=== PATIENT | male | born 1965 | race Caucasian/White ===

== ENCOUNTER 2021-06-20 11:27 | Inpatient (IN) ==
--- NOTE | 2021-06-20 12:43 | XRay Report ---
XR chest 2V PA/lateral HISTORY: Shortness of breath. Cough. COMPARISON: None. FINDINGS: The lungs are clear. Cardiac silhouette is normal in size. No pleural effusions. No pneumot horax. IMPRESSION: No acute process. ACT 112: Negative or not required by law. Electronically signed by: Lalit Orlando M.D. 06/20/2021 12:42 PM
[2021-06-20 12:45] LABS: Basophils # (auto) 0.02 K/uL (0-0.2); Basophils % (auto) 0.5 %; Eosinophils # (auto) 0.15 K/uL (0-0.5); Eosinophils % (auto) 3.4 %; Hematocrit (blood only) 46.5 % (42-52); Immature Granulocytes # (auto) 0.04 K/uL (0.00-0.02); Immature Granulocytes % (auto) 0.9 %; Lymphocytes # (auto) 1.52 K/uL (1.2-3.4); Lymphocytes % (auto) 34.6 %; Mean Corpuscular Hemoglobin 29.4 pg (25-34); Mean Corpuscular Hgb Conc 34.4 g/dL (32-36); Mean Corpuscular Volume 85.3 fL (80-100); Mean Platelet Volume 10.5 fL (7.4-10.4); Monocytes # (auto) 0.55 K/uL (0.11-0.59); Monocytes % (auto) 12.5 %; Neutrophils # (auto) 2.11 K/uL (1.4-6.5); Neutrophils % (auto) 48.1 %; Platelet Count 230 K/uL (130-400); RDW Coefficient of Variation 13.3 % (11.5-14.5); RDW Standard Deviation 41.6 fL (36.4-46.3); Red Blood Count 5.45 M/uL (4.7-6.1); White Blood Count 4.39 K/uL (4.8-10.8)
[2021-06-20 13:04] LABS: Albumin Globulin Ratio 1.4 (0.9-2); Albumin Level 4.4 gm/dl (3.4-5.0); BUN Creatinine Ratio 14.3 (10-20); Bilirubin,Total 0.7 mg/dl (0.2-1.0); Calcium 9.1 mg/dl (8.5-10.1); Est GFR (African American) 28.4 ml/min; Est GFR (Non-African American) 24.5 ml/min; Globulin 3.2 gm/dl (2.5-4.0); Potassium 5.7 mmol/L (3.5-5.1); Total Protein 7.6 gm/dl (6.0-8.3)
[2021-06-20 13:22] LABS: Influenza A virus by PCR Negative (Neg); Influenza B virus by PCR Negative (Neg); RSV by PCR Negative (Neg)
[2021-06-20 13:27] LABS: SARS CoV2 RNA(COVID-19) InHosp POSITIVE (Negative)
[2021-06-20] MEDS ORDERED: ONDANSETRON INJ 2 MG/ML 2 ML VIAL IV STA (14:19)
[2021-06-20] MEDS ORDERED: SODIUM CHLORIDE 0.9% 1000ML 1,000 ML IV ONE (14:19)
--- NOTE | 2021-06-20 14:27 | Emergency Department Note ---
Impression & Plan Weakness, CHRISTINA (acute kidney injury), Vomiting and diarrhea, COVID-19, Acute hyponatremia ED Provider Note NAME: GRICEL MALDONADO AGE: 56 SEX: M : 1965 ARRIVES VIA: Walk-In INFORMANT: [Patient] ED PROVIDER(S): [Jerman Carrillo MD] CHIEF COMPLAINT: Referred by HISTORY OF PRESENT ILLNESS: The patient is a 56-year-old male who presents to the ER with 8 days of sympt oms. For the last 5 or 6 days, he has felt quite a bit worse. He has had vomiting and diarrhea. Some occasional fever. The patient has noticed some chills and a mild cough. He has a slight stuffy nose. No sore throat, no shortness of breath. He does not have his COVID or influenza vaccinations. No k nown exposures to either. The patient states that in the last couple of days, he has been feeling quite weak. He is worried about dehydration. Of note, on Thursday, 2 days ago, the patient had a telehealth visit and was prescribed doxycycline for potential sinusitis. He has been using Pepto-Bismol for his diarrhea, Sudafed for his nasal congestion. REVIEW OF SYSTEMS: See HPI for pertinent positives and negatives. A total of ten systems were reviewed and were otherwise negative. PMHx/PSHx: See Below SOCIAL HISTORY: See Below. PHYSICAL EXAM: GENERAL: Patient is in no acute distress. Wearing a mask. HEENT: No acute trauma, normocephalic atraumatic, mucous membranes moist, no nasal congestion, no scleral icterus. NECK: No stridor, no adenopathy, no meningismus, trachea is midline. LUNGS: Clear to auscultation bilaterally, no wheeze, no rhonchi, breath sounds equal. HEART: Without murmurs gallops or rubs, regular rate and rhythm. ABDOMEN: Soft, nontender, bowel sounds positive, no hernias, no peritonitis. EXTREMITIES: No cyanosis or edema, full range of motion of all the joints without pain or difficulty, no signs for acute trauma. NEUROLOGIC: Oriented x 3, no acute motor or sensory deficits, no focal weakness. SKIN: No rash, no jaundice, no diaphoresis. DIFFERENTIAL DIAGNOSIS: Infection, COVID-19, influenza, dehydration, metabolic abnormality, hypo/hyperglycemia, electrolyte disturbance, anemia, hypoxia, cardiac sources, as well as other pathologies. EMERGENCY DEPARTMENT COURSE/PROCEDURES: ECG: Indication was weakness. The ECG shows a normal sinus rhythm with a rate of 68. There is no ST elevation, no PVCs. There is potential lateral infarct seen thought to be old. QTC is 435. Continuous Cardiac Monitoring: An order was placed for continuous cardiac monitoring. The monitor shows a rate of 71 with normal sinus rhythm. MEDICAL DECISION MAKING: There is a lower white count, more consistent with a viral illness. There is a normal hemoglobin and platelet count. Sodium was low at 129, potassium was a little bit high at 5.7. There was evidence for acute kidney injury with a creatinine of 2.73. Lactic acid level was not elevated making sepsis less likely. Alk phos was a bit high, the remaining liver enzymes were unremarkable. The patient appeared to be in a euthyroid state. COVID testing returned positive. Influenza and RSV testing returned negative. Chest x-ray does not show pneumonia. The patient presents with over a week of symptoms. He is positive for COVID-19. He has acute kidney injury from his vomiting and diarrhea. His sodium is low. He requires a hospital stay. I spoke with the patient, I spoke with case management, the on-call hospitalist was consulted. Patient was given IV saline, 1 L. He received IV Zofran for nausea. He is currently resting comfortably. Past Med/Surg History Medical History Recurrent sinus infections Family History (Updated 12/20/20 @ 07:55 by Sierra Neal) Father Myocardial infarction Denies family history of Ovarian cancer Prostate cancer Breast cancer Colorectal cancer Social History Smoking Status: Never smoker Age Started Using Tobacco: 19; Age Quit Using Tobacco: 28; packs per day: 0.5; Years Smoked: 9; Cigarettes Per Day: 10; Number of Years Since Quit: 27; Second Hand Exposure: No; Hx Alcohol Use: No Hx Substance Use: No Visual Impairment: No Limitations Hearing Ability: Normal marital status: Current Living Situation: Spouse current occupational status: employed Feels Safe at Home: Yes Childhood Exposure to Second-Hand Smoke: Yes Dental Care, Regularly: Yes Physical Activity Frequency: 3-4 Times per Week Allergies Allergies Allergy/AdvReac Type Severity Reaction Status Date / Time Penicillins Allergy Mild Unverified 06/11/21 14:01 Home Meds Home Medications Medication Instructions Recorded Confirmed plohpjk-ufpsoobqahbjg-kkruqwkj 250 1 tab PO Q6H PRN 06/11/21 06/20/21 mg-250 mg-65 mg tablet (Excedrin Extra Strength) loratadine 10 mg tablet 10 mg PO DAILY PRN 06/11/21 06/20/21 pseudoephedrine HCl 120 mg 60 mg PO BID PRN tab 06/11/21 06/20/21 tablet,extended release (Sudafed 12 Hour) amlodipine 5 mg tablet 5 mg PO HS 06/20/21 06/20/21 lisinopril 40 mg tablet 40 mg PO QPM 06/20/21 06/20/21 metoprolol succinate 50 mg 50 mg PO QPM 06/20/21 06/20/21 tablet,extended release 24 hr potassium chloride 20 mEq 40 meq PO QPM 06/20/21 06/20/21 tablet,extended release(part/cryst) spironolactone 50 mg tablet 100 mg PO QPM 06/20/21 06/20/21 Previous Rx's Medication Instructions Recorded atorvastatin 40 mg tablet 40 mg PO QPM #90 tab 12/20/20 ibuprofen 800 mg tablet 800 mg PO TID PRN #270 tab 12/20/20 levothyroxine 50 mcg tablet 50 mcg PO DAILY #90 tab 12/20/20 doxycycline hyclate 100 mg capsule 100 mg PO BID #14 cap 06/18/21 ondansetron HCl 8 mg tablet 8 mg PO Q8H PRN #30 tab 06/20/21 Results & Data (ED) Vital Signs Vital Signs - 24 hr 06/20/21 11:53 06/20/21 14:42 Temperature 37.1 C Temperature Source Temporal Artery Scan Pulse Rate 71 Pulse Rate [Apical] 64 Respiratory Rate 18 15 Respiratory Effort / Characteristics Non-Labored Spontaneous Respiratory Depth Normal Respiratory Pattern Regular Blood Pressure 108/75 Blood Pressure [Right Arm] 138/85 Blood Pressure Mean 86 Blood Pressure Mean [Right Arm] 102 Blood Pressure Position Sitting Pulse Oximetry 95 95 Oxygen Delivery Method Room Air Room Air Sepsis Recent Fever Within 48 Hours Yes Sepsis New/Unexplained Change in Mental Status No Sepsis Action Taken by Nursing No Action Required Home Medications Current Medication List: was personally reviewed by me Laboratory Data Attestation: I reviewed the patient's lab results. Result diagrams: 06/20/21 12:24 06/20/21 12:24 Lab Results 06/20/21 06/20/21 06/20/21 Range/Units 12:24 12:24 12:24 WBC 4.39 L (4.8-10.8) K/uL RBC 5.45 (4.7-6.1) M/uL Hgb 16.0 (14.0-18.0) g/dL Hct 46.5 (42-52) % MCV 85.3 (80-100) fL MCH 29.4 (25-34) pg MCHC 34.4 (32-36) g/dL RDW Std Deviation 41.6 (36.4-46.3) fL RDW Coeff of Cathie 13.3 (11.5-14.5) % Plt Count 230 (130-400) K/uL MPV 10.5 H (7.4-10.4) fL Immature Gran % (Auto) 0.9 % Neut % (Auto) 48.1 % Lymph % (Auto) 34.6 % Runnels % (Auto) 12.5 % Eos % (Auto) 3.4 % Baso % (Auto) 0.5 % Neut # (Auto) 2.11 (1.4-6.5) K/uL Lymph # (Auto) 1.52 (1.2-3.4) K/uL Runnels # (Auto) 0.55 (0.11-0.59) K/uL Eos # (Auto) 0.15 (0-0.5) K/uL Baso # (Auto) 0.02 (0-0.2) K/uL Immature Gran # (Auto) 0.04 H (0.00-0.02) K/uL Sodium 129 L (136-145) mmol/L Potassium 5.7 H (3.5-5.1) mmol/L Chloride 100 (98-107) mmol/L Carbon Dioxide 21 (21-32) mmol/L Anion Gap 8 (3-11) BUN 39 H (6-23) mg/dl Creatinine 2.73 H (0.6-1.4) mg/dl Est Cr Clr Drug Dosing 28.0 ml/min Est GFR ( Amer) 28.4 ml/min Est GFR (Non-Af Amer) 24.5 ml/min BUN/Creatinine Ratio 14.3 (10-20) Glucose 114 H (70-99(Fasting)) mg/dl Calcium 9.1 (8.5-10.1) mg/dl Magnesium (1.7-2.4) mg/dl Total Bilirubin 0.7 (0.2-1.0) mg/dl AST 30 (13-39) U/L ALT 39 (7-52) U/L Alkaline Phosphatase 131 H (34-104) U/L Total Protein 7.6 (6.0-8.3) gm/dl Albumin 4.4 (3.4-5.0) gm/dl Globulin 3.2 (2.5-4.0) gm/dl Albumin/Globulin Ratio 1.4 (0.9-2) Procalcitonin (0-0.5) ng/ml TSH (0.300-4.500) uIu/ml SARS-CoV-2 (PCR) POSITIVE A* (Negative) Influenza Type A (PCR) Negative (Neg) Influenza Type B (PCR) Negative (Neg) RSV (RT-PCR) Negative (Neg) 06/20/21 06/20/21 06/20/21 Range/Units 12:24 12:24 14:19 WBC (4.8-10.8) K/uL RBC (4.7-6.1) M/uL Hgb (14.0-18.0) g/dL Hct (42-52) % MCV (80-100) fL MCH (25-34) pg MCHC (32-36) g/dL RDW Std Deviation (36.4-46.3) fL RDW Coeff of Cathie (11.5-14.5) % Plt Count (130-400) K/uL MPV (7.4-10.4) fL Immature Gran % (Auto) % Neut % (Auto) % Lymph % (Auto) % Runnels % (Auto) % Eos % (Auto) % Baso % (Auto) % Neut # (Auto) (1.4-6.5) K/uL Lymph # (Auto) (1.2-3.4) K/uL Runnels # (Auto) (0.11-0.59) K/uL Eos # (Auto) (0-0.5) K/uL Baso # (Auto) (0-0.2) K/uL Immature Gran # (Auto) (0.00-0.02) K/uL Sodium (136-145) mmol/L Potassium (3.5-5.1) mmol/L Chloride (98-107) mmol/L Carbon Dioxide (21-32) mmol/L Anion Gap (3-11) BUN (6-23) mg/dl Creatinine (0.6-1.4) mg/dl Est Cr Clr Drug Dosing ml/min Est GFR ( Amer) ml/min Est GFR (Non-Af Amer) ml/min BUN/Creatinine Ratio (10-20) Glucose (70-99(Fasting)) mg/dl Calcium (8.5-10.1) mg/dl Magnesium 1.8 (1.7-2.4) mg/dl Total Bilirubin (0.2-1.0) mg/dl AST (13-39) U/L ALT (7-52) U/L Alkaline Phosphatase (34-104) U/L Total Protein (6.0-8.3) gm/dl Albumin (3.4-5.0) gm/dl Globulin (2.5-4.0) gm/dl Albumin/Globulin Ratio (0.9-2) Procalcitonin 0.07 (0-0.5) ng/ml TSH 2.023 (0.300-4.500) uIu/ml SARS-CoV-2 (PCR) (Negative) Influenza Type A (PCR) (Neg) Influenza Type B (PCR) (Neg) RSV (RT-PCR) (Neg) Administered Medications Sodium Chloride (Nss 1000ml) 1,000 mls @ 175 mls/hr IV .[id number] MALAIKA Stop: 06/21/21 08:23 Last Admin: 06/20/21 16:57 Dose: 175 mls/hr Documented by: [id number] Discontinued Medications Sodium Chloride (Nss 1000ml) 1,000 mls @ 999 mls/hr IV .Q1H1M ONE Stop: 06/20/21 15:19 Last Infusion: 06/20/21 16:58 Dose: 0 mls/hr Documented by: [id number] Admin: 06/20/21 14:46 Dose: 999 mls/hr Documented by: [id number] Ondansetron HCl (Ondansetron Inj 2 Mg/Ml 2 Ml Vial) 4 mg IV NOW STA Stop: 06/20/21 14:20 Last Admin: 06/20/21 14:46 Dose: 4 mg Documented by: [id number] Imaging Data Radiologist's Impression: Chest X-Ray 06/20/21 11:57 XR chest 2V PA/lateral HISTORY: Shortness of breath. Cough. COMPARISON: None. FINDINGS: The lungs are clear. Cardiac silhouette is normal in size. No pleural effusions. No pneumothorax. IMPRESSION: No acute process. ACT 112: Negative or not required by law. Electronically signed by: Lalit Orlando M.D. 06/20/2021 12:42 PM Discharge Plan Visit Data Chief Complaint: Referred by Doctor Stated Complaint: FEVER CHILLS DIARRHEA WEAK COUGH ED Provider: Jerman Carrillo Discharge Problem: Weakness, CHRISTINA (acute kidney injury), Vomiting and diarrhea, COVID-19, Acute hyponatremia Patient Disposition: Admitted As Inpatient Condition: Fair Discharge Instructions Interventions: ED Discharge Assessment Last Done: 06/20/21 17:22
--- NOTE | 2021-06-20 15:01 | History & Physical Report ---
Date of Service June 20, 2021 Assessment & Plan (1) Diarrhea: Plan: Pending c. diff and PCR stool testing; if negative will start on Imodium Suspect secondary to SARS-COV-2 (2) Mesenteric panniculitis: Plan: Seen on prior outpatient CT as workup for hyperaldosteronism on May 24. ?secondary to COVID. If diarrhea not improving consider mesenteric panniculitis causing diarrhea ?Rx prednisone. No abdominal pain or severe obstructive symptoms to suggest need to rescan at this time. Lactate WNL (3) SARS-CoV-2 positive: Plan: No pneumonia caused by this. No need for specific COVID-19 treatment at this time. Unvaccinated First day of illness: June 12 First COVID test positive: June 20 (4) CHRISTINA (acute kidney injury): Plan: Suspect pre-renal in setting of diarrhea as above. UA unremarkable. NSS 1L bolus given in ER Start 1.5x maintenance @ 175ml/hr for 3L Monitor BMP in AM (5) Hyperkalemia: Plan: Suspect secondary to CHRISTINA with spironolactone and potassium supplementation Repeat with next set of labs. Anticipate no specific treatment required for this other than hydration. Monitor closely for rebound hypokalemia due to hyperaldosteronism. (6) Hyperaldosteronism: Plan: Hold potassium supplementation and spironolactone as above (7) Hypothyroidism: Plan: TSH WNL Continue levothyroxine 50 mcg PO daily (8) Primary hypopituitarism: Plan: Noted on no specific medications for this (9) Hypertension: Plan: Holding spironolactone and lisinopril in setting of CHRISTINA as above Continue metoprolol succinate 50mg PO daily (10) Hyperlipidemia: Plan: Continue atorvastatin 40mg PO daily Plan: VTE Prophylaxis - in setting of SARS-COV-2 will start heparin 5000 units SQ TID Diet - low potassium Disposition - admit to med/tele Admission and Anticipated Discharge Date Admission Date: June 20, 2021 History of Present Illness Chief Complaint: Diarrhea Primary Care Provider: NAYELY Klein Ever Woodall is a 56 year old male who presents to the ER with diarrhea for the past 8 days. Associated fever, chills, nausea, vomiting, loss of appetite, generalized weakness, nasal congestion and sinus pain. Nausea and vomiting especially bad in the last 2-3 days. No significant abdominal pain. Initially he was treated outpatient with doxycycline for sinusitis as he commonly gets this, this time of year. This is on a background of being treated for hyperaldosteronism by Dr Kim and was recently started on spironolactone 2-3 weeks ago, doubled at his appointment with Dr Kim 9 days ago. He is also taking potassium supplementation for hypokalemia. He recently had a CT abdominal scan for workup for hyperaldosteronism which showed mesenteric panniculitis. He reports not having diarrhea at that time. In the ER he tested positive for SARS-COV-2. He is unvaccinated. He is not short of breath or requiring oxygen at this time. He was started rehydrated with NSS 1L bolus and ondansetron for nausea. Allergies Allergy/AdvReac Type Severity Reaction Status Date / Time Penicillins Allergy Mild Unverified 06/11/21 14:01 Home Medications Medication Instructions Recorded Confirmed Type atorvastatin 40 mg tablet 40 mg PO QPM #90 tab 12/20/20 06/20/21 Rx ibuprofen 800 mg tablet 800 mg PO TID PRN #270 tab 12/20/20 06/20/21 Rx levothyroxine 50 mcg tablet 50 mcg PO DAILY #90 tab 12/20/20 06/20/21 Rx nloypwi-xozlwpxwawkrs-hmefvdje 250 1 tab PO Q6H PRN 06/11/21 06/20/21 History mg-250 mg-65 mg tablet (Excedrin Extra Strength) loratadine 10 mg tablet 10 mg PO DAILY PRN 06/11/21 06/20/21 History pseudoephedrine HCl 120 mg 60 mg PO BID PRN tab 06/11/21 06/20/21 History tablet,extended release (Sudafed 12 Hour) doxycycline hyclate 100 mg capsule 100 mg PO BID #14 cap 06/18/21 06/20/21 Rx amlodipine 5 mg tablet 5 mg PO HS 06/20/21 06/20/21 History lisinopril 40 mg tablet 40 mg PO QPM 06/20/21 06/20/21 History metoprolol succinate 50 mg 50 mg PO QPM 06/20/21 06/20/21 History tablet,extended release 24 hr ondansetron HCl 8 mg tablet 8 mg PO Q8H PRN #30 tab 06/20/21 06/20/21 Rx potassium chloride 20 mEq 40 meq PO QPM 06/20/21 06/20/21 History tablet,extended release(part/cryst) spironolactone 50 mg tablet 100 mg PO QPM 06/20/21 06/20/21 History Past Med/Surg History Medical History (Updated 06/21/21 @ 01:51 by Orion Hahn MD) Arthritis Hyperaldosteronism Hypothyroidism Primary hypopituitarism Recurrent sinus infections Family History (Updated 12/20/20 @ 07:55 by Sierra Neal) Father Myocardial infarction Denies family history of Ovarian cancer Prostate cancer Breast cancer Colorectal cancer Social History Smoking Status: Former smoker Age Started Using Tobacco: 19; Age Quit Using Tobacco: 28; packs per day: 0.5; Years Smoked: 9; Cigarettes Per Day: 10; Number of Years Since Quit: 27; Second Hand Exposure: No; Do You Dip or Chew Tobacco: Yes; Tobacco Cessation Education Requested by Patient: No Hx Alcohol Use: No Hx Substance Use: No Preferred Language: French Communication Ability: Effective Visual Impairment: No Limitations Hearing Ability: Normal Saloonkeeper Required: No Beliefs That Will Affect Care: None marital status: Current Living Situation: Spouse current occupational status: employed Other Information That Helps Us Care for You: No Feels Safe at Home: Yes Childhood Exposure to Second-Hand Smoke: Yes Dental Care, Regularly: Yes Physical Activity Frequency: 3-4 Times per Week Assistive Devices: Glasses Review of Systems Review of Systems: All systems reviewed & are unremarkable except as noted in HPI & below Physical Exam Constitutional: WD/WN, vitals as above Eyes: + anicteric sclerae; normal pupil size ENMT: external ear and nose normal, oropharynx normal Respiratory: normal respiratory effort; no respiratory distress Auscultation: + crackles (fine bibasal); no wheezes Cardiovascular: RRR, no murmur, no edema Gastrointestinal (Abdomen): normal bowel sounds, soft, nontender, no hepatosplenomegaly Musculoskeletal: no cyanosis or clubbing, extremities motor strength 5/5 Skin: no rashes, warm and dry Neurologic: moves all extremities and awake; no focal motor deficits and not confused Speech / Cognition: normal speech Motor/Sensory: no tremor Psychiatric: A+Ox3, euthymic affect Results & Data Results & Data ([facility]) Vital Signs (Past 12 Hours) Vital Signs Temp Pulse Pulse Resp BP BP Pulse Ox 06/20/21 14:42 64 15 138/85 95 06/20/21 11:53 37.1 C 71 18 108/75 95 Laboratory Results Abnormal lab results 06/20/21 06/20/21 06/20/21 Range/Units 12:24 12:24 12:24 WBC 4.39 L (4.8-10.8) K/uL MPV 10.5 H (7.4-10.4) fL Immature Gran # (Auto) 0.04 H (0.00-0.02) K/uL Sodium 129 L (136-145) mmol/L Potassium 5.7 H (3.5-5.1) mmol/L BUN 39 H (6-23) mg/dl Creatinine 2.73 H (0.6-1.4) mg/dl Glucose 114 H (70-99(Fasting)) mg/dl Alkaline Phosphatase 131 H (34-104) U/L SARS-CoV-2 (PCR) POSITIVE A* (Negative) Diagnostic Findings XR chest 2V PA/lateral HISTORY: Shortness of breath. Cough. COMPARISON: None. FINDINGS: The lungs are clear. Cardiac silhouette is normal in size. No pleural effusions. No pneumothorax. IMPRESSION: No acute process. Medications Administered ER Medications Given: NSS 1L bolus Ondansetron 4mg IV ECG Indication: toxicologic (electrolyte abnormality) Rate (beats per minute): 68 Rhythm: normal sinus Findings: + other (poor R wave progression) and + left axis deviation Comparison ECG Date: from (2008) Change: the following changes noted (poor R wave progression ?lead placement is new) Code Status & VTE Plan Code Status Full VTE Prophylaxis Plan VTE Prophylaxis will be ordered: Yes PG Care Time/CCT Total # of Minutes Spent Total Time Spent with Patient: Total time spent is greater than 50% in coordination of care (as documented) at patient's floor/unit and/or counseling patient: Coding Level of Care Code 86399 Initial Inpt Care Lvl 3 Diagnoses SARS-CoV-2 positive U07.1 Diarrhea R19.7 CHRISTINA (acute kidney injury) N17.9 Hyperkalemia E87.5 Hyperaldosteronism E26.9 Hypothyroidism E03.9 Primary hypopituitarism E23.0 Mesenteric panniculitis K65.4 Hypertension I10 Hyperlipidemia E78.5
[2021-06-20] MEDS: SODIUM CHLORIDE 0.9% 1000ML 1,000 ML IV SCH (16:57)
[2021-06-20] MEDS ORDERED: LORATADINE 10 MG TAB PO PRN (17:22)
[2021-06-20] MEDS ORDERED: ONDANSETRON INJ 2 MG/ML 2 ML VIAL IV PRN (17:22)
[2021-06-20] MEDS ORDERED: LOPERAMIDE HCL 2 MG CAP PO PRN (17:22)
[2021-06-20] MEDS ORDERED: ACETAMINOPHEN 325 MG TAB PO PRN (17:22)
[2021-06-20] MEDS: ATORVASTATIN 40 MG TAB PO SCH (21:14)
[2021-06-20] MEDS: METOPROLOL SUCC 50MG EXT REL TAB PO SCH (21:14)
[2021-06-20] MEDS ORDERED: ENOXAPARIN INJ 30 MG/0.3 ML SYR SQ SCH (22:00)
[2021-06-20 22:16] LABS: BUN Creatinine Ratio 15.1 (10-20); Calcium 7.9 mg/dl (8.5-10.1); Est GFR (African American) 33.4 ml/min; Est GFR (Non-African American) 28.8 ml/min; Potassium 4.7 mmol/L (3.5-5.1)
[2021-06-20 22:55] LABS: Appearance Urine Clear (Clear); Bilirubin Urine Negative (Negative); Blood Urine Negative (Negative); Color Urine Yellow; Glucose Urine UA Negative (Negative); Ketones Urine Negative (Negative); Leukocyte Esterase Urine Negative (Negative); Nitrite Urine Negative (Negative); Protein Urine Negative (Negative); Specific Gravity Urine 1.012 (1.000-1.030); Urobilinogen Urine Negative (Negative)
[2021-06-20] MEDS: HEPARIN SOD 5,000 UNIT/0.5 ML VIAL SQ SCH (23:01)
[2021-06-21] MEDS: SODIUM CHLORIDE 0.9% 1000ML 1,000 ML IV SCH ×3 (00:05→18:21)
[2021-06-21] MEDS: LEVOTHYROXINE SODIUM 50 MCG TABLET PO SCH (05:39)
[2021-06-21] MEDS: HEPARIN SOD 5,000 UNIT/0.5 ML VIAL SQ SCH ×3 (05:39→21:54)
[2021-06-21 05:42] LABS: Hematocrit (blood only) 40.3 % (42-52); Hemoglobin 13.8 g/dL (14.0-18.0); Mean Corpuscular Hemoglobin 29.5 pg (25-34); Mean Corpuscular Hgb Conc 34.2 g/dL (32-36); Mean Corpuscular Volume 86.1 fL (80-100); Mean Platelet Volume 10.1 fL (7.4-10.4); Platelet Count 166 K/uL (130-400); RDW Coefficient of Variation 13.4 % (11.5-14.5); Red Blood Count 4.68 M/uL (4.7-6.1); White Blood Count 4.34 K/uL (4.8-10.8)
[2021-06-21 06:10] LABS: Basophils # (auto) 0.02 K/uL (0-0.2); Basophils % (auto) 0.5 %; Eosinophils # (auto) 0.18 K/uL (0-0.5); Eosinophils % (auto) 4.1 %; Immature Granulocytes # (auto) 0.03 K/uL (0.00-0.02); Immature Granulocytes % (auto) 0.7 %; Lymphocytes # (auto) 2.17 K/uL (1.2-3.4); Monocytes # (auto) 0.55 K/uL (0.11-0.59); Monocytes % (auto) 12.7 %; Neutrophils # (auto) 1.39 K/uL (1.4-6.5)
[2021-06-21 06:32] LABS: BUN Creatinine Ratio 16.3 (10-20); Calcium 7.6 mg/dl (8.5-10.1); Creatinine Clr Calc Pharmacy 36.8 ml/min; Est GFR (African American) 39.5 ml/min; Est GFR (Non-African American) 34.1 ml/min
[2021-06-21 11:02] LABS: Adenovirus F 40/41 PCR Not Detected (NotDetected); Astrovirus PCR Not Detected (NotDetected); Campylobacter PCR Not Detected (NotDetected); Clostridium diff Toxin A/B PCR Not Detected (NotDetected); Cryptosporidium PCR Not Detected (NotDetected); Cyclospora cayetanensis PCR Not Detected (NotDetected); Entamoeba histolytica PCR Not Detected (NotDetected); Enteroaggregative E.coli(EAEC) Not Detected (NotDetected); Enteropathogenic E.coli (EPEC) Not Detected (NotDetected); Enterotoxigenic E.coli (ETEC) Not Detected (NotDetected); Giardia lamblia PCR Not Detected (NotDetected); Norovirus GI/GII PCR Not Detected (NotDetected); Plesiomonas shigelloides PCR Not Detected (NotDetected); Rotavirus A PCR Not Detected (NotDetected); Salmonella PCR Not Detected (NotDetected); Sapovirus PCR Not Detected (NotDetected); Shiga-like Toxin E.coli (STEC) Not Detected (NotDetected); Shigella/Enteroinvasive E.coli Not Detected (NotDetected); Vibrio cholerae PCR Not Detected (NotDetected); Vibrio species PCR Not Detected (NotDetected); Yersinia enterocolitica PCR Not Detected (NotDetected)
--- NOTE | 2021-06-21 16:43 | Hospitalist Progress Note ---
Date of Service June 21, 2021 Assessment & Plan (1) Diarrhea: Plan: - IMPROVING - suspect secondary to COVID - C. diff and PCR stool studies are negative; Imodium PRN (so far hasn't needed any) (2) Mesenteric panniculitis: Plan: - Seen on prior outpatient CT as workup for hyperaldosteronism on May 23. - If diarrhea not improving consider mesenteric panniculitis causing diarrhea ?Rx prednisone. -- however seems to be improving - No abdominal pain or severe obstructive symptoms to suggest need to rescan at this time. - Lactate WNL (3) SARS-CoV-2 positive: Plan: - No pneumonia caused by this. No need for specific COVID-19 treatment at this time; remains on RA - Unvaccinated - First day of illness: June 12; First COVID test positive: June 20 (4) CHRISTINA (acute kidney injury): Plan: - Suspect pre-renal in setting of diarrhea as above. UA unremarkable. - NSS 1L bolus given in ER - then given 1.5x maintenance @ 175ml/hr for 3L - Continue NSS at 80 mL/hr for now with labs in AM - Hold Lisinopril (5) Hyperkalemia: Plan: - Suspect secondary to CHRISTINA with spironolactone and potassium supplementation - improving at 5.2 and will monitor - Anticipate no specific treatment required for this other than hydration. - Monitor closely for rebound hypokalemia due to hyperaldosteronism. (6) Hyperaldosteronism: Plan: - Hold potassium supplementation and spironolactone as above (7) Hypothyroidism: Plan: - TSH WNL - Continue levothyroxine 50 mcg PO daily (8) Primary hypopituitarism: Plan: - Noted on no specific medications for this (9) Hypertension: Plan: - Holding spironolactone and lisinopril in setting of CHRISTINA as above; hold amlodipine - Continue metoprolol succinate 50mg PO daily (10) Hyperlipidemia: Plan: - Continue atorvastatin 40mg PO daily (11) Hyponatremia: Plan: - Likely multifactorial - holding around 128-129; await AM labs Plan: VTE Prophylaxis - in setting of SARS-COV-2 will start heparin 5000 units SQ TID Diet - low potassium Disposition - AM labs; anticipate likely can return home tomorrow pending labs and diarrhea/symptoms Admission and Anticipated Discharge Date Admission Date: June 20, 2021 Subjective No acute events overnight. Reports feeling better and only had one bowel movement this AM. PCR testing and C. diff is negative. Creatinine is improving. Has a cough but no shortness of breath in regards to COVID. Has been able to eat better today. Verbalizes no new complaints Review of Systems Review of Systems: All systems reviewed & are unremarkable except as noted in Subjective Physical Exam Physical Exam: PHYSICAL EXAM General Appearance: WDWN in NAD who is A&O x 3 HEENT: Head is normocephalic/atraumatic; Hearing grossly intact Neck: Supple; Trachea midline; Neg JVD Heart: RRR with no M/G/R Lungs: CTA in all lung river bilaterally; Respirations unlabored; Neg accessory muscle use Abdomen: Soft, non-tender, non-distended; Positive BS x 4 quadrants Extremities: Neg cyanosis or edema Neurological: Speech clear; Gross motor/sensory function intact; Neg focal n eurologic deficits Psychiatric: Appropriate mood/affect Skin: Normal Color; Warm/Dry Results & Data Results & Data ([facility]) Vital Signs (Past 12 Hours) Vital Signs Temp Pulse Resp BP Pulse Ox 06/21/21 14:32 37.6 C H 71 20 127/79 95 06/21/21 09:45 67 18 113/86 95 06/21/21 05:43 37.0 C 60 20 129/81 94 PG Care Time/CCT Total # of Minutes Spent Total Time Spent with Patient: Total time spent is greater than 50% in coordination of care (as documented) at patient's floor/unit and/or counseling patient: Coding Level of Care Code 22834 Subseq Hosp Care Lvl 3 Diagnoses Diarrhea R19.7 Mesenteric panniculitis K65.4 SARS-CoV-2 positive U07.1 CHRISTINA (acute kidney injury) N17.9 Hyperkalemia E87.5 Hyperaldosteronism E26.9 Hypothyroidism E03.9 Primary hypopituitarism E23.0 Hypertension I10 Hyperlipidemia E78.5 Hyponatremia E87.1
--- NOTE | 2021-06-21 19:09 | Electrocardiogram Report ---
Test Reason : Blood Pressure : / mmHG Vent. Rate : 068 BPM Atrial Rate : 068 BPM P-R Int : 158 ms QRS Dur : 084 ms QT Int : 410 ms P-R-T Axes : 017 -63 042 degrees QTc Int : 435 ms Normal sinus rhythm Left axis deviation Possible Anterior infarct , age undetermined Abnormal ECG When compared with ECG of 31-MAY-2009 10:40, Borderline criteria for Anterior infarct are now Present Confirmed by Bryan Mayes ([id number]) on 06/21/2021 7:09:11 PM Referred By: Confirmed By:Bryan Mayes
[2021-06-21] MEDS: METOPROLOL SUCC 50MG EXT REL TAB PO SCH (21:54)
[2021-06-21] MEDS: ATORVASTATIN 40 MG TAB PO SCH (21:54)
[2021-06-22] MEDS: HEPARIN SOD 5,000 UNIT/0.5 ML VIAL SQ SCH (06:16)
[2021-06-22] MEDS: LEVOTHYROXINE SODIUM 50 MCG TABLET PO SCH (06:17)
[2021-06-22 06:56] LABS: BUN Creatinine Ratio 16.6 (10-20); Calcium 7.8 mg/dl (8.5-10.1); Creatinine Clr Calc Pharmacy 49.2 ml/min; Est GFR (African American) 55.5 ml/min; Est GFR (Non-African American) 47.9 ml/min; Potassium 4.5 mmol/L (3.5-5.1)
[2021-06-22] MEDS: SODIUM CHLORIDE 0.9% 1000ML 1,000 ML IV SCH (07:08)
--- NOTE | 2021-06-22 18:55 | Discharge Summary ---
Date of Service June 22, 2021 Admission HPI Per Admitting Provider Ever Woodall is a 56 year old male who presents to the ER with diarrhea for the past 8 days. Associated fever, chills, nausea, vomiting, loss of appetite, generalized weakness, nasal congestion and sinus pain. Nausea and vomiting especially bad in the last 2-3 days. No significant abdominal pain. Initially he was treated outpatient with doxycycline for sinusitis as he commonly gets this, this time of year. This is on a background of being treated for hyperaldosteronism by Dr Kim and was recently started on spironolactone 2-3 weeks ago, doubled at his appointment with Dr Kim 9 days ago. He is also taking potassium supplementation for hypokalemia. He recently had a CT abdominal scan for workup for hyperaldosteronism which showed mesenteric panniculitis. He reports not having diarrhea at that time. In the ER he tested positive for SARS-COV-2. He is unvaccinated. He is not short of breath or requiring oxygen at this time. He was started rehydrated with NSS 1L bolus and ondansetron for nausea. Principal Diagnosis covid colitis, resolving metabolic encephalopathy secondary to covid resolving sinusitis Discharge Exam The patient appeared well Vital signs as documented. Lungs are clear to auscultation and appear unlabored Cardiac exam, Rhythm is regular.. No murmurs, rubs or gallops. Abdominal exam reveals normal bowel sounds, soft non tender, no masses Extremities are nonedematous and both pedal pulses are normal. Neurologic exam is alert and oriented, no focal loss of strength or sensation Skin is without bruises or rashes Psychologically is without concerns for anxiety or depression. Discharge Data Allergies Allergy/AdvReac Type Severity Reaction Status Date / Time Penicillins Allergy Mild Unverified 06/11/21 14:01 Consultations 06/20/21 14:27 ED Decision to Admit Stat Hospital Course (1) Diarrhea: - Resolving- suspect secondary to COVID - C. diff and PCR stool studies are negative; (2) Mesenteric panniculitis: - Seen on prior outpatient CT as workup for hyperaldosteronism on May 23. This can be a chronic condition will need outpatient follow-up with gastroenterology - No abdominal pain or severe obstructive symptoms to suggest need to rescan at this time. - Lactate WNL (3) SARS-CoV-2 positive: - No pneumonia caused by this. No need for specific COVID-19 treatment at this time; remains on RA - Unvaccinated - First day of illness: June 12; First COVID test positive: June 20 (4) CHRISTINA (acute kidney injury): Resolved we will hold his diuretics and lisinopril for an additional day resuming his spironolactone on the and lisinopril to with outpatient labs in 1 week. Encourage close outpatient follow-up (5) Hyperkalemia: - Suspect secondary to CHRISTINA with spironolactone and potassium supplementation -improving (6) Hyperaldosteronism: Resume as an outpatient (7) Hypothyroidism: - TSH WNL - Continue levothyroxine 50 mcg PO daily (8) Primary hypopituitarism: - Noted on no specific medications for this (9) Hypertension: - Stepwise resumption of spironolactone and lisinopril as outlined in discharge paperwork - Continue metoprolol succinate 50mg PO daily (10) Hyperlipidemia: - Continue atorvastatin 40mg PO daily (11) Hyponatremia: - Likely multifactorial - holding around 128-130; Total Time Total Time Spent Total Time Spent (In Minutes): It required greater than 30 minutes to prepare this patient for discharge Discharge Plan Discharge Items Patient Disposition: Home - Self-Care Reason For Visit: CHRISTINA Discharge Diagnosis: covid colitis with dehydration and weakness Condition on Discharge: Fair Activity: Per Instructions section Non-emergency contact: Primary Care Provider Call non-emergency contact if: your symptoms worsen and you have a fever Follow-up/Referrals: Rosalina Salas CRNP [Primary Care Provider] - Diet: Regular Ambulatory Orders: Basic Metabolic Panel (Routine) Timeframe: 1 Week Location: Determined by Patient Ordered By: Ran Arango Attending Provider Instructions: You have been diagnosed with covid infection, it would be recommended that you quarantine yourself for 10 days from your first test or first symptoms, and if at the 10th day you have no symptoms the you can come off quarantine but use common sense precautions. Quarantine means attempting to stay away from people who have not had an active covid infection in the past, and if you have to be around others to wear a mask even if you are indoors, do not share a room to sleep in with others until you are out of quarantine. If you still have symptoms at the 10th day, continue to quarantine until you are symptom free for 48 hours With regard to the fogginess that you are feeling, this has been described associated with Covid and should also reduce as you recover For your diarrhea, please keep yourself hydrated and eat healthy frequent small meals Do not restart your spironolactone until thursday06/24/21 and your lisinipril until 06/25/21 please have some blood work on thursday07/01/21 you are given a different antibiotic for your sinus infection as Doxycycline can be associated with GI upset Contact your employer for instructions on return to work covid policy follow up with your primary care by phone this week Pending Studies at Discharge: No Stand-Alone Forms: My [employer], Smoking Cessation Medications and DC Order Prescriptions: New cefdinir 300 mg capsule 300 mg PO BID 10 Days Qty: 20 RF: 0 Continued loratadine 10 mg tablet 10 mg PO DAILY PRN (Reason: allergies) RF: 0 pseudoephedrine HCl [Sudafed 12 Hour] 120 mg tablet extended release 60 mg PO BID PRN (Reason: nasal congestion) RF: 0 Excedrin Extra Strength 250-250-65 mg tablet 1 tab PO Q6H PRN (Reason: Migraine Headache) RF: 0 ondansetron HCl 8 mg tablet 8 mg PO Q8H PRN (Reason: nausea and vomiting) Qty: 30 RF: 0 atorvastatin 40 mg tablet 40 mg PO QPM Qty: 90 RF: 3 levothyroxine 50 mcg tablet 50 mcg PO DAILY Qty: 90 RF: 3 metoprolol succinate 50 mg tablet extended release 24 hr 50 mg PO QPM RF: 0 amlodipine 5 mg tablet 5 mg PO HS RF: 0 potassium chloride 20 mEq tablet,ER particles/crystals 40 meq PO QPM RF: 0 lisinopril 40 mg tablet 40 mg PO QPM RF: 0 spironolactone 50 mg tablet 100 mg PO QPM RF: 0 Discontinued doxycycline hyclate 100 mg capsule 100 mg PO BID Qty: 14 RF: 0 ibuprofen 800 mg tablet 800 mg PO TID PRN (Reason: fever or pain) Qty: 270 RF: 3 Discharge Orders: Discharge Order (Routine); Ordered 06/22/21 Ordered By: Ran Quinonez Admission Data Admit Date/Time: 06/20/21 15:10 Attending Provider: Ran Quinonez Admit Provider: Orion Hahn Primary Care Provider: Rosalina Salas Other Providers: Orion Hahn Coding Level of Care Code D/C DAY MANAGEMENT >30 MINS Diagnoses Diarrhea R19.7 Mesenteric panniculitis K65.4 SARS-CoV-2 positive U07.1 CHRISTINA (acute kidney injury) N17.9 Hyperkalemia E87.5 Hyperaldosteronism E26.9 Hypothyroidism E03.9 Primary hypopituitarism E23.0 Hypertension I10 Hyperlipidemia E78.5 Hyponatremia E87.1
== END 2021-06-22 14:51 | disposition home or self-care (01) | DRG 177 ==
LOC: ED 11:27 → SUATTDRO 15:10 → EDINP 15:10 → 2W 17:22
DX: Z88.0 Allergy status to penicillin; E87.5 Hyperkalemia; E03.9 Hypothyroidism, unspecified; K65.4 Sclerosing mesenteritis; E87.1 Hypo-osmolality and hyponatremia; N17.9 Acute kidney failure, unspecified; E26.9 Hyperaldosteronism, unspecified; T50.0X5A Adverse effect of mineralocorticoids and their antagonists, initial encounter; J32.9 Chronic sinusitis, unspecified; A08.39 Other viral enteritis; T50.3X5A Adverse effect of electrolytic, caloric and water-balance agents, initial encounter; Z79.82 Long term (current) use of aspirin; U07.1 COVID-19; Y92.009 Unspecified place in unspecified non-institutional (private) residence as the place of occurrence of the external cause; E78.5 Hyperlipidemia, unspecified; E23.0 Hypopituitarism; I10 Essential (primary) hypertension; G93.41 Metabolic encephalopathy

== ENCOUNTER 2021-08-11 12:13 | Inpatient (IN) ==
--- NOTE | 2021-08-11 13:03 | Emergency Department Note ---
Impression & Plan Hypomagnesemia, Weakness, Hyponatremia ED Provider Note Name: GRICEL MALDONADO Age: 56 Sex: M Arrives Via: Walk-In Informant: Patient ED Provider: Cornelio Warren MD Chief Complaint: Generalized weakness Impression: As per impressions above Medical Decision Making: Pleasant 56-year-old male with a history of hypertension, hypothyroidism, dyslipidemia arrives for evaluation of generalized weakness 2 months following significant Covid infection. He previously was in acute renal failure and has been follow-up following closely with PCP and for allergy for his renal issues with gradually improving kidney function. He has had some issues with his hypertension has been on several meds including spironolactone. Patient arrives given worsening weakness especially the last few days associated with nausea and vomiting. Patient appears mildly dehydrated though overall feeling unwell. Examination without neurologic findings and lung sounds are clear with patient not appearing to be septic. Work-up reveals significant hyponatremia which would explain his significant symptoms as well as some hypomagnesemia. Suspect this is combination not eating as well as the medications. Rather than give significant fluid bolus at this time given his severe hyponatremia medicine was consulted for further management. Patient is comfortable plan for hospitalizat ion and understands findings. Prior Medical Record and Triage/Nursing Notes reviewed by Me Additional history obtained from chart and significant other Differentials:Infection, dehydration, metabolic abnormality, hypo/hyperglycemia, electrolyte disturbance, anemia, hypoxia, cardiac sources, intracerebral event, toxicologic, neurologic, as well as other pathologies. Vital Signs: reviewed and remarkable for no significant abnormalities Interventions: Normal saline infusion, magnesium 1 g IV Labs:Reviewed and remarkable for hyponatremia, hypomagnesemia amongst others Imagin view chest x-ray unremarkable EKG:Per My Interpretation: Indication weakness: NSR 86 bpm, qtc 459. No Ectopy. No Ischemia. Compared to EKG 06/20/21, no significant changes. Cardiac/Tele Monitoring: Cardiac Monitoring: An Order was placed for continuous cardiac monitoring. The monitor shows a rate of 80 with a normal sinus rhythm. Consults:[facility] hospitalist Dr. Cueto Plan: Disposition:Hospitalization. Condition: Good History of Present Illness:56-year-old gentleman arrives for evaluation of weakness. Patient notes that he had COVID at the end of June followed by a sinus infection and renal failure for which he is following with nephrology. Patient notes that his kidney function he thought was improving. He states over the last few weeks he just been feeling very tired and generalized weakness. Over the last 48 hours no rapid worsening of generalized aches, pains, weakness, nausea, vomiting, fatigue, increasing sinus congestion. He did take some doxycycline starting on Thursday for worsening sinus congestion that his PCP had prescribed. Patient denies any overt chest pain or shortness of breath but states that he has periodic cough due to posterior nasal drainage. Patient says any exertion makes worse rest makes better. He has no appetite and has been eating well. He did apparently vomit prior to arrival but states his abdomen is not hurting him very much right now. ROS: See above HPI for pertinent positives & negatives. A total of 10 systems reviewed and were otherwise negative. Past Medical History:Hypertension, hypothyroidism, dyslipidemia Past Surgical History:See Below Family History:See Below Social History:See Below Home Medications:See Below Allergies:[facility] Vitals:Blood Pressure: 124/87, Pulse 76, RR 18, T 36.9C, O2 96% on RA Physical Exam: GENERAL: Patient is tired/dehydrated appearing and in mild distress. EYES: No scleral icterus, unremarkable pupils. ENT: Mucous membranes dry, no nasal congestion. NECK: No masses appreciated, nomeningismus, trachea is midline. RESPIRATORY: No dyspnea. Clear to auscultation and equal bilaterally. No wheeze, no rhonchi. CARDIOVASCULAR: Regular rate and rhythm.No murmurs, rubs, gallops appreciated. GASTROINTESTINAL: Abdomen soft, non-tender, no peritonitis.Bowel sounds positive.No masses appreciated. BACK: No midline tenderness, no CVA tenderness EXTREMITIES: Normal motion all extremities, no cyanosis, no edema. NEUROLOGIC: Alert and oriented, no acute motor or sensory deficits, no focal weakness, cranial nerves grossly intact. SKIN: No rash, no jaundice, no diaphoresis. PSYCH: Appropriate GCS: 15 ED Course: Times/Reassessments: Patient stable and comfortable with plan for hospitalization. Cornelio Warren MD Past Med/Surg History Medical History Arthritis Hyperaldosteronism Hypothyroidism Mesenteric panniculitis Primary hypopituitarism Recurrent sinus infections Family History Father Myocardial infarction Denies family history of Ovarian cancer Prostate cancer Breast cancer Colorectal cancer Social History (Updated 08/11/21 @ 15:54 by NAYELY Briceno) Smoking Status: Former smoker Tobacco Type: Smokeless Tobacco (Dip or Chew) Age Started Using Tobacco: 19; Age Quit Using Tobacco: 28; packs per day: 0.5; Years Smoked: 9; Cigarettes Per Day: 10; Number of Years Since Quit: 27; Second Hand Exposure: No; Do You Dip or Chew Tobacco: No (quit 06/22); Hx Alcohol Use: No Hx Substance Use: No Preferred Language: Hungarian Communication Ability: Effective Visual Impairment: No Limitations Hearing Ability: Normal Critical Power Technician Required: No Beliefs That Will Affect Care: None marital status: Current Living Situation: Spouse Current Living Situation Comment: Lives with [facility] current occupational status: employed Other Information That Helps Us Care for You: No Feels Safe at Home: Yes Safety Concerns: Feels Safe At This Time Childhood Exposure to Second-Hand Smoke: Yes Dental Care, Regularly: Yes Physical Activity Frequency: 3-4 Times per Week Assistive Devices: None Allergies Allergies Allergy/AdvReac Type Severity Reaction Status Date / Time Penicillins Allergy Mild Unknown Unverified 08/11/21 15:28 Home Meds Home Medications Medication Instructions Recorded Confirmed amlodipine 5 mg tablet 5 mg PO HS 06/20/21 08/11/21 lisinopril 40 mg tablet 40 mg PO HS 06/20/21 08/11/21 metoprolol succinate 50 mg 50 mg PO HS 06/20/21 08/11/21 tablet,extended release 24 hr atorvastatin 40 mg tablet 40 mg PO HS 08/11/21 08/11/21 levothyroxine 50 mcg tablet 50 mcg PO DAILYBB 08/11/21 08/11/21 potassium chloride 20 mEq 40 meq PO HS 08/11/21 08/11/21 tablet,extended release(part/cryst) (Klor-Con M) spironolactone 100 mg tablet 100 mg PO HS 08/11/21 08/11/21 Previous Rx's Medication Instructions Recorded doxycycline hyclate 100 mg tablet 100 mg PO BID #20 tab 08/09/21 Results & Data (ED) Vital Signs Vital Signs - 24 hr 08/11/21 12:13 08/11/21 12:20 Temperature 36.9 C Temperature Source Temporal Artery Scan Pulse Rate 76 Pulse Rate [Finger] 76 Respiratory Rate 20 18 Respiratory Effort / Characteristics Non-Labored Spontaneous Respiratory Depth Normal Respiratory Pattern Regular Blood Pressure 124/87 Blood Pressure [Left Arm] 160/100 H Blood Pressure Mean 99 Blood Pressure Mean [Left Arm] 120 Blood Pressure Position Sitting Pulse Oximetry 97 96 Oxygen Delivery Method Room Air Sepsis Recent Fever Within 48 Hours No Sepsis New/Unexplained Change in Mental Status No Sepsis Action Taken by Nursing No Action Required Laboratory Data Result diagrams: 08/13/21 03:52 08/13/21 15:54 Lab Results 08/11/21 08/11/21 08/11/21 Range/Units 12:49 12:49 12:49 WBC 5.93 (4.8-10.8) K/uL RBC 4.62 L (4.7-6.1) M/uL Hgb 13.4 L (14.0-18.0) g/dL Hct 36.6 L (42-52) % MCV 79.2 L (80-100) fL MCH 29.0 (25-34) pg MCHC 36.6 H (32-36) g/dL RDW Std Deviation 36.6 (36.4-46.3) fL RDW Coeff of Cathie 12.8 (11.5-14.5) % Plt Count 325 (130-400) K/uL MPV 8.9 (7.4-10.4) fL Immature Gran % (Auto) 1.2 % Neut % (Auto) 60.0 % Lymph % (Auto) 18.7 % [place] % (Auto) 14.7 % Eos % (Auto) 4.9 % Baso % (Auto) 0.5 % Neut # (Auto) 3.56 (1.4-6.5) K/uL Lymph # (Auto) 1.11 L (1.2-3.4) K/uL [place] # (Auto) 0.87 H (0.11-0.59) K/uL Eos # (Auto) 0.29 (0-0.5) K/uL Baso # (Auto) 0.03 (0-0.2) K/uL Immature Gran # (Auto) 0.07 H (0.00-0.02) K/uL Sodium 113 L* (136-145) mmol/L Potassium 4.6 (3.5-5.1) mmol/L Chloride 80 L (98-107) mmol/L Carbon Dioxide 25 (21-32) mmol/L Anion Gap 8 (3-11) BUN 12 (6-23) mg/dl Creatinine 1.45 H (0.6-1.4) mg/dl Est Cr Clr Drug Dosing 53.8 ml/min Est GFR ( Amer) 61.1 ml/min Est GFR (Non-Af Amer) 52.7 ml/min BUN/Creatinine Ratio 8.3 L (10-20) Glucose 115 H (70-99(Fasting)) mg/dl Osmolality 245 L (280-300) mOsm/kg Calcium 10.0 (8.5-10.1) mg/dl Phosphorus 2.8 (2.5-4.9) mg/dl Magnesium 1.1 L (1.7-2.4) mg/dl Total Bilirubin 1.1 H (0.2-1.0) mg/dl Direct Bilirubin 0.2 (0-0.2) mg/dl AST 49 H (13-39) U/L ALT 50 (7-52) U/L Alkaline Phosphatase 115 H (34-104) U/L Total Creatine Kinase 710 H (30-223) U/L Troponin I < 0.03 (0-0.04) ng/ml Total Protein 7.2 (6.0-8.3) gm/dl Albumin 4.3 (3.4-5.0) gm/dl Lipase 23 (11-82) U/L TSH (0.300-4.500) uIu/ml Urine Color Urine Appearance (Clear) Urine pH (4.5-7.5) Ur Specific [place] (1.000-1.030) Urine Protein (Negative) Urine Glucose (UA) (Negative) Urine Ketones (Negative) Urine Blood (Negative) Urine Nitrite (Negative) Urine Bilirubin (Negative) Urine Urobilinogen (Negative) Ur Leukocyte Esterase (Negative) Urine Osmolality (500-800) mOsm/kg Ur Random Sodium mmol/L 08/11/21 08/11/21 08/11/21 Range/Units 12:49 14:40 14:40 WBC (4.8-10.8) K/uL RBC (4.7-6.1) M/uL Hgb (14.0-18.0) g/dL Hct (42-52) % MCV (80-100) fL MCH (25-34) pg MCHC (32-36) g/dL RDW Std Deviation (36.4-46.3) fL RDW Coeff of Cathie (11.5-14.5) % Plt Count (130-400) K/uL MPV (7.4-10.4) fL Immature Gran % (Auto) % Neut % (Auto) % Lymph % (Auto) % [place] % (Auto) % Eos % (Auto) % Baso % (Auto) % Neut # (Auto) (1.4-6.5) K/uL Lymph # (Auto) (1.2-3.4) K/uL [place] # (Auto) (0.11-0.59) K/uL Eos # (Auto) (0-0.5) K/uL Baso # (Auto) (0-0.2) K/uL Immature Gran # (Auto) (0.00-0.02) K/uL Sodium (136-145) mmol/L Potassium (3.5-5.1) mmol/L Chloride (98-107) mmol/L Carbon Dioxide (21-32) mmol/L Anion Gap (3-11) BUN (6-23) mg/dl Creatinine (0.6-1.4) mg/dl Est Cr Clr Drug Dosing ml/min Est GFR ( Amer) ml/min Est GFR (Non-Af Amer) ml/min BUN/Creatinine Ratio (10-20) Glucose (70-99(Fasting)) mg/dl Osmolality (280-300) mOsm/kg Calcium (8.5-10.1) mg/dl Phosphorus (2.5-4.9) mg/dl Magnesium (1.7-2.4) mg/dl Total Bilirubin (0.2-1.0) mg/dl Direct Bilirubin (0-0.2) mg/dl AST (13-39) U/L ALT (7-52) U/L Alkaline Phosphatase (34-104) U/L Total Creatine Kinase (30-223) U/L Troponin I (0-0.04) ng/ml Total Protein (6.0-8.3) gm/dl Albumin (3.4-5.0) gm/dl Lipase (11-82) U/L TSH 1.513 (0.300-4.500) uIu/ml Urine Color Yellow Urine Appearance Clear (Clear) Urine pH 6.5 (4.5-7.5) Ur Specific [place] 1.011 (1.000-1.030) Urine Protein Negative (Negative) Urine Glucose (UA) Negative (Negative) Urine Ketones Negative (Negative) Urine Blood Negative (Negative) Urine Nitrite Negative (Negative) Urine Bilirubin Negative (Negative) Urine Urobilinogen Negative (Negative) Ur Leukocyte Esterase Negative (Negative) Urine Osmolality (500-800) mOsm/kg Ur Random Sodium 72 mmol/L 08/11/21 Range/Units 14:40 WBC (4.8-10.8) K/uL RBC (4.7-6.1) M/uL Hgb (14.0-18.0) g/dL Hct (42-52) % MCV (80-100) fL MCH (25-34) pg MCHC (32-36) g/dL RDW Std Deviation (36.4-46.3) fL RDW Coeff of Cathie (11.5-14.5) % Plt Count (130-400) K/uL MPV (7.4-10.4) fL Immature Gran % (Auto) % Neut % (Auto) % Lymph % (Auto) % [place] % (Auto) % Eos % (Auto) % Baso % (Auto) % Neut # (Auto) (1.4-6.5) K/uL Lymph # (Auto) (1.2-3.4) K/uL [place] # (Auto) (0.11-0.59) K/uL Eos # (Auto) (0-0.5) K/uL Baso # (Auto) (0-0.2) K/uL Immature Gran # (Auto) (0.00-0.02) K/uL Sodium (136-145) mmol/L Potassium (3.5-5.1) mmol/L Chloride (98-107) mmol/L Carbon Dioxide (21-32) mmol/L Anion Gap (3-11) BUN (6-23) mg/dl Creatinine (0.6-1.4) mg/dl Est Cr Clr Drug Dosing ml/min Est GFR ( Amer) ml/min Est GFR (Non-Af Amer) ml/min BUN/Creatinine Ratio (10-20) Glucose (70-99(Fasting)) mg/dl Osmolality (280-300) mOsm/kg Calcium (8.5-10.1) mg/dl Phosphorus (2.5-4.9) mg/dl Magnesium (1.7-2.4) mg/dl Total Bilirubin (0.2-1.0) mg/dl Direct Bilirubin (0-0.2) mg/dl AST (13-39) U/L ALT (7-52) U/L Alkaline Phosphatase (34-104) U/L Total Creatine Kinase (30-223) U/L Troponin I (0-0.04) ng/ml Total Protein (6.0-8.3) gm/dl Albumin (3.4-5.0) gm/dl Lipase (11-82) U/L TSH (0.300-4.500) uIu/ml Urine Color Urine Appearance (Clear) Urine pH (4.5-7.5) Ur Specific [place] (1.000-1.030) Urine Protein (Negative) Urine Glucose (UA) (Negative) Urine Ketones (Negative) Urine Blood (Negative) Urine Nitrite (Negative) Urine Bilirubin (Negative) Urine Urobilinogen (Negative) Ur Leukocyte Esterase (Negative) Urine Osmolality 347 L (500-800) mOsm/kg Ur Random Sodium mmol/L Administered Medications Benzonatate (Benzonatate 100 Mg Capsule) 100 mg PO TID PRN PRN Reason: cough Stop: 09/11/21 20:59 Last Admin: 08/12/21 18:39 Dose: 100 mg Documented by: [id number] Cetirizine HCl (Cetirizine Hcl 10 Mg Tablet) [facility] [place]: 09/11/21 08:59 Last Admin: 08/13/21 08:19 Dose: 10 mg Documented by: [id number] Admin: 08/12/21 07:52 Dose: 10 mg Documented by: [id number] Enoxaparin Sodium (Enoxaparin Inj 40 Mg/0.4 Ml Syr) 40 mg SQ [facility] [place]: 09/11/21 08:59 Last Admin: 08/13/21 08:19 Dose: 40 mg Documented by: [id number] Admin: 08/12/21 07:52 Dose: 40 mg Documented by: [id number] Famotidine (Famotidine 20 Mg Tab) 20 mg PO BID MALAIKA Stop: 09/10/21 20:59 Last Admin: 08/13/21 20:12 Dose: 20 mg Documented by: [id number] Admin: 08/13/21 08:19 Dose: 20 mg Documented by: [id number] Admin: 08/12/21 20:42 Dose: 20 mg Documented by: [id number] Admin: 08/12/21 07:52 Dose: 20 mg Documented by: [id number] Admin: 08/11/21 20:55 Dose: 20 mg Documented by: [id number] Levothyroxine Sodium (Levothyroxine Sodium 50 Mcg Tablet) 50 mcg PO DAILYBB MALAIKA Stop: 09/11/21 06:29 Last Admin: 08/14/21 05:51 Dose: 50 mcg Documented by: [id number] Admin: 08/13/21 05:47 Dose: 50 mcg Documented by: [id number] Admin: 08/12/21 05:36 Dose: 50 mcg Documented by: [id number] Metoprolol Succinate (Metoprolol Succ 50mg Ext Rel Tab) 50 mg PO QPM MALAIKA Stop: 09/10/21 20:59 Last Admin: 08/13/21 20:12 Dose: 50 mg Documented by: [id number] Admin: 08/12/21 21:17 Dose: 50 mg Documented by: [id number] Admin: 08/11/21 20:56 Dose: 50 mg Documented by: [id number] Sodium Chloride (Sodium Chloride 0.65% Na Soln 45 Ml ([place])) 2 sprays NA TID MALAIKA Stop: 09/10/21 18:14 Last Admin: 08/13/21 20:13 Dose: 2 sprays Documented by: [id number] Admin: 08/13/21 15:57 Dose: Not Given Documented by: [id number] Admin: 08/13/21 08:19 Dose: Not Given Documented by: [id number] Admin: 08/12/21 20:43 Dose: 2 sprays Documented by: [id number] Admin: 08/12/21 12:47 Dose: 2 sprays Documented by: [id number] Admin: 08/12/21 07:55 Dose: 2 sprays Documented by: [id number] Admin: 08/11/21 20:57 Dose: 2 sprays Documented by: [id number] Admin: 08/11/21 18:33 Dose: 2 sprays Documented by: [id number] Discontinued Medications Cetirizine HCl (Cetirizine Hcl 10 Mg Tablet) 10 mg PO ONE ONE Stop: 08/11/21 18:01 Last Admin: 08/11/21 18:31 Dose: 10 mg Documented by: [id number] Guaifenesin/Dextromethorphan (Guaifenesin/Dextrom Syrup 100mg/10mg 5ml Udc) 5 ml PO NOW ONE Stop: 08/12/21 21:38 Last Admin: 08/12/21 22:07 Dose: 5 ml Documented by: [id number] Sodium Chloride (Nss 1000ml) 1,000 mls @ 100 mls/hr IV .Q10H MALAIKA Stop: 09/10/21 14:14 Last Infusion: 08/11/21 20:53 Dose: 0 mls/hr Documented by: [id number] Infusion: 08/11/21 17:22 Dose: 75 mls/hr Documented by: [id number] Admin: 08/11/21 14:32 Dose: 125 mls/hr Documented by: [id number] Magnesium Sulfate/Dextrose (Magnesium Sulfate / D5w) 1 gm in 100 mls @ 100 mls/hr IV NOW STA Stop: 08/11/21 15:10 Last Infusion: 08/11/21 15:32 Dose: 0 mls/hr Documented by: [id number] Admin: 08/11/21 14:31 Dose: 100 mls/hr Documented by: [id number] Magnesium Sulfate 6 gm/ Sodium (Chloride) 600 mls @ 100 mls/hr IV 1600 MALAIKA Stop: 08/11/21 22:00 Last Infusion: 08/11/21 23:34 Dose: 0 mls/hr Documented by: [id number] Admin: 08/11/21 16:27 Dose: 100 mls/hr Documented by: [id number] Pantoprazole Sodium 40 mg/ (Syringe) 10 mls @ 5 mls/min IV NOW ONE Stop: 08/11/21 18:31 Last Admin: 08/11/21 20:54 Dose: 5 mls/min Documented by: [id number] Sodium Chloride (Hypertonic Saline 3%) 50 mls @ 300 mls/hr IV .Q10M ONE Stop: 08/11/21 22:09 Last Infusion: 08/11/21 22:14 Dose: 0 mls/hr Documented by: [id number] Cosigned by: [id number] Admin: 08/11/21 22:00 Dose: 300 mls/hr Documented by: [id number] Cosigned by: [id number] Sodium Chloride (Hypertonic Saline 3%) 100 mls @ 600 mls/hr IV .Q10M ONE Stop: 08/12/21 02:57 Last Infusion: 08/12/21 03:39 Dose: 0 mls/hr Documented by: [id number] Cosigned by: [id number] Admin: 08/12/21 03:20 Dose: 600 mls/hr Documented by: [id number] Cosigned by: [id number] Sodium Chloride (Hypertonic Saline 3%) 100 mls @ 30 mls/hr IV .Q3H20M ONE; Protocol Stop: 08/12/21 10:34 Last Infusion: 08/12/21 10:35 Dose: 0 mls/hr Documented by: [id number] Cosigned by: [id number] Admin: 08/12/21 07:15 Dose: 30 mls/hr Documented by: [id number] Cosigned by: [id number] Sodium Chloride (Hypertonic Saline 3%) 500 mls @ 15 mls/hr IV .Q24H MALAIKA; Protocol Stop: 08/12/21 22:29 Last Infusion: 08/12/21 15:30 Dose: 0 mls/hr Documented by: [id number] Admin: 08/12/21 12:47 Dose: 15 mls/hr Documented by: [id number] Cosigned by: [id number] Sodium Chloride (Nss) 250 mls @ 999 mls/hr IV .Q16M ONE Stop: 08/12/21 16:45 Last Infusion: 08/12/21 17:03 Dose: 0 mls/hr Documented by: [id number] Admin: 08/12/21 16:47 Dose: 999 mls/hr Documented by: [id number] Sodium Chloride (Nss) 500 mls @ 125 mls/hr IV .Q4H MALAIKA Stop: 08/12/21 20:29 Last Infusion: 08/12/21 21:36 Dose: 0 mls/hr Documented by: [id number] Infusion: 08/12/21 18:44 Dose: 125 mls/hr Documented by: [id number] Infusion: 08/12/21 18:30 Dose: 0 mls/hr Documented by: [id number] Admin: 08/12/21 17:04 Dose: 125 mls/hr Documented by: [id number] Sodium Chloride (Nss 1000ml) 250 mls @ 999 mls/hr IV .Q16M ONE Stop: 08/12/21 18:38 Last Infusion: 08/12/21 18:45 Dose: 0 mls/hr Documented by: [id number] Admin: 08/12/21 18:30 Dose: 999 mls/hr Documented by: [id number] Sodium Chloride (Nss 1000ml) 250 mls @ 999 mls/hr IV .Q16M ONE Stop: 08/12/21 18:42 Last Admin: 08/12/21 18:29 Dose: Not Given Documented by: [id number] Sodium Chloride (Hypertonic Saline 3%) 500 mls @ 20 mls/hr IV .Q24H MALAIKA; Protocol Stop: 08/13/21 01:29 Last Infusion: 08/13/21 03:16 Dose: 0 mls/hr Documented by: [id number] Cosigned by: [id number] Infusion: 08/13/21 02:16 Dose: 0 mls/hr Documented by: [id number] Cosigned by: [id number] Admin: 08/12/21 21:41 Dose: 20 mls/hr Documented by: [id number] Cosigned by: [id number] Sodium Chloride (Hypertonic Saline 3%) 500 mls @ 15 mls/hr IV .Q24H MALAIKA; Protocol Stop: 08/13/21 06:49 Last Infusion: 08/13/21 05:43 Dose: 0 mls/hr Documented by: [id number] Cosigned by: [id number] Admin: 08/13/21 03:35 Dose: 15 mls/hr Documented by: [id number] Cosigned by: [id number] Sodium Chloride (Hypertonic Saline 3%) 150 mls @ 450 mls/hr IV .Q20M ONE Stop: 08/13/21 09:10 Last Infusion: 08/13/21 11:46 Dose: 0 mls/hr Documented by: [id number] Cosigned by: [id number] Admin: 08/13/21 10:22 Dose: 450 mls/hr Documented by: [id number] Cosigned by: [id number] Lisinopril (Lisinopril 40 Mg Tab) 40 mg PO QPM MALAIKA Stop: 09/10/21 20:59 Last Admin: 08/11/21 20:56 Dose: 40 mg Documented by: [id number] Menthol (Cough Drop (Sugar Free) Raquel 24 Raquel/1 Box) Confirm Administered Dose 24 raquel BUCCAL .STK-MED ONE Stop: 08/12/21 12:37 Last Admin: 08/12/21 12:47 Dose: 24 raquel Documented by: [id number] Miscellaneous (Sodium Chloride 3%--Stop Order) 1 ea N/A ONE ONE Stop: 08/12/21 21:00 Last Admin: 08/12/21 16:48 Dose: Not Given Documented by: [id number] Miscellaneous (Stop Order) 1 ea N/A TODAY@0650 ONE Stop: 08/13/21 06:51 Last Admin: 08/13/21 05:48 Dose: 1 ea Documented by: [id number] Ondansetron HCl (Ondansetron Inj 2 Mg/Ml 2 Ml Vial) 4 mg IV NOW STA Stop: 08/11/21 14:24 Last Admin: 08/11/21 14:31 Dose: 4 mg Documented by: [id number] Discharge Plan Visit Data Chief Complaint: Flank Pain Stated Complaint: KIDNEY PAIN ED Provider: Cornelio Warren Discharge Problem: Hypomagnesemia, Weakness, Hyponatremia Patient Disposition: Admitted As Inpatient Discharge Instructions Interventions: ED Discharge Assessment Last Done: 08/11/21 16:56
[2021-08-11 13:10] LABS: Basophils # (auto) 0.03 K/uL (0-0.2); Basophils % (auto) 0.5 %; Eosinophils # (auto) 0.29 K/uL (0-0.5); Eosinophils % (auto) 4.9 %; Hematocrit (blood only) 36.6 % (42-52); Hemoglobin 13.4 g/dL (14.0-18.0); Immature Granulocytes # (auto) 0.07 K/uL (0.00-0.02); Immature Granulocytes % (auto) 1.2 %; Lymphocytes # (auto) 1.11 K/uL (1.2-3.4); Lymphocytes % (auto) 18.7 %; Mean Corpuscular Hgb Conc 36.6 g/dL (32-36); Mean Corpuscular Volume 79.2 fL (80-100); Mean Platelet Volume 8.9 fL (7.4-10.4); Monocytes # (auto) 0.87 K/uL (0.11-0.59); Monocytes % (auto) 14.7 %; Neutrophils # (auto) 3.56 K/uL (1.4-6.5); Platelet Count 325 K/uL (130-400); RDW Coefficient of Variation 12.8 % (11.5-14.5); RDW Standard Deviation 36.6 fL (36.4-46.3); Red Blood Count 4.62 M/uL (4.7-6.1); White Blood Count 5.93 K/uL (4.8-10.8)
--- NOTE | 2021-08-11 13:40 | XRay Report ---
XR chest 1V portable HISTORY: 56 years-old Male cough generalized weakness acute cough with weakness COMPARISON: Chest radiographs 06/20/2021 TECHNIQUE: Portable AP view of the chest FINDINGS: Cardiomediastinal and hilar silhouettes are within normal limits. No pneumothorax, pleural effusion, airspace consolidation or overt pulmonary edema. Bones of the chest appear grossly intact. IMPRESSION: No acute process. ACT 112: Negative or not required by law. The above report was generated using voice recognition software. It may contain grammatical, syntax o r spelling errors. Electronically signed by: Kristian Alvarenga M.D. 08/11/2021 1:39 PM
[2021-08-11 13:52] LABS: Alanine Aminotransferase 50 U/L (7-52); Albumin Level 4.3 gm/dl (3.4-5.0); Alkaline Phosphatase 115 U/L (34-104); Anion Gap 8 (3-11); Aspartate Aminotransferase 49 U/L (13-39); BUN Creatinine Ratio 8.3 (10-20); Bilirubin Direct 0.2 mg/dl (0-0.2); Bilirubin,Total 1.1 mg/dl (0.2-1.0); Blood Urea Nitrogen 12 mg/dl (6-23); Carbon Dioxide 25 mmol/L (21-32); Chloride 80 mmol/L (98-107); Creatine Kinase 710 U/L (30-223); Creatinine Clr Calc Pharmacy 53.8 ml/min; Est GFR (African American) 61.1 ml/min; Est GFR (Non-African American) 52.7 ml/min; Glucose 115 mg/dl (70-99(Fasting)); Lipase 23 U/L (11-82); Magnesium 1.1 mg/dl (1.7-2.4); Phosphorus 2.8 mg/dl (2.5-4.9); Potassium 4.6 mmol/L (3.5-5.1); Sodium 113 mmol/L (136-145); Total Protein 7.2 gm/dl (6.0-8.3)
[2021-08-11] MEDS ORDERED: MAGNESIUM SULFATE / D5W 1 GM/100 ML BAG IV STA (14:11)
[2021-08-11] MEDS ORDERED: SODIUM CHLORIDE 0.9% 1000ML 1,000 ML IV SCH (14:15)
[2021-08-11 14:22] LABS: Troponin I < 0.03 ng/ml (0-0.04)
[2021-08-11] MEDS ORDERED: ONDANSETRON INJ 2 MG/ML 2 ML VIAL IV STA (14:23)
[2021-08-11 14:48] LABS: Appearance Urine Clear (Clear); Bilirubin Urine Negative (Negative); Blood Urine Negative (Negative); Color Urine Yellow; Glucose Urine UA Negative (Negative); Ketones Urine Negative (Negative); Leukocyte Esterase Urine Negative (Negative); Nitrite Urine Negative (Negative); Protein Urine Negative (Negative); Specific Gravity Urine 1.011 (1.000-1.030); Urobilinogen Urine Negative (Negative); pH Urine 6.5 (4.5-7.5)
--- NOTE | 2021-08-11 15:58 | History & Physical Report ---
Date of Service August 11, 2021 Assessment & Plan (1) Hyponatremia: Plan: On sure of acuteness- however symptoms started on - symptomatic with muscle weakness, fatigue - Currently most consistent with low solute intake, intravascular hypovolemia, with continued spironolactone - Hold Spironolactone - Replace intravascular volume follow NA levels q4- If he remains low following intravascular repletion - 3% saline 100ml and stop other IV fluids- follow q4 - Rate of correction 8meq/24 hours- if he rises quickly DDAVP with hypotonic fluid - FREE WATER RESTRICT 1L- can have other drinks - ACTH and Cortisol in the AM (2) Hypomagnesemia: Plan: Severely low with MG 1.1 likely related to poor PO intake and stool loses - 6 GM Mag in 600ml saline infuse over 6 hours - Once this infused- and NA level as above eval fluid volume status - adjust therapy if needed (3) Elevated CK: Plan: CK 700- no muscle pain - Again likely related to decrease movement, ambulation, or intake - will follow int he morning 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 - Prolactin, ACTH, TSH with T3 in AM - Consider MRI if prolactin abnormal- he has not had recent imaging (5) CHRISTINA (acute kidney injury): Plan: REMEDIOS II likely pre-renal as above - Follow with BMP - replete intravascular volume as above (6) Hypothyroidism: Plan: As above - Continue Synthroid (7) Hyperaldosteronism: Plan: By history reported labs per HPI- with labs decreasing levels- counfounding picture - Labs as above - Appreciate Nephrology consultation - Endocrine outpatient consult pending- consider in patient consultation when all labs are available (8) Weakness: Plan: Likely secondary to Hyponatremia and Hypomag - Replete - Mag in AM - NA q4 (9) Vomiting and diarrhea: Plan: Acute on chronic- has not improved since having COVID - Mesenteric Panniculitis noted on CT scan when admitted for COVID - no confirmatory biopsy- could consider anti-inflammatories if persists or confirmatory biopsy - Re-image if appropriate - Stool samples at time during COVID admission was negative (10) COVID-19: Plan: HX of recent in Jun 22- remains with PND, Fatigue, diarrhea as per HPI - Repeat COVID test: NEGATIVE (11) Sinusitis: Plan: Chronic sinusitis- patient states that this is somewhat seasonal - clear- without sinus pressure, fevers, or lymphadenopathy - Zyrtec - Saline nasal spray - following AM labs would transition to Flonase if appropriate History of Present Illness Primary Care Provider: NAYELY Klein 56 YOM with past medical history of: Primary Hypopituitary as child requiring, GH up until age 10, HTN with workup for hyperaldosteronism (on spironolactone of 100mg), Hypokalemia, COVID in Jun, previous tobacco user, diarrhea. Patient comes to the hospital today for 4 day history of increase in fatigue, muscle cramps, vomiting, and occasional diarrhea associated with decrease in food and water intake. He has just felt like laying on the couch since that time and has not been up and ambulating much. The patient continues to have persistent nasal drainage that has been ongoing since June- which remains clear but is draining down the back of his throat, making him have coughing fits at times severe enough to where he has emesis. He was placed on Doxycycline by his PCP through virtual visit. This has occurred 2-3 times over the past 24 hours. He sips on water to assist him in getting the drainage down to back of throat. He tried to have some tea and water this morning as well as applesauce, and he did have emesis. He has continued with his spironolactone as well and reports that his urine is clear. His nausea and vomiting are not associated with any abdominal pain and is mostly yellow in nature. His diarrhea is periodic with normal BM in between, but when they do occur they are usually large and soft. No blood or mucous in the stools and again no abdominal pain. In the EMD the patient had routine labs performed to include BMP, CBC, MG, and PO4. Notably his NA level returned at 113 and Magnesium of 1.1- serum osmo and urine osmo were sent at request. These have returned with Serum osmo at 245 and Urine Osmo of 347- which would be consistent with decrease solute intake and likely aggravated by his diuretic use and his COOK MORNING is increased to 1.45 (1.15). His mucous membranes are dry on exam as well. He has received 1Liter of saline in the ED and is currently with 0.9% saline infusing at 125ml/hour. Patient will be admitted, Free water restrict, replace magnesium with 6GM in 600ml bag of 0.9% saline and run that over 6-8 hours as well. Follow his BMP with goal of NA correction 8ml/24 hour period. For his primary aldosteronism, and his hypopit history- he is being followed by nephrology and is pending a Endocrinology consultation. He had his Spironolactone increased in July which has helped his BP control. He has not had Cortiosol testing that I am able to find. TSH is pending as well as free T 3. Through review nephrology note notes a previous evaluation of aldosterone level of 23 with renin level of 0.09---and repeat done in 07/02/21 with aldosterone level of 6 and Plasma Renin Activity of 0.23 (Lab results- scanned lab reports), which is a little confounding. Will consult Nephrology to follow along, will add on other endocrine labs for morning to assist with following. COVID TEST: Allergies Allergy/AdvReac Type Severity Reaction Status Date / Time Penicillins Allergy Mild Unknown Unverified 08/11/21 15:28 Home Medications Medication Instructions Recorded Confirmed Type amlodipine 5 mg tablet 5 mg PO HS 06/20/21 08/11/21 History lisinopril 40 mg tablet 40 mg PO HS 06/20/21 08/11/21 History metoprolol succinate 50 mg 50 mg PO HS 06/20/21 08/11/21 History tablet,extended release 24 hr doxycycline hyclate 100 mg tablet 100 mg PO BID #20 tab 08/09/21 08/11/21 Rx atorvastatin 40 mg tablet 40 mg PO HS 08/11/21 08/11/21 History levothyroxine 50 mcg tablet 50 mcg PO DAILYBB 08/11/21 08/11/21 History potassium chloride 20 mEq 40 meq PO HS 08/11/21 08/11/21 History tablet,extended release(part/cryst) (Faustino Richard) spironolactone 100 mg tablet 100 mg PO HS 08/11/21 08/11/21 History Past Med/Surg History Medical History Arthritis Hyperaldosteronism Hypothyroidism Mesenteric panniculitis Primary hypopituitarism Recurrent sinus infections Family History Father Myocardial infarction Denies family history of Ovarian cancer Prostate cancer Breast cancer Colorectal cancer Social History (Updated 08/11/21 @ 15:54 by NAYELY Briceno) Smoking Status: Former smoker Tobacco Type: Smokeless Tobacco (Dip or Chew) Age Started Using Tobacco: 19; Age Quit Using Tobacco: 28; packs per day: 0.5; Years Smoked: 9; Cigarettes Per Day: 10; Number of Years Since Quit: 27; Second Hand Exposure: No; Do You Dip or Chew Tobacco: No (quit 06/22); Hx Alcohol Use: No Hx Substance Use: No Preferred Language: Tamazight Communication Ability: Effective Visual Impairment: No Limitations Hearing Ability: Normal Staff Physical Therapy Assistant Required: No Beliefs That Will Affect Care: None marital status: Current Living Situation: Spouse Current Living Situation Comment: Lives with [facility] current occupational status: employed Other Information That Helps Us Care for You: No Feels Safe at Home: Yes Safety Concerns: Feels Safe At This Time Childhood Exposure to Second-Hand Smoke: Yes Dental Care, Regularly: Yes Physical Activity Frequency: 3-4 Times per Week Assistive Devices: Cane Review of Systems Review of Systems: REVIEW OF SYSTEMS: Constitutional: No fever, sweats or chills Eyes: No diplopia, no worsening or blurred vision ENT: (+) sinus congestion with constant PND, normal hearing, no trouble swallowing Respiratory: (+) cough, sputum, No dyspnea at rest or on exertion Cardiovascular: No chest pain, tightness or palpitations Abdomen: (+) diarrhea, No pain, nausea, vomiting, Musculoskeletal: (+) weakness with muscle cramps, No joint pain, calf pain Neurologic: No weakness, numbness/tingling, or balance problems Psychiatric: No anxiety or depression Skin: No rash or itch Physical Exam Physical Exam: PHYSICAL EXAM: General: awake, alert, no apparent distress Head: Normocephalic, atraumatic ENT: PERRL, EOMI, no pharyngeal exudate, mucous membranes dry, clear drainage expectorated, no cobblestoning of soft palat, without sinus pressure with palpation, and no lymphadenopathy Neuro: AAO x 3, speech clear and appropriate, strength intact bilaterally 5/5, sensation intact and equal all extremities and dermatomes, no pronator drift Chest: equal rise and fall of the chest, no accessory muscle use, no heaves or thrills, Clear to auscultation, on room air, Cardiac: Regular rate and rhythm, telemetry reviewed- NSR, skin warm dry, cap refill <3 seconds, peripheral pulses +2 no JVD, no murmur, no edema GI: NABS x 4 quadrants, soft, nontender to palpation, no rebound, guarding or tenderness : Spontaneously voiding, no pain, no CVA tenderness, Extremities: Normal inspection, no peripheral edema or erythema, calfs nontender to palpation Psych: Normal mood and affect Skin: no rash or erythema Results & Data Results & Data ([facility]) Vital Signs (Past 12 Hours) Vital Signs Temp Pulse Pulse Resp BP BP Pulse Ox 08/11/21 14:13 98 H 16 133/95 95 08/11/21 12:20 36.9 C 76 18 124/87 96 08/11/21 12:13 76 20 160/100 H 97 Laboratory Results Abnormal lab results 08/11/21 08/11/21 08/11/21 Range/Units 12:49 12:49 12:49 RBC 4.62 L (4.7-6.1) M/uL Hgb 13.4 L (14.0-18.0) g/dL Hct 36.6 L (42-52) % MCV 79.2 L (80-100) fL MCHC 36.6 H (32-36) g/dL Lymph # (Auto) 1.11 L (1.2-3.4) K/uL [place] # (Auto) 0.87 H (0.11-0.59) K/uL Immature Gran # (Auto) 0.07 H (0.00-0.02) K/uL Sodium 113 L* (136-145) mmol/L Chloride 80 L (98-107) mmol/L Creatinine 1.45 H (0.6-1.4) mg/dl BUN/Creatinine Ratio 8.3 L (10-20) Glucose 115 H (70-99(Fasting)) mg/dl Osmolality 245 L (280-300) mOsm/kg Magnesium 1.1 L (1.7-2.4) mg/dl Total Bilirubin 1.1 H (0.2-1.0) mg/dl AST 49 H (13-39) U/L Alkaline Phosphatase 115 H (34-104) U/L Total Creatine Kinase 710 H (30-223) U/L Urine Osmolality (500-800) mOsm/kg 08/11/21 Range/Units 14:40 RBC (4.7-6.1) M/uL Hgb (14.0-18.0) g/dL Hct (42-52) % MCV (80-100) fL MCHC (32-36) g/dL Lymph # (Auto) (1.2-3.4) K/uL [place] # (Auto) (0.11-0.59) K/uL Immature Gran # (Auto) (0.00-0.02) K/uL Sodium (136-145) mmol/L Chloride (98-107) mmol/L Creatinine (0.6-1.4) mg/dl BUN/Creatinine Ratio (10-20) Glucose (70-99(Fasting)) mg/dl Osmolality (280-300) mOsm/kg Magnesium (1.7-2.4) mg/dl Total Bilirubin (0.2-1.0) mg/dl AST (13-39) U/L Alkaline Phosphatase (34-104) U/L Total Creatine Kinase (30-223) U/L Urine Osmolality 347 L (500-800) mOsm/kg Diagnostic Findings Chest X-Ray 08/11/21 13:00 XR chest 1V portable HISTORY: 56 years-old Male cough generalized weakness acute cough with weakness COMPARISON: Chest radiographs 06/20/2021 TECHNIQUE: Portable AP view of the chest FINDINGS: Cardiomediastinal and hilar silhouettes are within normal limits. No pneumothorax, pleural effusion, airspace consolidation or overt pulmonary edema. Bones of the chest appear grossly intact. IMPRESSION: No acute process. ACT 112: Negative or not required by law. The above report was generated using voice recognition software. It may contain grammatical, syntax or spelling errors. Electronically signed by: Kristian Alvarenga M.D. 08/11/2021 1:39 PM Medications Administered Sodium Chloride (Nss 1000ml) 1,000 mls @ 125 mls/hr IV .Q8H MALAIKA Stop: 09/10/21 14:14 Last Admin: 08/11/21 14:32 Dose: 125 mls/hr Documented by: [id number] Discontinued Medications Magnesium Sulfate/Dextrose (Magnesium Sulfate / D5w) 1 gm in 100 mls @ 100 mls/hr IV NOW STA Stop: 08/11/21 15:10 Last Infusion: 08/11/21 15:32 Dose: 0 mls/hr Documented by: [id number] Admin: 08/11/21 14:31 Dose: 100 mls/hr Documented by: [id number] Ondansetron HCl (Ondansetron Inj 2 Mg/Ml 2 Ml Vial) 4 mg IV NOW STA Stop: 08/11/21 14:24 Last Admin: 08/11/21 14:31 Dose: 4 mg Documented by: [id number] ECG Additional Comments: Normal sinus rhythm Left axis deviation Incomplete right bundle branch block Nonspecific T wave abnormality Abnormal ECG When compared with ECG of 20-JUN-2021 12:22, No significant change was found Code Status & VTE Plan Code Status CODE: FULL VTE: SCDS, Lovenox 40mg sq daily, ambulation when able VTE Prophylaxis Plan VTE Prophylaxis will be ordered: Yes Supervising Physician Co-Signing Physician Notes Patient seen and examined, chart reviewed, case discussed with Gaudencio Foreman and I agree with the assessment and plan as above except as otherwise noted General: A&Ox3. NAD. Cooperative. HEENT: Atraumatic, normocephalic. Pulm: CTAB A&P. -wheezes, -rales, -rhonchi. Symmetrical chest rise. No increase work of breathing. No respiratory distress. Cardiac: RRR, -mrg. Radial pulses intact and symmetrical. Abdominal: Nontender, nondistended, soft. BS present. Ext: Warm, dry, intact, atraumatic. 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 All labs and images reviewed Subacute/chronic hyponatremia. Pt with hx of primary hyperaldosteronism on spironolactone, although recent jorge luis level not consistent with this, by hx with elevated level in the past but not available in labs. Pt fatigued, with BS intact and mentating normally. Vision intact, no focal neuro deficits. BMP Q2- Q4H. Pt is hypovolemic currently with volume rescusicitation. Serum osm/Urine osm low. Will continue to rescuscitate, once near euvolemic if sodium remains low/unchanged +3% saline ~100cc goal sodium tomorrow ~120 (no more than 8meQ/24hr). If brisk diuresis with rapid upshift --> sodium desmopressin clamp + D5. PG Care Time/CCT Total # of Minutes Spent Total Time Spent with Patient: Total time spent is greater than 50% in coordination of care (as documented) at patient's floor/unit and/or counseling patient: Coding Level of Care Code 06273 Initial Inpt Care Lvl 3 Diagnoses Hyponatremia E87.1 Primary hypopituitarism E23.0 Hypothyroidism E03.9 Hyperaldosteronism E26.9 Weakness R53.1 Vomiting and diarrhea R11.10; R19.7 COVID-19 U07.1 Sinusitis J32.9 Hypomagnesemia E83.42 Elevated CK R74.8 CHRISTINA (acute kidney injury) N17.9
[2021-08-11] MEDS ORDERED: SODIUM CHLORIDE 0.9% IV SCH (16:00)
[2021-08-11] MEDS ORDERED: MAGNESIUM SULFATE IV SCH (16:00)
[2021-08-11] MEDS ORDERED: CETIRIZINE HCL 10 MG TABLET PO ONE (18:00)
[2021-08-11] MEDS ORDERED: PANTOprazole 40 MG in SYRINGE 0 ML IV ONE (18:30)
[2021-08-11] MEDS: SODIUM CHLORIDE 0.65% NA SOLN 45 ML (OCEAN) SCH ×2 (18:33→20:57)
[2021-08-11 18:57] LABS: Calcium 9.4 mg/dl (8.5-10.1); Creatinine Clr Calc Pharmacy 53.7 ml/min; Est GFR (African American) 61.1 ml/min; Est GFR (Non-African American) 52.7 ml/min; Potassium 4.3 mmol/L (3.5-5.1)
[2021-08-11] MEDS ORDERED: SODIUM CHLORIDE 3 % 50 ML IV ONE ×2 (20:45→22:00)
[2021-08-11] MEDS: FAMOTIDINE 20 MG TAB PO SCH (20:55)
[2021-08-11] MEDS: METOPROLOL SUCC 50MG EXT REL TAB PO SCH (20:56)
[2021-08-11] MEDS ORDERED: lisinopril 40 MG TAB PO SCH (21:00)
[2021-08-11 23:06] LABS: BUN Creatinine Ratio 8.5 (10-20); Calcium 8.8 mg/dl (8.5-10.1); Creatinine Clr Calc Pharmacy 55.2 ml/min; Est GFR (African American) 63.2 ml/min; Est GFR (Non-African American) 54.5 ml/min; Potassium 4.2 mmol/L (3.5-5.1)
[2021-08-12 02:45] LABS: BUN Creatinine Ratio 8.5 (10-20); Calcium 8.9 mg/dl (8.5-10.1); Creatinine Clr Calc Pharmacy 54.9 ml/min; Est GFR (African American) 62.7 ml/min; Est GFR (Non-African American) 54.1 ml/min; Potassium 4.6 mmol/L (3.5-5.1)
[2021-08-12] MEDS ORDERED: SODIUM CHLORIDE 3 % 100 ML IV ONE (02:48)
--- NOTE | 2021-08-12 02:58 | Communication Note ---
Date of Service: August 12, 2021 Patient admitted for hyponatremia. Initially believed to be caused by hypovolemia/low solute intake/spironolactone use. As such patient received IV fluids for about 5-6 hours with NSS, at which point BMP was rechecked. His sodium level had only increased from 113-114. At this point, patient was considered to be euvolemic and decision was made to give 50 mL bolus of 3% saline. Recheck of BMP 4 hours later continued to show sodium of 114, so decision was made to give additional 100 cc bolus of 3% saline at around 3 AM. Will recheck sodium with a.m. labs. Of note, patient continued to be neurologically intact with appropriate mentation. Only symptom being fatigue/generalized weakness. Resident Activity Tracking Resident Involvement: Resident Care Provided Care Provided: [facility]
[2021-08-12] MEDS: LEVOTHYROXINE SODIUM 50 MCG TABLET PO SCH (05:36)
--- NOTE | 2021-08-12 05:36 | Electrocardiogram Report ---
Test Reason : Blood Pressure : / mmHG Vent. Rate : 086 BPM Atrial Rate : 086 BPM P-R Int : 160 ms QRS Dur : 098 ms QT Int : 384 ms P-R-T Axes : 039 -59 068 degrees QTc Int : 459 ms Poor data quality, interpretation may be adversely affected Normal sinus rhythm Left axis deviation Incomplete right bundle branch block Poor R wave progression, consider anterior OK vs. lead placement vs. LVH Nonspecific T wave abnormality Abnormal ECG When compared with ECG of 20-JUN-2021 12:22, No significant change was found Confirmed by Bryan Mayes ([id number]) on 08/12/2021 5:36:32 AM Referred By: Sammy Roberts Confirmed By:Bryan Mayes
[2021-08-12 05:55] LABS: Basophils # (auto) 0.02 K/uL (0-0.2); Basophils % (auto) 0.3 %; Eosinophils # (auto) 0.27 K/uL (0-0.5); Eosinophils % (auto) 4.1 %; Hematocrit (blood only) 32.3 % (42-52); Hemoglobin 11.8 g/dL (14.0-18.0); Immature Granulocytes # (auto) 0.05 K/uL (0.00-0.02); Immature Granulocytes % (auto) 0.8 %; Lymphocytes # (auto) 1.44 K/uL (1.2-3.4); Lymphocytes % (auto) 22.1 %; Mean Corpuscular Hemoglobin 29.3 pg (25-34); Mean Corpuscular Hgb Conc 36.5 g/dL (32-36); Mean Corpuscular Volume 80.1 fL (80-100); Mean Platelet Volume 8.9 fL (7.4-10.4); Monocytes # (auto) 0.79 K/uL (0.11-0.59); Monocytes % (auto) 12.1 %; Neutrophils # (auto) 3.95 K/uL (1.4-6.5); Neutrophils % (auto) 60.6 %; Platelet Count 253 K/uL (130-400); RDW Coefficient of Variation 13.1 % (11.5-14.5); RDW Standard Deviation 38.1 fL (36.4-46.3); Red Blood Count 4.03 M/uL (4.7-6.1); White Blood Count 6.52 K/uL (4.8-10.8)
[2021-08-12 06:34] LABS: BUN Creatinine Ratio 8.8 (10-20); Calcium 8.7 mg/dl (8.5-10.1); Creatinine Clr Calc Pharmacy 56.9 ml/min; Est GFR (African American) 65.4 ml/min; Est GFR (Non-African American) 56.5 ml/min; Magnesium 2.8 mg/dl (1.7-2.4); Potassium 4.2 mmol/L (3.5-5.1)
[2021-08-12] MEDS ORDERED: Nursing to Pharmacy Communication STA ×2 (07:04→16:13)
[2021-08-12] MEDS ORDERED: SODIUM CHLORIDE 3 % 100mL BOLUS (from 3% 500mL bag) IV ONE (07:15)
--- NOTE | 2021-08-12 07:31 | Hospitalist Progress Note ---
Date of Service August 12, 2021 Assessment & Plan (1) Hyponatremia: Plan: Subacute/chronic, last sodium CHIEF OF ANESTHESIOLOGY 06/22/2021 was 130, admit @ 113 Weakness, fatigue for 3-4 days prior to admission - On admission volume and solute depleted, worsened with spironolactone Serum osmoles and urine osmoles low @ admit Initially volume resuscitated, with return of diuresis morning of 08/12 Total body sodium deficit approximately 685mEQ 50 cc followed by 100 cc of 3% saline given overnight following fluid resuscitation Sodium 115 this morning. Goal slow rise to approximately 122 tomorrow morning - 3% NaCL @ 30cc/hr 100cc infused, slow rise in Na to 117. additional 15cc/hr now discontinued. Nephrology consulted. 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 - Prolactin, ACTH pending - TSH 1.002 - Consider MRI if prolactin abnormal- he has not had recent imaging - No bitemporal hemianopsia on exam (5) CHRISTINA (acute kidney injury): Plan: CHRISTINA likely pre-renal as above - Cr normalized 08/12 morning, uptrending to 1.91 in afternoon BMP daily Continue fluids and electrolyte management as above Lisinopril temporarily held, blood pressure 108/65 (6) Hypothyroidism: Plan: As above - Continue Synthroid (7) Hyperaldosteronism: Plan: By history reported labs per HPI- with labs decreasing levels- counfounding picture - Labs as above - Appreciate Nephrology consultation - Endocrine outpatient consult pending as above Hold spironolactone for now (8) Weakness: Plan: - Suspect 2/2 hyponatremia, correct as above then PT/OT (9) Vomiting and diarrhea: Plan: Acute on chronic- has not improved since having COVID - Mesenteric Panniculitis noted on CT scan when admitted for COVID - no confirmatory biopsy- could consider anti-inflammatories if persists or confirmatory biopsy - Re-image if appropriate - Stool samples at time during COVID admission was negative (10) COVID-19: Plan: HX of recent in Jun 22- remains with PND, Fatigue, diarrhea as per HPI - Repeat COVID test: NEGATIVE (11) Sinusitis: Plan: Chronic sinusitis- patient states that this is somewhat seasonal - clear- without sinus pressure, fevers, or lymphadenopathy - Zyrtec - Saline nasal spray - following AM labs would transition to Flonase if appropriate Admission and Anticipated Discharge Date Admission Date: August 11, 2021 Subjective Seen at the bedside this morning. He feels improved from yesterday, not yet normal but feels his energy is better. No BM this morning, has been starting to urinate a little bit, 1 unmeasured and 1 100 cc void. All voids not being measured. Denies nausea/vomiting/diarrhea/constipation, appetite okay today Metallic taste in mouth has improved. Continues to have some sinus congestion/postnasal drip similar to prior. Denies cramps. No headache. No vision change. Review of Systems Review of Systems: All systems reviewed & are unremarkable except as noted in Subjective Physical Exam Physical Exam: General: A&Ox3. NAD. Cooperative. HEENT: Atraumatic, normocephalic. Visual acuity grossly intact, hearing grossly intact, pupils equal and reactive to light Pulm: CTAB A&P. -wheezes, -rales, -rhonchi. Symmetrical chest rise. No increase in work of breathing. No respiratory distress. Cardiac: RRR, -mrg. Radial pulses intact and symmetrical. Abdominal: Nontender, nondistended, soft. BS present. Extremities: Moves all extremities equally, sensation grossly intact to soft touch in hands and feet Results & Data Results & Data ([facility]) Vital Signs (Past 12 Hours) Vital Signs Temp Pulse Pulse Resp BP Pulse Ox 08/12/21 03:45 36.9 C 69 18 121/75 93 08/11/21 22:18 71 08/11/21 20:20 97 H PG Care Time/CCT Total # of Minutes Spent Total Time Spent with Patient: Total time spent is greater than 50% in coordination of care (as documented) at patient's floor/unit and/or counseling patient: Coding Level of Care Code 16937 Subseq Hosp Care Lvl 3 Diagnoses Hyponatremia E87.1 Hypomagnesemia E83.42 Elevated CK R74.8 Primary hypopituitarism E23.0 CHRISTINA (acute kidney injury) N17.9 Hypothyroidism E03.9 Hyperaldosteronism E26.9 Weakness R53.1 Vomiting and diarrhea R11.10; R19.7 COVID-19 U07.1 Sinusitis J32.9
[2021-08-12] MEDS: ENOXAPARIN INJ 40 MG/0.4 ML SYR SQ SCH (07:52)
[2021-08-12] MEDS: FAMOTIDINE 20 MG TAB PO SCH ×2 (07:52→20:42)
[2021-08-12] MEDS: CETIRIZINE HCL 10 MG TABLET PO SCH (07:52)
[2021-08-12] MEDS: SODIUM CHLORIDE 0.65% NA SOLN 45 ML (OCEAN) SCH ×3 (07:55→20:43)
[2021-08-12 08:19] LABS: Cortisol AM 8.27 mcg/dl (6.2-22.6)
[2021-08-12 08:22] LABS: T3 Free 2.17 pg/ml (2.3-4.2)
[2021-08-12 08:28] LABS: Prolactin 11.44 ng/ml
[2021-08-12 11:50] LABS: BUN Creatinine Ratio 6.8 (10-20); Calcium 8.7 mg/dl (8.5-10.1); Creatinine Clr Calc Pharmacy 40.8 ml/min; Est GFR (African American) 43.8 ml/min; Est GFR (Non-African American) 37.8 ml/min; Potassium 4.5 mmol/L (3.5-5.1)
[2021-08-12] MEDS ORDERED: SODIUM CHLORIDE 3 % 500 ML IV SCH ×3 (12:30→21:30)
[2021-08-12] MEDS ORDERED: COUGH DROP (SUGAR FREE) LOZ 24 LOZ/1 BOX BUCCAL ONE (12:36)
--- NOTE | 2021-08-12 12:42 | Nephrology Consultation ---
Date of Consultation August 12, 2021 Assessment & Plan (1) Hyponatremia: (2) Hypomagnesemia: (3) Hyperaldosteronism: (4) CHRISTINA (acute kidney injury): 56-year-old male admitted with acute hyponatremia and generalized weakness with history of COVID-19 infection CHRISTINA in June with persistent symptom of mainly weakness and low energy. Although initially clinically looks volume depleted but sodium did not improve after 2 L of IV fluid. Appetite and p.o. intake has been normal. Lisinopril was restarted on admission. Potassium has been normal. Magnesium improved. a.m. cortisol and prolactin was normal. -- Discontinue 3% saline and continue to monitor serum sodium, aim for correction up to 122 by tomorrow morning lab. -- Okay to continue on lisinopril -- keep normal dietary salt intake, free water restriction to less than 1.5 L per day -- Okay to hold spironolactone as blood pressure well controlled and potassium normal. Will follow Thank you for allowing me to participate in your patient's care. It was a pleasure to see Ever. History of Present Illness Reason for Consultation: Acute hyponatremia. Attending Physician: Obed Oates MD History of Present Illness Ever Woodall is a 56-year-old gentlemen with past medical history significant for hypertension, history of hyperaldosteronism, admitted to the hospital with acute hyponatremia and generalized weakness. Nephrology consult was requested for management of hyponatremia. EMR records are reviewed in detail during patient's visit. Ever was diagnosed with COVID-19 pneumonia in June when he was admitted to the hospital. Hospital course was complicated by CHRISTINA, Cr 2.3 and mild hyponatremia, serum sodium was 128-130 with no prior history of hyponatremia. Since discharge renal function has been slowly improving, creatinine recently around 1.5. However, since his diagnosis of COVID he has been having generalized weakness and fatigue which recently worsened. Reports normal appetite and p.o. intake at home. On admission yesterday serum sodium was 113, urine osmolality was 347. Was not on thiazide diuretics. Was not taking NSAID regularly. He reports occasional nausea but no vomiting. Had few episodes of diarrhea infrequently. On admission his blood pressure was normal. Potassium was normal. He was on Lisinopril which was stopped 2 weeks ago as his blood pressure was in fact running relatively low. On admission he was thought to be volume depleted, received 2 L of normal saline however serum sodium stayed around 114-115 until this morning. Overnight he received multiple boluses of 3% normal saline, last 3% saline bolus was this morning. Serum sodium finally started to improve and last sodium was 117. Magnesium was low at 1.1 but potassium normal. Nonsmoker. No known family history of CKD or ESRD. He was diagnosed with hyperaldosteronism over last few months after he was found to have elevated aldosterone to renin ratio. Adrenal gland imaging was otherwise unremarkable. He was referred for endocrinology evaluation, currently pending. Renal vein sampling was recommended but he deferred at this time. However, looks like his blood pressure improved significantly and in fact recently was low and he was taken off of Lisinopril. Potassium has been normal. There was question of hypopituitarism as a child. Has hypothyroidism, on levothyroxine, recent TSH was above 3. He feels slightly better today, less fatigued. Appetite has been decent. He was mainly bothered by cough with postnasal drip. Lab this morning again showed CHRISTINA with creatinine 1.8, sodium improved to 117. magnesium improved to 2.8. Allergies Allergy/AdvReac Type Severity Reaction Status Date / Time Penicillins Allergy Mild Unknown Unverified 08/11/21 15:28 Home Medications Medication Instructions Recorded Confirmed Type amlodipine 5 mg tablet 5 mg PO HS 06/20/21 08/11/21 History lisinopril 40 mg tablet 40 mg PO HS 06/20/21 08/11/21 History metoprolol succinate 50 mg 50 mg PO HS 06/20/21 08/11/21 History tablet,extended release 24 hr doxycycline hyclate 100 mg tablet 100 mg PO BID #20 tab 08/09/21 08/11/21 Rx atorvastatin 40 mg tablet 40 mg PO HS 08/11/21 08/11/21 History levothyroxine 50 mcg tablet 50 mcg PO DAILYBB 08/11/21 08/11/21 History potassium chloride 20 mEq 40 meq PO HS 08/11/21 08/11/21 History tablet,extended release(part/cryst) (Klor-Con M) spironolactone 100 mg tablet 100 mg PO HS 08/11/21 08/11/21 History Patient History Medical History Arthritis Hyperaldosteronism Hypothyroidism Mesenteric panniculitis Primary hypopituitarism Recurrent sinus infections Family History Father Myocardial infarction Denies family history of Ovarian cancer Prostate cancer Breast cancer Colorectal cancer Social History (Updated 08/11/21 @ 15:54 by NAYELY Briceno) Smoking Status: Former smoker Tobacco Type: Smokeless Tobacco (Dip or Chew) Age Started Using Tobacco: 19; Age Quit Using Tobacco: 28; packs per day: 0.5; Years Smoked: 9; Cigarettes Per Day: 10; Number of Years Since Quit: 27; Second Hand Exposure: No; Do You Dip or Chew Tobacco: No (quit 06/22); Hx Alcohol Use: No Hx Substance Use: No Preferred Language: Estonian Communication Ability: Effective Visual Impairment: No Limitations Hearing Ability: Normal Heel Builder Required: No Beliefs That Will Affect Care: None marital status: Current Living Situation: Spouse Current Living Situation Comment: Lives with [facility] current occupational status: employed Other Information That Helps Us Care for You: No Feels Safe at Home: Yes Safety Concerns: Feels Safe At This Time Childhood Exposure to Second-Hand Smoke: Yes Dental Care, Regularly: Yes Physical Activity Frequency: 3-4 Times per Week Assistive Devices: Glasses Review of Systems Review of Systems: detailed review of system was otherwise unremarkable except mentioned above. Physical Exam Constitutional: WD/WN, vitals as above no acute distress Eyes: + anicteric sclerae Neck: normal visual inspection Respiratory: no respiratory distress and no cough Auscultation: lungs clear to auscultation bilaterally Cardiovascular: Rate/Rhythm: regular rate and regular rhythm Heart Sounds: normal S1 and normal S2 Extremities: no edema Gastrointestinal (Abdomen): Inspection/Auscultation: abdomen normal to inspection and normal bowel sounds Percussion/Palpation: abdomen soft; abdomen nontender Musculoskeletal: Extremities: extremities normal to inspection Skin: no rashes Neurologic: no focal motor deficits and not confused Psychiatric: Orientation: alert and oriented x 3 Affect: euthymic affect Results & Data ([facility]) Vital Signs (Past 12 Hours) Vital Signs Temp Pulse Pulse Resp BP BP Pulse Ox 08/12/21 11:00 36.9 C 67 18 108/65 95 08/12/21 09:05 63 03/14/22 07:25 37.2 C 47 L 21 110/68 93 08/12/21 03:45 36.9 C 69 18 121/75 93 PG Care Time/CCT Total # of Minutes Spent Total Time Spent with Patient: Total time spent is greater than 50% in coordination of care (as documented) at patient's floor/unit and/or counseling patient: Coding Level of Care Code 62873 Inpt Consult Level 4 Diagnoses Hyponatremia E87.1 Hypomagnesemia E83.42 Hyperaldosteronism E26.9 CHRISTINA (acute kidney injury) N17.9
[2021-08-12 16:00] LABS: BUN Creatinine Ratio 7.4 (10-20); Calcium 8.5 mg/dl (8.5-10.1); Creatinine Clr Calc Pharmacy 38.2 ml/min; Est GFR (African American) 40.4 ml/min; Est GFR (Non-African American) 34.9 ml/min; Potassium 4.6 mmol/L (3.5-5.1)
[2021-08-12] MEDS ORDERED: SODIUM CHLORIDE 0.9% 250 ML IV ONE (16:30)
[2021-08-12] MEDS ORDERED: SODIUM CHLORIDE 0.9% 500 ML IV SCH (16:30)
[2021-08-12 18:02] LABS: BUN Creatinine Ratio 7.5 (10-20); Calcium 8.3 mg/dl (8.5-10.1); Creatinine Clr Calc Pharmacy 39.1 ml/min; Est GFR (African American) 41.7 ml/min; Est GFR (Non-African American) 35.9 ml/min; Potassium 4.4 mmol/L (3.5-5.1)
[2021-08-12] MEDS ORDERED: SODIUM CHLORIDE 0.9% 1000ML 250 ML IV ONE ×2 (18:23→18:27)
[2021-08-12] MEDS ORDERED: BENZONATATE 100 MG CAPSULE PO PRN (18:32)
[2021-08-12] MEDS ORDERED: [UNRECOGNIZED DRUG - REMARK] ONE ×2 (20:59→22:29)
[2021-08-12 21:13] LABS: BUN Creatinine Ratio 8.1 (10-20); Calcium 8.3 mg/dl (8.5-10.1); Creatinine Clr Calc Pharmacy 41.9 ml/min; Est GFR (African American) 45.2 ml/min; Potassium 4.4 mmol/L (3.5-5.1)
[2021-08-12] MEDS: METOPROLOL SUCC 50MG EXT REL TAB PO SCH (21:17)
[2021-08-12] MEDS ORDERED: guaiFENesin/DEXTROM SYRUP 100MG/10MG 5ML UDC PO ONE (21:37)
[2021-08-13 01:49] LABS: BUN Creatinine Ratio 8.6 (10-20); Creatinine Clr Calc Pharmacy 44.5 ml/min; Est GFR (African American) 48.7 ml/min; Potassium 4.3 mmol/L (3.5-5.1)
[2021-08-13] MEDS ORDERED: SODIUM CHLORIDE 3 % 500 ML IV SCH (03:30)
[2021-08-13 04:08] LABS: Basophils # (auto) 0.01 K/uL (0-0.2); Basophils % (auto) 0.3 %; Eosinophils # (auto) 0.18 K/uL (0-0.5); Eosinophils % (auto) 4.9 %; Hematocrit (blood only) 31.4 % (42-52); Hemoglobin 11.5 g/dL (14.0-18.0); Immature Granulocytes # (auto) 0.04 K/uL (0.00-0.02); Immature Granulocytes % (auto) 1.1 %; Lymphocytes # (auto) 1.05 K/uL (1.2-3.4); Lymphocytes % (auto) 28.7 %; Mean Corpuscular Hemoglobin 29.7 pg (25-34); Mean Corpuscular Hgb Conc 36.6 g/dL (32-36); Mean Corpuscular Volume 81.1 fL (80-100); Mean Platelet Volume 8.8 fL (7.4-10.4); Monocytes % (auto) 19.1 %; Neutrophils # (auto) 1.68 K/uL (1.4-6.5); Neutrophils % (auto) 45.9 %; Platelet Count 204 K/uL (130-400); RDW Coefficient of Variation 13.2 % (11.5-14.5); RDW Standard Deviation 39.4 fL (36.4-46.3); Red Blood Count 3.87 M/uL (4.7-6.1); White Blood Count 3.66 K/uL (4.8-10.8)
[2021-08-13 05:30] LABS: BUN Creatinine Ratio 8.9 (10-20); Calcium 8.3 mg/dl (8.5-10.1); Creatinine Clr Calc Pharmacy 46.4 ml/min; Est GFR (African American) 51.1 ml/min; Est GFR (Non-African American) 44.1 ml/min; Magnesium 2.1 mg/dl (1.7-2.4); Potassium 4.4 mmol/L (3.5-5.1)
[2021-08-13] MEDS: LEVOTHYROXINE SODIUM 50 MCG TABLET PO SCH (05:47)
--- NOTE | 2021-08-13 07:42 | Hospitalist Progress Note ---
Date of Service August 13, 2021 Assessment & Plan (1) Hyponatremia: Plan: Subacute/chronic, last sodium [facility] 06/22/2021 was 130, admit @ 113 Weakness, fatigue for 3-4 days prior to admission - On admission volume and solute depleted, worsened with spironolactone Serum osmoles and urine osmoles low @ admit Initially volume resuscitated, with return of diuresis morning of 08/12 Nephrology consulted. Appreciate recs, stopping hypertonic saline, fluid restrict (2) Hypomagnesemia: Plan: replete (3) Elevated CK: Plan: seems stable around 700 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 - Prolactin, ACTH pending - TSH 1.002 - No bitemporal hemianopsia on exam (5) CHRISTINA (acute kidney injury): Plan: CHRISTINA likely pre-renal as above - Cr normalized Lisinopril temporarily held, blood pressure 108/65 (6) Hypothyroidism: Plan: As above - Continue Synthroid (7) Hyperaldosteronism: Plan: By history reported labs per HPI- with labs decreasing levels- counfounding picture - Labs as above - Appreciate Nephrology consultation - Endocrine outpatient consult pending as above Hold spironolactone for now (8) Weakness: Plan: - Suspect 2/2 hyponatremia, correct as above then PT/OT (9) Vomiting and diarrhea: Plan: Acute on chronic- has not improved since having COVID - Mesenteric Panniculitis noted on CT scan when admitted for COVID - no confirmatory biopsy- could consider anti-inflammatories if persists or confirmatory biopsy - Re-image if appropriate - Stool samples at time during COVID admission was negative (10) COVID-19: Plan: HX of recent in Jun 22- remains with PND, Fatigue, diarrhea as per HPI - Repeat COVID test: NEGATIVE (11) Sinusitis: Plan: Chronic sinusitis- patient states that this is somewhat seasonal - clear- without sinus pressure, fevers, or lymphadenopathy - Zyrtec - Saline nasal spray - following AM labs would transition to Flonase if appropriate Admission and Anticipated Discharge Date Admission Date: August 11, 2021 Subjective pt has not complaints or problems still with lower sodium Review of Systems Review of Systems: Mild distress and fatigue no headache, no visual changes no speech or swallowing issues no chest pain, pressure or palpitations no shortness of breath, cough or wheezes no abdominal pain, nausea or vomiting, diarrhea or constipation no dysuria, hematuria or frequency no focal joint pain or swelling no back pain, CVA tenderness or radicular pain no bruising, bleeding or rashes no focal signs of weakness or numbness or altered sensation no complaints of anxiety or depression.. Physical Exam Physical Exam: The patient appeared well nourished and normally developed. Vital signs as documented. Head exam is normocephalic atraumatic Neck is without JVD, thyromegaly, or carotid bruits. Lungs are clear to auscultation, no focal loss of breath sounds Cardiac exam, Rhythm is regular.. No murmurs, rubs or gallops. Abdominal exam reveals normal bowel sounds, soft non tender, no masses Extremities are nonedematous and both pedal pulses are present Neurologic exam is alert and oriented, no focal loss of strength or sensation Skin is without bruises or rashes Psychologically is without concerns for anxiety or depression.. Results & Data Results & Data ([facility]) Vital Signs (Past 12 Hours) Vital Signs Temp Pulse Pulse Resp BP Pulse Ox 08/13/21 01:47 98.4 F 70 18 111/68 94 08/13/21 00:26 70 08/12/21 22:36 98.8 F 68 18 117/62 95 08/12/21 20:44 91 H 113/67 PG Care Time/CCT Total # of Minutes Spent Total Time Spent with Patient: Total time spent is greater than 50% in coordination of care (as documented) at patient's floor/unit and/or counseling patient: Coding Level of Care Code 95490 Subseq Hosp Care Lvl 2 Diagnoses Hyponatremia E87.1 Hypomagnesemia E83.42 Elevated CK R74.8 Primary hypopituitarism E23.0 CHRISTINA (acute kidney injury) N17.9 Hypothyroidism E03.9 Hyperaldosteronism E26.9 Weakness R53.1 Vomiting and diarrhea R11.10; R19.7 COVID-19 U07.1 Sinusitis J32.9
[2021-08-13] MEDS: FAMOTIDINE 20 MG TAB PO SCH ×2 (08:19→20:12)
[2021-08-13] MEDS: CETIRIZINE HCL 10 MG TABLET PO SCH (08:19)
[2021-08-13] MEDS: ENOXAPARIN INJ 40 MG/0.4 ML SYR SQ SCH (08:19)
[2021-08-13] MEDS: SODIUM CHLORIDE 0.65% NA SOLN 45 ML (OCEAN) SCH ×3 (08:19→20:13)
[2021-08-13 08:43] LABS: Calcium 7.5 mg/dl (8.5-10.1); Creatinine Clr Calc Pharmacy 46.6 ml/min; Est GFR (African American) 51.5 ml/min; Est GFR (Non-African American) 44.4 ml/min; Potassium 4.4 mmol/L (3.5-5.1)
[2021-08-13] MEDS ORDERED: SODIUM CHLORIDE 3 % 150 ML IV ONE (08:51)
--- NOTE | 2021-08-13 10:37 | Nephrology Progress Note ---
Date of Service August 13, 2021 Assessment & Plan (1) Hyponatremia: (2) Hypomagnesemia: (3) Hyperaldosteronism: (4) CHRISTINA (acute kidney injury): Plan: 56-year-old male admitted with acute hyponatremia and generalized weakness with history of COVID-19 infection CHRISTINA in June with persistent symptom of mainly weakness and low energy. Although initially clinically looks volume depleted but sodium did not improve after 2 L of IV fluid. Appetite and p.o. intake has been normal. Lisinopril was restarted on admission. Potassium has been normal. Magnesium improved. a.m. cortisol and prolactin was normal. Sodium remained relatively low around 117-119. Renal function stable. Decent urine output. Blood pressure well controlled. -- 150 mL of 3% saline bolus now, check serum sodium after the bolus and continue to monitor serum sodium, aim for correction up to 125 by tomorrow morning lab. -- Okay to continue on lisinopril -- keep normal dietary salt intake, free water restriction to less than 1.5 L per day -- Okay to hold spironolactone as blood pressure well controlled and potassium normal. Will follow Admission and Anticipated Discharge Date Admission Date: August 11, 2021 Radha Curtis was seen and examined in his room this morning. Overall he feels better, denies any specific symptom, no headache, confusion. Sodium remained low around 117-119. Renal function relatively stable with creatinine 1.7. Review of Systems Review of Systems: detailed review of system was otherwise unremarkable except mentioned above. Physical Exam Constitutional: WD/WN, vitals as above no acute distress Eyes: + anicteric sclerae Respiratory: no respiratory distress and no cough Auscultation: lungs clear to auscultation bilaterally Cardiovascular: Rate/Rhythm: regular rate and regular rhythm Heart Sounds: normal S1 and normal S2 Extremities: no edema Skin: no rashes Neurologic: no focal motor deficits and not confused Psychiatric: Orientation: alert and oriented x 3 Affect: euthymic affect Results & Data ([facility]) Vital Signs (Past 12 Hours) Vital Signs Temp Pulse Pulse Resp BP BP Pulse Ox 08/13/21 08:00 36.9 C 64 18 111/69 93 08/13/21 01:47 36.9 C 70 18 111/68 94 08/13/21 00:26 70 03/14/22 22:36 37.1 C 68 18 117/62 95 PG Care Time/CCT Total # of Minutes Spent Total Time Spent with Patient: Total time spent is greater than 50% in coordination of care (as documented) at patient's floor/unit and/or counseling patient: Coding Level of Care Code 49621 Subseq Hosp Care Lvl 3 Diagnoses Hyponatremia E87.1 Hypomagnesemia E83.42 Hyperaldosteronism E26.9 CHRISTINA (acute kidney injury) N17.9
[2021-08-13 12:37] LABS: BUN Creatinine Ratio 8.1 (10-20); Calcium 8.1 mg/dl (8.5-10.1); Creatinine Clr Calc Pharmacy 42.1 ml/min; Est GFR (African American) 45.5 ml/min; Est GFR (Non-African American) 39.3 ml/min; Potassium 4.7 mmol/L (3.5-5.1)
[2021-08-13] MEDS ORDERED: PROMETHAZINE HCL 25 MG TAB PO PRN (19:23)
[2021-08-13] MEDS: METOPROLOL SUCC 50MG EXT REL TAB PO SCH (20:12)
[2021-08-14] MEDS: LEVOTHYROXINE SODIUM 50 MCG TABLET PO SCH (05:51)
[2021-08-14] MEDS: ENOXAPARIN INJ 40 MG/0.4 ML SYR SQ SCH (07:32)
[2021-08-14] MEDS: FAMOTIDINE 20 MG TAB PO SCH ×2 (07:34→20:54)
[2021-08-14] MEDS: CETIRIZINE HCL 10 MG TABLET PO SCH (07:34)
[2021-08-14] MEDS: SODIUM CHLORIDE 0.65% NA SOLN 45 ML (OCEAN) SCH ×3 (07:34→20:55)
[2021-08-14 08:02] LABS: Basophils # (auto) 0.04 K/uL (0-0.2); Basophils % (auto) 0.7 %; Eosinophils % (auto) 3.5 %; Hemoglobin 11.3 g/dL (14.0-18.0); Immature Granulocytes # (auto) 0.07 K/uL (0.00-0.02); Immature Granulocytes % (auto) 1.2 %; Lymphocytes # (auto) 1.72 K/uL (1.2-3.4); Lymphocytes % (auto) 29.8 %; Mean Corpuscular Hemoglobin 29.7 pg (25-34); Mean Corpuscular Hgb Conc 36.5 g/dL (32-36); Mean Corpuscular Volume 81.6 fL (80-100); Mean Platelet Volume 8.8 fL (7.4-10.4); Monocytes # (auto) 1.12 K/uL (0.11-0.59); Monocytes % (auto) 19.4 %; Neutrophils # (auto) 2.62 K/uL (1.4-6.5); Neutrophils % (auto) 45.4 %; Platelet Count 218 K/uL (130-400); RDW Coefficient of Variation 13.2 % (11.5-14.5); RDW Standard Deviation 39.9 fL (36.4-46.3); White Blood Count 5.77 K/uL (4.8-10.8)
[2021-08-14 08:27] LABS: BUN Creatinine Ratio 9.3 (10-20); Calcium 8.1 mg/dl (8.5-10.1); Creatinine Clr Calc Pharmacy 42.6 ml/min; Est GFR (African American) 46.1 ml/min; Est GFR (Non-African American) 39.8 ml/min; Magnesium 1.9 mg/dl (1.7-2.4); Potassium 4.4 mmol/L (3.5-5.1)
[2021-08-14] MEDS ORDERED: SODIUM CHLORIDE 3 % 150 ML IV ONE (09:45)
[2021-08-14] MEDS: SODIUM CHLORIDE 1 GM TABLET PO SCH ×2 (10:23→20:54)
--- NOTE | 2021-08-14 11:05 | Nephrology Progress Note ---
Date of Service August 14, 2021 Assessment & Plan (1) Hyponatremia: (2) Hypomagnesemia: (3) Hyperaldosteronism: (4) CHRISTINA (acute kidney injury): Plan: 56-year-old male admitted with acute hyponatremia and generalized weakness with history of COVID-19 infection CHRISTINA in June with persistent symptom of mainly weakness and low energy. Although initially clinically looks volume depleted but sodium did not improve after 2 L of IV fluid. Appetite and p.o. intake has been normal. Lisinopril was restarted on admission. Potassium has been normal. Magnesium improved. a.m. cortisol and prolactin was normal. Sodium remained relatively low around 119. Renal function stable. Decent urine output. Blood pressure well controlled. -- 150 mL of 3% saline bolus now, check serum sodium after the bolus -- start on salt tablet 2 g twice a day -- Okay to continue on lisinopril -- keep normal dietary salt intake, free water restriction to less than 1.5 L per day -- Okay to hold spironolactone as blood pressure well controlled and potassium normal. Will follow Admission and Anticipated Discharge Date Admission Date: August 11, 2021 Radha Curtis was seen and examined in his room this morning. Overall he feels better, denies any specific symptom, no headache, confusion. Sodium again dropped to 119. Renal function relatively stable. Review of Systems Review of Systems: detailed review of system was otherwise unremarkable except mentioned above. Physical Exam Constitutional: WD/WN, vitals as above no acute distress Eyes: + anicteric sclerae Respiratory: no respiratory distress and no cough Auscultation: lungs clear to auscultation bilaterally Cardiovascular: Rate/Rhythm: regular rate and regular rhythm Heart Sounds: normal S1 and normal S2 Extremities: no edema Neurologic: not confused Psychiatric: Orientation: alert and oriented x 3 Affect: euthymic affect Results & Data ([facility]) Vital Signs (Past 12 Hours) Vital Signs Temp Pulse Pulse Resp BP Pulse Ox 08/14/21 10:44 60 08/14/21 10:33 36.6 C 71 22 103/66 96 08/14/21 07:00 37.5 C 65 20 115/72 95 08/14/21 02:57 37.1 C 20 119/68 95 PG Care Time/CCT Total # of Minutes Spent Total Time Spent with Patient: Total time spent is greater than 50% in coordination of care (as documented) at patient's floor/unit and/or counseling patient: Coding Level of Care Code 83238 Subseq Hosp Care Lvl 2 Diagnoses Hyponatremia E87.1 Hypomagnesemia E83.42 Hyperaldosteronism E26.9 CHRISTINA (acute kidney injury) N17.9
[2021-08-14] MEDS ORDERED: SODIUM CHLORIDE 1 GM TABLET PO STA (13:38)
--- NOTE | 2021-08-14 20:05 | Hospitalist Progress Note ---
Date of Service August 14, 2021 Assessment & Plan (1) Hyponatremia: Plan: Subacute/chronic, last sodium [facility] 06/22/2021 was 130, admit @ 113 Weakness, fatigue for 3-4 days prior to admission - On admission volume and solute depleted, worsened with spironolactone Serum osmoles and urine osmoles low @ admit Initially volume resuscitated, with return of diuresis morning of 08/12 Nephrology consulted. Appreciate recs, stopping hypertonic saline, fluid restrict Sodium improving. 122 now on sodium tablets, hypertonic fluid. (2) Hypomagnesemia: Plan: replete (3) Elevated CK: Plan: seems stable around 700 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 - Prolactin, ACTH pending - TSH 1.002 - No bitemporal hemianopsia on exam (5) CHRISTINA (acute kidney injury): Plan: CHRISTINA likely pre-renal as above - Cr normalized Lisinopril temporarily held, blood pressure 108/65 (6) Hypothyroidism: Plan: As above - Continue Synthroid (7) Hyperaldosteronism: Plan: By history reported labs per HPI- with labs decreasing levels- counfounding picture - Labs as above - Appreciate Nephrology consultation - Endocrine outpatient consult pending as above Hold spironolactone for now (8) Weakness: Plan: - Suspect 2/2 hyponatremia, correct as above then PT/OT (9) Vomiting and diarrhea: Plan: Acute on chronic- has not improved since having COVID - 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 (10) COVID-19: Plan: HX of recent in Jun 22- remains with PND, Fatigue, diarrhea as per HPI - Repeat COVID test: NEGATIVE (11) Sinusitis: Plan: Chronic sinusitis- patient states that this is somewhat seasonal - clear- without sinus pressure, fevers, or lymphadenopathy - Zyrtec - Saline nasal spray - following AM labs would transition to Flonase if appropriate Admission and Anticipated Discharge Date Admission Date: August 11, 2021 Subjective 56 yo male reports no new symptoms. Review of Systems Review of Systems: All systems reviewed & are unremarkable except as noted in HPI & below Physical Exam Physical Exam: The patient appeared well nourished and normally developed. Vital signs as documented. Head exam is normocephalic atraumatic Neck is without JVD, thyromegaly, or carotid bruits. Lungs are clear to auscultation, no focal loss of breath sounds Cardiac exam, Rhythm is regular.. No murmurs, rubs or gallops. Abdominal exam reveals normal bowel sounds, soft non tender, no masses Extremities are nonedematous and both pedal pulses are present Neurologic exam is alert and oriented, no focal loss of strength or sensation Skin is without bruises or rashes Psychologically is without concerns for anxiety or depression.. Results & Data Results & Data ([facility]) Vital Signs (Past 12 Hours) Vital Signs Temp Pulse Pulse Resp BP Pulse Ox 08/14/21 18:44 36.8 C 67 20 123/72 96 08/14/21 15:55 59 L 08/14/21 15:00 36.7 C 69 20 115/74 95 08/14/21 10:44 60 08/14/21 10:33 36.6 C 71 22 103/66 96 PG Care Time/CCT Total # of Minutes Spent Total Time Spent with Patient: Total time spent is greater than 50% in coordination of care (as documented) at patient's floor/unit and/or counseling patient: Coding Level of Care Code 15193 Subseq Hosp Care Lvl 3 Diagnoses Hyponatremia E87.1 Hypomagnesemia E83.42 Elevated CK R74.8 Primary hypopituitarism E23.0 CHRISTINA (acute kidney injury) N17.9 Hypothyroidism E03.9 Hyperaldosteronism E26.9 Weakness R53.1 Vomiting and diarrhea R11.10; R19.7 COVID-19 U07.1 Sinusitis J32.9
[2021-08-14] MEDS: METOPROLOL SUCC 50MG EXT REL TAB PO SCH (20:55)
[2021-08-15] MEDS: LEVOTHYROXINE SODIUM 50 MCG TABLET PO SCH (05:57)
[2021-08-15] MEDS: FAMOTIDINE 20 MG TAB PO SCH ×2 (08:26→20:27)
[2021-08-15] MEDS: SODIUM CHLORIDE 1 GM TABLET PO SCH ×2 (08:26→20:27)
[2021-08-15] MEDS: ENOXAPARIN INJ 40 MG/0.4 ML SYR SQ SCH (08:26)
[2021-08-15] MEDS: CETIRIZINE HCL 10 MG TABLET PO SCH (08:26)
[2021-08-15] MEDS: SODIUM CHLORIDE 0.65% NA SOLN 45 ML (OCEAN) SCH ×3 (08:27→20:28)
[2021-08-15 08:43] LABS: Albumin Level 3.7 gm/dl (3.4-5.0); Calcium 8.5 mg/dl (8.5-10.1); Creatinine Clr Calc Pharmacy 48.7 ml/min; Est GFR (African American) 54.2 ml/min; Est GFR (Non-African American) 46.8 ml/min; Potassium 4.7 mmol/L (3.5-5.1)
[2021-08-15] MEDS: TOLVAPTAN 15 MG TABLET PO SCH (10:21)
--- NOTE | 2021-08-15 10:35 | Nephrology Progress Note ---
Date of Service August 15, 2021 Assessment & Plan (1) Hyponatremia: (2) Hypomagnesemia: (3) Hyperaldosteronism: (4) CHRISTINA (acute kidney injury): Plan: 56-year-old male admitted with acute hyponatremia and generalized weakness with history of COVID-19 infection CHRISTINA in June with persistent symptom of mainly weakness and low energy. Although initially clinically looks volume depleted but sodium did not improve after 2 L of IV fluid. Appetite and p.o. intake has been normal. Lisinopril was restarted on admission. Potassium has been normal. Magnesium improved. a.m. cortisol and prolactin was normal. Sodium Slightly improved to 123. Renal function stable. Decent urine output. Blood pressure well controlled. -- tolvaptan 15 mg once daily, check serum sodium at 2:00 p.m. -- continue on salt tablet 2 g twice a day -- Okay to continue on lisinopril -- keep normal dietary salt intake. -- Okay to hold spironolactone as blood pressure well controlled and potassium normal. if sodium continues to improve, hopefully can be discharged tomorrow. Will follow Admission and Anticipated Discharge Date Admission Date: August 11, 2021 Radha Curtis was seen and examined in his room this morning. Overall he feels better, denies any specific symptom, no headache, confusion. Sodium slightly improved to 123 on salt tablet. Renal function relatively stable. Review of Systems Review of Systems: detailed review of system was otherwise unremarkable except mentioned above. Physical Exam Constitutional: WD/WN, vitals as above no acute distress Eyes: + anicteric sclerae Respiratory: no respiratory distress and no cough Auscultation: lungs clear to auscultation bilaterally Cardiovascular: Rate/Rhythm: regular rate and regular rhythm Heart Sounds: normal S1 and normal S2 Extremities: no edema Neurologic: not confused Psychiatric: Orientation: alert and oriented x 3 Affect: euthymic affect Results & Data ([facility]) Vital Signs (Past 12 Hours) Vital Signs Temp Pulse Pulse Resp BP BP Pulse Ox 08/15/21 07:00 62 08/15/21 06:42 37.1 C 62 18 119/66 94 08/15/21 03:57 37.1 C 61 20 128/71 96 08/14/21 22:58 37.2 C 69 18 125/78 95 03/16/22 22:42 65 PG Care Time/CCT Total # of Minutes Spent Total Time Spent with Patient: Total time spent is greater than 50% in coordination of care (as documented) at patient's floor/unit and/or counseling patient: Coding Level of Care Code 01532 Subseq Hosp Care Lvl 3 Diagnoses Hyponatremia E87.1 Hypomagnesemia E83.42 Hyperaldosteronism E26.9 CHRISTINA (acute kidney injury) N17.9
--- NOTE | 2021-08-15 20:10 | Hospitalist Progress Note ---
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 Appreciate recs, stopping hypertonic saline, fluid restrict Sodium improving. 123 Appreciate input from Nephro: Slightly improved to 123. Renal function stable. Decent urine output. Blood pressure well controlled. -- tolvaptan 15 mg once daily, check serum sodium at 2:00 p.m. -- continue on salt tablet 2 g twice a day -- Okay to continue on lisinopril -- keep normal dietary salt intake. -- Okay to hold spironolactone as blood pressure well controlled and potassium normal. if sodium continues to improve, hopefully can be discharged tomorrow. (2) Hypomagnesemia: Plan: replenished (3) Elevated CK: Plan: seems stable around 700, downtrending. 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 - Prolactin, ACTH pending - TSH 1.002 - No bitemporal hemianopsia on exam (5) CHRISTINA (acute kidney injury): Plan: CHRISTINA likely pre-renal as above - Cr normalized Lisinopril temporarily held, blood pressure 128/80 (6) Hypothyroidism: Plan: As above - Continue Synthroid (7) Hyperaldosteronism: Plan: By history reported labs per HPI- with labs decreasing levels- counfounding picture - Labs as above - Appreciate Nephrology consultation - Endocrine outpatient consult pending as above Hold spironolactone for now (8) Weakness: Plan: - Suspect 2/2 hyponatremia, correct as above then PT/OT (9) Vomiting and diarrhea: Plan: Acute on chronic- has not improved since having COVID - 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 (10) COVID-19: Plan: HX of recent in Jun 22- remains with PND, Fatigue, diarrhea as per HPI - Repeat COVID test: NEGATIVE (11) Sinusitis: Plan: Chronic sinusitis- patient states that this is somewhat seasonal - clear- without sinus pressure, fevers, or lymphadenopathy - Zyrtec - Saline nasal spray - following AM labs would transition to Flonase if appropriate Admission and Anticipated Discharge Date Admission Date: August 11, 2021 Subjective Patient reports no new symptoms today. Patient feels like he is back to his baseline. Review of Systems Review of Systems: All systems reviewed & are unremarkable except as noted in HPI & below Physical Exam Physical Exam: The patient appeared well nourished and normally developed. Vital signs as documented. Head exam is normocephalic atraumatic Neck is without JVD, thyromegaly, or carotid bruits. Lungs are clear to auscultation, no focal loss of breath sounds Cardiac exam, Rhythm is regular.. No murmurs, rubs or gallops. Abdominal exam reveals normal bowel sounds, soft non tender, no masses Extremities are nonedematous and both pedal pulses are present Neurologic exam is alert and oriented, no focal loss of strength or sensation Skin is without bruises or rashes Psychologically is without concerns for anxiety or depression.. Results & Data Results & Data ([facility]) Vital Signs (Past 12 Hours) Vital Signs Temp Pulse Pulse Resp BP Pulse Ox 08/15/21 18:34 36.6 C 86 18 128/80 96 08/15/21 17:00 63 08/15/21 14:37 36.9 C 73 18 122/73 94 08/15/21 11:25 36.5 C 96 08/15/21 11:13 67 137/87 PG Care Time/CCT Total # of Minutes Spent Total Time Spent with Patient: Total time spent is greater than 50% in coordination of care (as documented) at patient's floor/unit and/or counseling patient: Coding Level of Care Code 15273 Subseq Hosp Care Lvl 2 Diagnoses Hyponatremia E87.1 Hypomagnesemia E83.42 Elevated CK R74.8 Primary hypopituitarism E23.0 CHRISTINA (acute kidney injury) N17.9 Hypothyroidism E03.9 Hyperaldosteronism E26.9 Weakness R53.1 Vomiting and diarrhea R11.10; R19.7 COVID-19 U07.1 Sinusitis J32.9 Time Spent (min) 25
[2021-08-15] MEDS: METOPROLOL SUCC 50MG EXT REL TAB PO SCH (20:27)
[2021-08-16 06:20] LABS: Albumin Level 3.8 gm/dl (3.4-5.0); BUN Creatinine Ratio 9.9 (10-20); Calcium 8.9 mg/dl (8.5-10.1); Creatinine Clr Calc Pharmacy 40.6 ml/min; Est GFR (African American) 43.5 ml/min; Est GFR (Non-African American) 37.5 ml/min; Phosphorus 2.8 mg/dl (2.5-4.9); Potassium 4.9 mmol/L (3.5-5.1)
[2021-08-16] MEDS: LEVOTHYROXINE SODIUM 50 MCG TABLET PO SCH (06:21)
[2021-08-16] MEDS: FAMOTIDINE 20 MG TAB PO SCH (09:51)
[2021-08-16] MEDS: SODIUM CHLORIDE 1 GM TABLET PO SCH (09:51)
[2021-08-16] MEDS: CETIRIZINE HCL 10 MG TABLET PO SCH (09:51)
[2021-08-16] MEDS: ENOXAPARIN INJ 40 MG/0.4 ML SYR SQ SCH (09:52)
[2021-08-16] MEDS: SODIUM CHLORIDE 0.65% NA SOLN 45 ML (OCEAN) SCH ×2 (09:52→14:19)
[2021-08-16] MEDS: TOLVAPTAN 15 MG TABLET PO SCH (10:49)
--- NOTE | 2021-08-16 11:18 | Discharge Summary ---
Date of Service August 16, 2021 Admission HPI Per Admitting Provider 56 YOM with past medical history of: Primary Hypopituitary as child requiring, GH up until age 10, HTN with workup for hyperaldosteronism (on spironolactone of 100mg), Hypokalemia, COVID in Jun, previous tobacco user, diarrhea. Patient comes to the hospital today for 4 day history of increase in fatigue, muscle cramps, vomiting, and occasional diarrhea associated with decrease in food and water intake. He has just felt like laying on the couch since that time and has not been up and ambulating much. The patient continues to have persistent nasal drainage that has been ongoing since June- which remains clear but is draining down the back of his throat, making him have coughing fits at times severe enough to where he has emesis. He was placed on Doxycycline by his PCP through virtual visit. This has occurred 2-3 times over the past 24 hours. He sips on water to assist him in getting the drainage down to back of throat. He tried to have some tea and water this morning as well as applesauce, and he did have emesis. He has continued with his spironolactone as well and reports that his urine is clear. His nausea and vomiting are not associated with any abdominal pain and is mostly yellow in nature. His diarrhea is periodic with normal BM in between, but when they do occur they are usually large and soft. No blood or mucous in the stools and again no abdominal pain. In the EMD the patient had routine labs performed to include BMP, CBC, MG, and PO4. Notably his NA level returned at 113 and Magnesium of 1.1- serum osmo and urine osmo were sent at request. These have returned with Serum osmo at 245 and Urine Osmo of 347- which would be consistent with decrease solute intake and likely aggravated by his diuretic use and his STITCHER UTILITY is increased to 1.45 (1.15). His mucous membranes are dry on exam as well. He has received 1Liter of saline in the ED and is currently with 0.9% saline infusing at 125ml/hour. Patient will be admitted, Free water restrict, replace magnesium with 6GM in 600ml bag of 0.9% saline and run that over 6-8 hours as well. Follow his BMP with goal of NA correction 8ml/24 hour period. For his primary aldosteronism, and his hypopit history- he is being followed by nephrology and is pending a Endocrinology consultation. He had his Spironolactone increased in July which has helped his BP control. He has not had Cortiosol testing that I am able to find. TSH is pending as well as free T 3. Through review nephrology note notes a previous evaluation of aldosterone level of 23 with renin level of 0.09---and repeat done in 07/02/21 with aldosterone level of 6 and Plasma Renin Activity of 0.23 (Lab results- scanned lab reports), which is a little confounding. Will consult Nephrology to follow along, will add on other endocrine labs for morning to assist with following. Principal Diagnosis Hyponatremia Hypomagnesemia CHRISTINA Discharge Exam GENERAL: 56 yo well-developed, well-nourished WM. NAD. LUNGS: Clear to auscultation bilaterally. No W/R/R. CARDIOVASCULAR: Regular rate and rhythm. No M/G/R. No JVD. ABDOMEN: Soft, non-tender and non-distended. BS normal x 4 quad. EXTREMITIES: No edema. Non-tender. Peripheral pulses +2/4. NEUROLOGIC: A&O x3. PSYCHIATRIC: Cooperative. Appropriate mood and affect. SKIN: Warm, dry, intact. No rashes or lesions. Discharge Data Allergies Allergy/AdvReac Type Severity Reaction Status Date / Time Penicillins Allergy Mild Unknown Unverified 08/11/21 15:28 Consultations 08/11/21 14:09 ED Decision to Admit Stat 08/11/21 17:46 Consult Nephrology Routine Ordered Studies Chest X-Ray 08/11/21 13:00 XR chest 1V portable HISTORY: 56 years-old Male cough generalized weakness acute cough with weakness COMPARISON: Chest radiographs 06/20/2021 TECHNIQUE: Portable AP view of the chest FINDINGS: Cardiomediastinal and hilar silhouettes are within normal limits. No pneumothorax, pleural effusion, airspace consolidation or overt pulmonary edema. Bones of the chest appear grossly intact. IMPRESSION: No acute process. ACT 112: Negative or not required by law. The above report was generated using voice recognition software. It may contain grammatical, syntax or spelling errors. Electronically signed by: Kristian Alvarenga M.D. 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 Appreciate recs, stopping hypertonic saline, fluid restrict Appreciate input from Nephro: * Treated with Tolvaptan 15mg x 2 days * Salt tabs 2g BID * Keep normal dietary salt intake * Continue holding spironolactone -- ultimately will NOT be continued upon d/c * Na 08/16 labs 132 -- will require follow up labs on Saturday 08/19 with results sent to Dr. Kim (2) Hypomagnesemia: replaced/resolved (3) Elevated CK: seems stable around 700, downtrending. 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 until puberty - Prolactin, ACTH pending - TSH 1.002 - No bitemporal hemianopsia on exam (5) CHRISTINA (acute kidney injury): CHRISTINA likely pre-renal as above, renal fxn has waxed and waned throughout hospitalization Lisinopril temporarily held, blood pressure 128/80 Would not recommend fluid restriction at this time, will need follow-up labs on Thursday Continue holding CUCO inhibitor, blood pressure is acceptable in its absence Follow-up with nephrology as outpatient (6) Hypothyroidism: As above Continue Synthroid (7) Hyperaldosteronism: By history reported labs per HPI- with labs decreasing levels- confounding picture Appreciate Nephrology consultation Endocrine outpatient consult pending as above Hold spironolactone for now (8) Weakness: Suspect 2/2 hyponatremia Has been up ambulating in his room independently (9) Vomiting and diarrhea: Acute on chronic- has not improved since having COVID 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 (10) COVID-19: HX of recent in Jun 22- remains with PND, Fatigue, diarrhea as per HPI Repeat COVID test: NEGATIVE (11) Sinusitis: Chronic sinusitis- patient states that this is somewhat seasonal clear- without sinus pressure, fevers, or lymphadenopathy Zyrtec Saline nasal spray - could utilize OTC Flonase At this time patient is medically and hemodynamically stable for discharge home today. Will plan for outpatient labs on 08/19/20[address] with results sent to [address] Kim. Outpatient follow-up with his primary care physician within 1 week and follow-up with nephrology within 1 week as well. Continue salt tabs twice daily. Ultimately stop spironolactone and lisinopril for now. Follow up with endocrine as scheduled. Above plan of care has been d/w Dr. Oates who has also seen and evaluated this patient. Total Time Total Time Spent Total Time Spent (In Minutes): >30 minutes Discharge Plan Discharge Items Patient Disposition: Home - Self-Care Reason For Visit: HYPONATREMIA, HYPOMAG Discharge Diagnosis: Low sodium level Activity: Resume your previous activity Non-emergency contact: Primary Care Provider and Medical Records Coder Call non-emergency contact if: you have any medication questions Follow-up/Referrals: Rosalina Salas CRNP [Primary Care Provider] - Kuldip Kim DO [Physician] - 09/11/21 1:20 pm (1 week - task sent to office for something sooner than current appt ) Diet: Regular Ambulatory Orders: Basic Metabolic Panel (Routine) Timeframe: [id number] Location: Determined by Patient Ordered By: Kelsey Arango Attending Provider Instructions: You were hospitalized due to electrolyte abnormalities--low magnesium, and sodium--which have been essentially corrected. Your sodium is now within acceptable limits to send you home. We DO NOT recommend that you restrict your fluids. You will be continued on salt tablets to be taken twice daily. At this time, we have stopped your Spironolactone and Lisinopril. Your blood pressure despite not getting these medications have been acceptable. You can continue the Amlodipine and Metoprolol Succinate as prescribed. We will have you get follow up labwork on Saturday 08/19 and these results will be forwarded to Dr. Kim. We will have you follow up with him in the office in about one week. Recommend following up with your primary care provider within 1 week of discharge. Pending Studies at Discharge: No Stand-Alone Forms: My [employer], Smoking Cessation Medications and DC Order Prescriptions: New metoprolol succinate 50 mg Tablet Extended Release 24 Hr 50 mg PO QPM Qty: 30 RF: 0 sodium chloride 1 gram Tablet 2 g PO BID Qty: 60 RF: 0 Continued amlodipine 5 mg tablet 5 mg PO HS RF: 0 atorvastatin 40 mg tablet 40 mg PO HS RF: 0 levothyroxine 50 mcg tablet 50 mcg PO DAILYBB RF: 0 Discontinued doxycycline hyclate 100 mg tablet 100 mg PO BID Qty: 20 RF: 0 metoprolol succinate 50 mg tablet extended release 24 hr 50 mg PO HS RF: 0 lisinopril 40 mg tablet 40 mg PO HS RF: 0 Hold Instructions: Home Medication placed on hold at Doctor's office potassium chloride [Klor-Con M20] 20 mEq tablet,ER particles/crystals 40 meq PO HS RF: 0 spironolactone 100 mg tablet 100 mg PO HS RF: 0 Discharge Orders: Discharge Order (Routine); Ordered 08/16/21 Ordered By: Kelsey Collado/Other Patient Handouts: Sodium Chloride Oral Tablet 1000 mg, Hyponatremia Dc Admission Data Admit Date/Time: 08/11/21 15:23 Attending Provider: Obed Oates Admit Provider: Obed Oates Primary Care Provider: Rosalina Salas Other Providers: Obed Oates ; Danika Lazcano Other Interventions: Discharge Summary Assessment (RN) Last Done: 08/16/21 12:09 Supervising Physician Co-Signing Physician Notes Seen at bedside. Sodium improved, not yet normalized. Symptoms improved. No abdominal tenderness, distal extremity strength 5/5 and sensation intact in hands and feet. Reviewed plan, no questions or concerns at bedside. Agree with management above. Coding Level of Care Code D/C DAY MANAGEMENT >30 MINS Diagnoses Hyponatremia E87.1 Hypomagnesemia E83.42 Elevated CK R74.8 Primary hypopituitarism E23.0 CHRISTINA (acute kidney injury) N17.9 Hypothyroidism E03.9 Hyperaldosteronism E26.9 Weakness R53.1 Vomiting and diarrhea R11.10; R19.7 COVID-19 U07.1 Sinusitis J32.9
--- NOTE | 2021-08-16 11:49 | Nephrology Progress Note ---
Date of Service August 16, 2021 Assessment & Plan (1) Hyponatremia: (2) Hypomagnesemia: (3) Hyperaldosteronism: (4) CHRISTINA (acute kidney injury): Plan: 56-year-old male admitted with acute hyponatremia and generalized weakness with history of COVID-19 infection CHRISTINA in June with persistent symptom of mainly weakness and low energy. Although initially clinically looks volume depleted but sodium did not improve after 2 L of IV fluid. Appetite and p.o. intake has been normal. Lisinopril was restarted on admission. Potassium has been normal. Magnesium improved. a.m. cortisol and prolactin was normal. Sodium improved to 132. Renal function stable. Decent urine output. Blood pressure well controlled. -- Will give another dose of tolvaptan 15 mg today. liberalize fluid intake, cancel fluid restriction. -- continue on salt tablet 2 g twice a day On discharge, continue to keep off of spironolactone as blood pressure has been well controlled. -- Okay to continue on lisinopril -- keep normal dietary salt intake. -- Okay to discharge, repeat lab Thursday Will follow Admission and Anticipated Discharge Date Admission Date: August 11, 2021 Radha Curtis was seen and examined in his room this morning. Overall he feels better, denies any specific symptom, no headache, confusion. Sodium slightly improved to 132 after receiving 1 dose of tolvaptan yesterday. Renal function slightly worsened, creatinine 1.9. Review of Systems Review of Systems: detailed review of system was otherwise unremarkable except mentioned above. Physical Exam Constitutional: WD/WN, vitals as above no acute distress Eyes: + anicteric sclerae Respiratory: no respiratory distress and no cough Auscultation: lungs clear to auscultation bilaterally Cardiovascular: Rate/Rhythm: regular rate and regular rhythm Heart Sounds: normal S1 and normal S2 Extremities: no edema Neurologic: not confused Psychiatric: Orientation: alert and oriented x 3 Affect: euthymic affect Results & Data ([facility]) Vital Signs (Past 12 Hours) Vital Signs Temp Pulse Pulse Resp BP BP Pulse Ox 08/16/21 11:17 36.6 C 66 21 123/78 96 08/16/21 08:30 77 08/16/21 07:23 36.7 C 63 20 130/87 94 08/16/21 03:20 36.6 C 74 20 146/82 H 97 08/16/21 00:54 70 PG Care Time/CCT Total # of Minutes Spent Total Time Spent with Patient: Total time spent is greater than 50% in coordination of care (as documented) at patient's floor/unit and/or counseling patient: Coding Level of Care Code 27957 Subseq Hosp Care Lvl 3 Diagnoses Hyponatremia E87.1 Hypomagnesemia E83.42 Hyperaldosteronism E26.9 HCRISTINA (acute kidney injury) N17.9
== END 2021-08-16 15:17 | disposition home or self-care (01) | DRG 641 ==
LOC: ED 12:13 → SUATTDRO 15:23 → 3W 15:23 → 2N 20:04

== ENCOUNTER 2021-11-28 01:39 | Inpatient (IN) ==
[2021-11-28 03:10] LABS: Basophils # (auto) 0.03 K/uL (0-0.2); Basophils % (auto) 0.5 %; Eosinophils # (auto) 0.24 K/uL (0-0.5); Eosinophils % (auto) 4.2 %; Hematocrit (blood only) 39.7 % (42-52); Hemoglobin 14.5 g/dL (14.0-18.0); Immature Granulocytes # (auto) 0.01 K/uL (0.00-0.02); Immature Granulocytes % (auto) 0.2 %; Lymphocytes # (auto) 1.68 K/uL (1.2-3.4); Lymphocytes % (auto) 29.5 %; Mean Corpuscular Hemoglobin 28.7 pg (25-34); Mean Corpuscular Hgb Conc 36.5 g/dL (32-36); Mean Corpuscular Volume 78.6 fL (80-100); Mean Platelet Volume 10.6 fL (7.4-10.4); Monocytes # (auto) 0.35 K/uL (0.11-0.59); Monocytes % (auto) 6.2 %; Neutrophils # (auto) 3.38 K/uL (1.4-6.5); Neutrophils % (auto) 59.4 %; Platelet Count 232 K/uL (130-400); RDW Coefficient of Variation 12.8 % (11.5-14.5); RDW Standard Deviation 36.5 fL (36.4-46.3); Red Blood Count 5.05 M/uL (4.7-6.1); White Blood Count 5.69 K/uL (4.8-10.8)
[2021-11-28 03:12] LABS: Base Excess VBG 7.8 mEq/L; HCO3 VBG 33 mmol/L; Oxygen Saturation VBG 71.6 %; PCO2 VBG 49 mmHg (38-50); PO2 VBG 41 mmHg; pH VBG 7.44 (7.36-7.41)
[2021-11-28] MEDS ORDERED: SODIUM CHLORIDE 0.9% 1000ML 1,000 ML IV SCH (03:30)
[2021-11-28 03:31] LABS: Albumin Globulin Ratio 1.4 (0.9-2); Albumin Level 4.2 gm/dl (3.4-5.0); BUN Creatinine Ratio 12.2 (10-20); Bilirubin,Total 1.1 mg/dl (0.2-1.0); Calcium 9.5 mg/dl (8.5-10.1); Creatinine Clr Calc Pharmacy 52.4 ml/min; Est GFR (African American) 59.6 ml/min; Est GFR (Non-African American) 51.4 ml/min; Globulin 2.9 gm/dl (2.5-4.0); Potassium 2.3 mmol/L (3.5-5.1); Total Protein 7.1 gm/dl (6.0-8.3)
[2021-11-28] MEDS ORDERED: POTASSIUM CHLORIDE CRTAB 20 MEQ TABCR PO STA ×3 (03:32→16:04)
[2021-11-28] MEDS: POTASSIUM CHLORIDE / WTR 10 MEQ/100 ML PLCT IV SCH ×6 (03:55→12:35)
--- NOTE | 2021-11-28 04:48 | History & Physical Report ---
Date of Service November 28, 2021 Assessment & Plan (1) Hyperglycemia: Plan: About 2 weeks of hyperglycemia symptoms (increased thirst & urination, blurry vision) after switching to regular soda from diet. Blood sugar in the ER was 630. No AG or acidosis. No prior diagnosis of DM. - IV fluids - Replete potassium -> Can only start insulin gtt after potassium is >3.3 - A1c pending - Glycemic pharmacist consulted - content curator consulted (2) Hypokalemia: Plan: Due to hyperaldosteronism. - Check Mg as he has been low in the past, and this could contribute to low K+ - Replete as above (3) Hypertension: Plan: Patient reports not frequently checking home BPs until about 3-4 days ago. Reports BPs being 170/95 - 190/105 at home and at the doctor's office. - Continue home metoprolol & eplerenone (will have to have bring in eplerenone as it is not formulary) - Restart prior amlodpine (patient stopped this just 4 days ago when he started eplerenone) - Hydralazine PO PRN -> Given high BPs at home and no sign of end organ damage, do not want to lower MAP more than ~30% this admission. (4) CKD (chronic kidney disease) stage 2, GFR 60-89 ml/min: Plan: Baseline Cr ~1.2 - 1.5, so patient is on upper end of his baseline on admission. - IV fluids for hyperglycemia - Monitor Cr (5) Microcytosis: Plan: MCV noted to be 79. Most priors are on the low side. No prior iron studies that I see. - Iron studies (6) Hyperaldosteronism: Plan: Per Dr. Kim's note, diagnosed ~20 years ago. Has not seen an stone polisher in many years. - Continue home eplerenone - Could consider reaching out to endocrinology (7) Primary hypopituitarism: Plan: Per report from . - No inpatient needs (8) Hypothyroidism: Plan: TSH was 1.0 in 07/2021. No signs/symptoms of hypo-/hyperthyroidism. - Continue home Synthroid 50 mcg - Recheck TSH/FT4 (9) DVT prophylaxis: Plan: SCDs - Low DVT risk per admission calculator History of Present Illness Primary Care Provider: NAYELY Klein 56yo M w/ hx of HTN, hyperaldosteronism, and episode of hyponatremia who presents with hyperglycemia and hypokalemia. The patient has had a difficult year in that he was hospitalized with Covid, diarrhea, and dehydration in June. In July, he was admitted with hyponatremia and required fairly extensive work-up and was felt to be due to spironolactone as well as some amount of SIADH. He first was diagnosed with HTN ~1999 (around age 34) for a work physical. Per Dr. Kim's note from 10/21/2021, a subsequent work-up revealed an elevated aldosterone level and he was diagnosed with hyperaldosteronism. He has been following with Dr. Kim and was seen last on 10/21. At that time, his eplerenone was prescribed, but he reports it was hard for his pharmacy to get, so he just started taking it 4 days ago. At the same time, he stopped his usual amlodipine which he had been taking for many years. Mr. Woodall went to his PCP on 11/26 because he has been experiencing a variety of symptoms. First, he notes that he has been "completely fatigued" since July or August. That is when he started golfing, and he reports that he cannot walk the greens, go up steps, or walk long distances without feeling totally wiped out. He reports that Dr. Kim told him his body cannot process artificial sugar very well, and about 2 months ago, he switched his diet sodas for regular soda. He drinks quite a bit of it, and he has noticed in the last 2 weeks that he's had dry mouth, polyuria, and occasionally blurry vision. He feels that with the constant dry mouth, he has had some dry cough, but no sputum production. He also feels like he has some aching "all over." He denies fevers/chills, denies shortness of breath, denies chest pain, abdominal pain, change in appetite, diarrhea, constipation, or other concerning issues. Allergies Allergy/AdvReac Type Severity Reaction Status Date / Time Penicillins Allergy Severe HAPPENED Verified 11/28/21 03:01 IN INFANT Home Medications Medication Instructions Recorded Confirmed Type amlodipine 5 mg tablet 5 mg PO HS 06/20/21 11/28/21 History atorvastatin 40 mg tablet 40 mg PO HS 08/11/21 11/28/21 History levothyroxine 50 mcg tablet 50 mcg PO DAILYBB 08/11/21 11/28/21 History eplerenone 25 mg tablet 25 mg PO HS 11/28/21 11/28/21 History metoprolol succinate 50 mg 50 mg PO HS 11/28/21 11/28/21 History tablet,extended release 24 hr Past Med/Surg History Medical History (Updated 11/28/21 @ 04:47 by Alex Shay MD) Arthritis CKD (chronic kidney disease) stage 2, GFR 60-89 ml/min Hyperaldosteronism Hypothyroidism Mesenteric panniculitis Primary hypopituitarism Recurrent sinus infections Family History Father Myocardial infarction Denies family history of Ovarian cancer Prostate cancer Breast cancer Colorectal cancer Social History Smoking Status: Former smoker Tobacco Type: Smokeless Tobacco (Dip or Chew) Age Started Using Tobacco: 19; Age Quit Using Tobacco: 28; packs per day: 0.5; Years Smoked: 9; Cigarettes Per Day: 10; Number of Years Since Quit: 27; Second Hand Exposure: No; Hx Alcohol Use: No Hx Substance Use: No Preferred Language: Nepalese Communication Ability: Effective Visual Impairment: No Limitations Hearing Ability: Normal Pt Escort Required: No Beliefs That Will Affect Care: None marital status: Current Living Situation: Spouse Current Living Situation Comment: Lives with [facility] current occupational status: employed Feels Safe at Home: Yes Childhood Exposure to Second-Hand Smoke: Yes Dental Care, Regularly: Yes Physical Activity Frequency: 3-4 Times per Week Assistive Devices: None Review of Systems Review of Systems: All systems reviewed & are unremarkable except as noted in HPI & below Physical Exam Constitutional: WD/WN, vitals as above Eyes: EOM intact bilaterally; no conjunctival abnormality ENMT: external ear and nose normal, oropharynx normal Neck: trachea midline, no thyromegaly normal visual inspection Respiratory: normal respiratory effort, lungs clear to auscultation no respiratory distress Cardiovascular: RRR, no murmur, no edema Gastrointestinal (Abdomen): Inspection/Auscultation: abdomen normal to inspection; abdomen not distended Percussion/Palpation: abdomen soft; abdomen nontender, no guarding and abdomen not rigid Musculoskeletal: no cyanosis or clubbing, extremities motor strength 5/5 Skin: no rashes, warm and dry Neurologic: moves all extremities and awake Psychiatric: Orientation: alert, oriented to person and cooperative Results & Data Results & Data ([facility]) Vital Signs (Past 12 Hours) Vital Signs Temp Pulse Resp BP Pulse Ox 11/28/21 03:20 68 16 202/115 H 97 11/28/21 01:43 36.6 C 85 18 194/120 H 97 Code Status & VTE Plan VTE Prophylaxis Plan VTE Prophylaxis will be ordered: Yes PG Care Time/CCT Total # of Minutes Spent Total Time Spent with Patient: Total time spent is greater than 50% in coordination of care (as documented) at patient's floor/unit and/or counseling patient: Coding Level of Care Code 24082 Initial Inpt Care Lvl 3 Diagnoses Hyperglycemia R73.9 Hyperaldosteronism E26.9 Primary hypopituitarism E23.0 Hypokalemia E87.6 Hypothyroidism E03.9 DVT prophylaxis Z29.9 Hypertension I10 CKD (chronic kidney disease) stage 2, GFR 60-89 ml/min N18.2 Microcytosis R71.8
[2021-11-28] MEDS ORDERED: PHARMACY GLYCEMIC MGMT CONSULT PRN (05:02)
[2021-11-28] MEDS ORDERED: ONDANSETRON INJ 2 MG/ML 2 ML VIAL IV PRN (05:02)
[2021-11-28] MEDS ORDERED: GLUCAGON FOR INJ 1 MG VIAL SQ PRN (05:02)
[2021-11-28] MEDS ORDERED: ACETAMINOPHEN 325 MG TAB PO PRN (05:02)
[2021-11-28] MEDS ORDERED: hydrALAZINE 10 MG TAB PO PRN (05:02)
[2021-11-28] MEDS ORDERED: DEXTROSE 50% 50 ML SYRINGE IV PRN (05:02)
[2021-11-28] MEDS ORDERED: GLUCOSE 10 TABS/TUBE PO PRN (05:02)
[2021-11-28] MEDS ORDERED: CARBOHYDRATES FOR HYPOGLYCEMIA PO PRN (05:02)
[2021-11-28] MEDS ORDERED: GLUCOSE 40% GEL 15 GM TUBE PO PRN (05:02)
[2021-11-28 05:44] LABS: Magnesium 1.9 mg/dl (1.7-2.4)
[2021-11-28 05:53] LABS: Ferritin 197.2 ng/ml (8-388)
[2021-11-28] MEDS: POTASSIUM CHLORIDE 40 MEQ in SODIUM CHLORIDE 0.9% 1000ML 1,000 ML IV SCH ×3 (06:00→22:17)
[2021-11-28] MEDS: amLODIPine BESYLATE 5 MG TAB PO SCH ×2 (06:01→20:03)
[2021-11-28] MEDS ORDERED: INSULIN ASPART PER UNIT SC ONE (06:30)
--- NOTE | 2021-11-28 06:43 | Emergency Department Note ---
History of Present Illness General Chief complaint: Abnormal Labs/Diagnostic Testing Stated complaint: REF BY , POSSIBLE HIGH BP, HIGH BLOOD SUGAR Time Seen by Provider: 11/28/21 01:49 History of Present Illness This is a 56-year-old male presenting to the emergency department for evaluation of elevated blood sugar. The patient has had symptoms of polyuria and polydipsia for the past few months and went to his primary care physician 2 days ago. Outpatient labs did return last night and he had an elevated blood sugar of 499 as well as potassium of 2.5. He does not have a known history of diabetes but is with history of hyperaldosteronism and hypopituitary. There is additionally a history of chronic kidney disease. The patient has been drinking large volumes of water daily and urinating every 30 minutes. He has not had fevers or chills. No chest pain, chest tightness, shortness of breath. Home Medications Medication Instructions Recorded Confirmed Type amlodipine 5 mg tablet 5 mg PO HS 06/20/21 11/28/21 History atorvastatin 40 mg tablet 40 mg PO HS 08/11/21 11/28/21 History levothyroxine 50 mcg tablet 50 mcg PO DAILYBB 08/11/21 11/28/21 History eplerenone 25 mg tablet 25 mg PO HS 11/28/21 11/28/21 History metoprolol succinate 50 mg 50 mg PO HS 11/28/21 11/28/21 History tablet,extended release 24 hr Allergies Allergy/AdvReac Type Severity Reaction Status Date / Time Penicillins Allergy Severe HAPPENED Verified 11/28/21 03:01 IN Past Med/Surg History Medical History (Updated 11/28/21 @ 21:52 by Roe Browning PA-C) Arthritis CKD (chronic kidney disease) stage 2, GFR 60-89 ml/min Diabetes mellitus Hyperaldosteronism Hypothyroidism Mesenteric panniculitis Primary hypopituitarism Recurrent sinus infections Surgical History No significant past surgical history Family History Father Myocardial infarction Denies family history of Ovarian cancer Prostate cancer Breast cancer Colorectal cancer Social History Smoking Status: Former smoker Tobacco Type: Smokeless Tobacco (Dip or Chew) Age Started Using Tobacco: 19; Age Quit Using Tobacco: 28; packs per day: 0.5; Years Smoked: 9; Cigarettes Per Day: 10; Number of Years Since Quit: 27; Second Hand Exposure: No; Hx Alcohol Use: No Hx Substance Use: No Preferred Language: Romanian Communication Ability: Effective Visual Impairment: No Limitations Hearing Ability: Normal Engineer Steam Required: No Beliefs That Will Affect Care: None marital status: Current Living Situation: Spouse Current Living Situation Comment: Lives with [facility] current occupational status: employed Feels Safe at Home: Yes Childhood Exposure to Second-Hand Smoke: Yes Dental Care, Regularly: Yes Physical Activity Frequency: 3-4 Times per Week Assistive Devices: Cane Review of Systems A total of 10 systems reviewed and were otherwise negative Physical Exam Vital Signs Vital Signs - 24 hr 11/28/21 01:43 11/28/21 03:20 11/28/21 04:01 Temperature 36.6 C Temperature Source Temporal Artery Scan Pulse Rate 85 68 65 Respiratory Rate 18 16 19 Blood Pressure 194/120 H 202/115 H 210/112 H Blood Pressure Mean 144 144 144 Pulse Oximetry 97 97 96 Oxygen Delivery Method Room Air Room Air Room Air Sepsis Recent Fever Within 48 Hours No Sepsis New/Unexplained Change in Mental Status No Sepsis Action Taken by Nursing No Action Required VITALS: Vitals are noted on the nurse's note and reviewed by myself. Vital signs with elevated blood pressure. GENERAL: Well-developed, well-nourished, white male, who is in no acute distress and resting comfortably. Patient is cooperative with the examination. HEAD: Normocephalic atraumatic. MOUTH: Mucous membranes dry. Tonsils are not enlarged. Pharynx without erythema, blood, or exudate. Uvula midline. Airway patent. NECK: Supple without nuchal rigidity. No lymphadenopathy. No thyromegaly. Cervical spine is nontender. HEART: Regular rate and rhythm without murmurs gallops or rubs. LUNGS: Clear to auscultation bilaterally without wheezes, rales or rhonchi. No retractions or accessory muscle use. ABDOMEN: Positive normal bowel sounds x 4. Soft, nontender, without masses or organomegaly. No guarding or rebound tenderness. MUSCULOSKELETAL: No muscle atrophy, erythema, or edema noted. Full range of motion in all extremities. Course Administered Medications Amlodipine Besylate (Amlodipine Besylate 5 Mg Tab) 5 mg PO [facility] Stop: 12/28/21 05:01 Last Admin: 11/28/21 20:03 Dose: 5 mg Documented by: [id number] Admin: 11/28/21 06:01 Dose: 5 mg Documented by: [id number] Atorvastatin Calcium (Atorvastatin 40 Mg Tab) 40 mg PO [facility] Stop: 12/28/21 20:59 Last Admin: 11/28/21 20:03 Dose: 40 mg Documented by: [id number] Hydralazine HCl (Hydralazine 10 Mg Tab) 10 mg PO Q4H PRN PRN Reason: SBP > 190 or DBP > 110 Stop: 12/28/21 05:01 Last Admin: 11/28/21 06:02 Dose: 10 mg Documented by: [id number] Potassium Chloride 40 meq/ (Sodium Chloride) 1,020 mls @ 125 mls/hr IV .Q8H10M [facility] Stop: 12/28/21 05:29 Last Admin: 11/28/21 14:25 Dose: 125 mls/hr Documented by: [id number] Infusion: 11/28/21 14:10 Dose: 125 mls/hr Documented by: [id number] Admin: 11/28/21 06:00 Dose: 125 mls/hr Documented by: [id number] Insulin Aspart (Insulin Aspart Per Unit) 0 units SC [facility]; Protocol Stop: 12/28/21 08:44 Last Admin: 11/28/21 20:15 Dose: 7 units Documented by: [id number] Cosigned by: [id number] Admin: 11/28/21 17:08 Dose: 4 units Documented by: [id number] Cosigned by: [id number] Admin: 11/28/21 12:35 Dose: 2 units Documented by: [id number] Cosigned by: [id number] Admin: 11/28/21 08:48 Dose: 15 units Documented by: [id number] Cosigned by: [id number] Levothyroxine Sodium (Levothyroxine Sodium 50 Mcg Tablet) [facility] Stop: 12/28/21 06:29 Last Admin: 11/28/21 08:16 Dose: Not Given Documented by: [id number] Metoprolol Succinate (Metoprolol Succ 50mg Ext Rel Tab) 50 mg PO [facility] Stop: 12/28/21 20:59 Last Admin: 11/28/21 20:03 Dose: 50 mg Documented by: [id number] Miscellaneous (Eplerenone~Order Awaiting Action) 1 ea N/A QS [facility] Stop: 12/28/21 05:44 Last Admin: 11/28/21 16:57 Dose: Not Given Documented by: [id number] Admin: 11/28/21 08:50 Dose: Not Given Documented by: [id number] Admin: 11/28/21 08:15 Dose: Not Given Documented by: [id number] Discontinued Medications Sodium Chloride (Nss 1000ml) 1,000 mls @ 999 mls/hr IV .Q1H1M [facility] Stop: 11/28/21 04:30 Last Infusion: 11/28/21 05:10 Dose: 0 mls/hr Documented by: [id number] Admin: 11/28/21 03:55 Dose: 999 mls/hr Documented by: [id number] Potassium Chloride (K Aron / Wtr) 10 meq in 100 mls @ 100 mls/hr IV Q1H [facility]; Protocol Stop: 11/28/21 05:44 Last Infusion: 11/28/21 06:22 Dose: 0 mls/hr Documented by: [id number] Admin: 11/28/21 05:05 Dose: 100 mls/hr Documented by: [id number] Infusion: 11/28/21 04:55 Dose: 100 mls/hr Documented by: [id number] Admin: 11/28/21 03:55 Dose: 100 mls/hr Documented by: [id number] Potassium Chloride (K Aron / Wtr) 10 meq in 100 mls @ 100 mls/hr IV Q1H [facility]; Protocol Stop: 11/28/21 11:59 Last Infusion: 11/28/21 14:27 Dose: 0 mls/hr Documented by: [id number] Admin: 11/28/21 12:35 Dose: 100 mls/hr Documented by: [id number] Infusion: 11/28/21 11:42 Dose: 100 mls/hr Documented by: [id number] Admin: 11/28/21 10:42 Dose: 100 mls/hr Documented by: [id number] Infusion: 11/28/21 10:36 Dose: 100 mls/hr Documented by: [id number] Admin: 11/28/21 09:36 Dose: 100 mls/hr Documented by: [id number] Infusion: 11/28/21 09:14 Dose: 100 mls/hr Documented by: [id number] Admin: 11/28/21 08:14 Dose: 100 mls/hr Documented by: [id number] Magnesium Sulfate/Dextrose (Magnesium Sulfate / D5w) 1 gm in 100 mls @ 50 mls/hr IV ONE ONE Stop: 11/28/21 09:59 Last Infusion: 11/28/21 10:42 Dose: 0 mls/hr Documented by: [id number] Admin: 11/28/21 08:13 Dose: 50 mls/hr Documented by: [id number] Magnesium Sulfate/Dextrose (Magnesium Sulfate / D5w) 1 gm in 100 mls @ 50 mls/hr IV Q2H [facility] Stop: 11/28/21 20:14 Last Infusion: 11/28/21 20:23 Dose: 0 mls/hr Documented by: [id number] Admin: 11/28/21 18:28 Dose: 50 mls/hr Documented by: [id number] Infusion: 11/28/21 18:27 Dose: 50 mls/hr Documented by: [id number] Admin: 11/28/21 16:27 Dose: 50 mls/hr Documented by: [id number] Insulin Aspart (Insulin Aspart Per Unit) 12 units SC ONE ONE Stop: 11/28/21 06:31 Last Admin: 11/28/21 06:41 Dose: 12 units Documented by: [id number] Cosigned by: [id number] Insulin Glargine (Lantus Per Unit Charge) 30 units SQ DAILY [facility]; Protocol Stop: 12/28/21 08:59 Last Admin: 11/28/21 08:54 Dose: 30 units Documented by: [id number] Cosigned by: [id number] Potassium Chloride (Potassium Chloride Crtab 20 Meq Tabcr) 40 meq PO NOW STA Stop: 11/28/21 03:33 Last Admin: 11/28/21 03:55 Dose: 40 meq Documented by: [id number] Potassium Chloride (Potassium Chloride Crtab 20 Meq Tabcr) 40 meq PO NOW STA Stop: 11/28/21 07:46 Last Admin: 11/28/21 08:12 Dose: 40 meq Documented by: [id number] Potassium Chloride (Potassium Chloride Crtab 20 Meq Tabcr) 40 meq PO NOW STA Stop: 11/28/21 16:05 Last Admin: 11/28/21 16:28 Dose: 40 meq Documented by: [id number] Potassium Chloride (Potassium Chloride Crtab 20 Meq Tabcr) 40 meq PO ONE ONE Stop: 11/28/21 21:01 Last Admin: 11/28/21 20:16 Dose: 40 meq Documented by: [id number] Medical Decision Making Differential Diagnosis Differential includes hyperglycemia, diabetes, coronary syndrome, myocardial infarction, CVA, TIA, anemia, infection, pneumonia, UTI, pyelonephritis, poor nutrition, dehydration, electrolyte disturbance,hypoglycemia. Laboratory Data Result diagrams: 11/28/21 02:38 11/28/21 14:28 Lab Results 11/28/21 11/28/21 11/28/21 Range/Units 02:38 02:38 02:38 WBC (4.8-10.8) K/uL RBC (4.7-6.1) M/uL Hgb (14.0-18.0) g/dL Hct (42-52) % MCV (80-100) fL MCH (25-34) pg MCHC (32-36) g/dL RDW Std Deviation (36.4-46.3) fL RDW Coeff of Cathie (11.5-14.5) % Plt Count (130-400) K/uL MPV (7.4-10.4) fL Immature Gran % (Auto) % Neut % (Auto) % Lymph % (Auto) % Amelia % (Auto) % Eos % (Auto) % Baso % (Auto) % Neut # (Auto) (1.4-6.5) K/uL Lymph # (Auto) (1.2-3.4) K/uL Amelia # (Auto) (0.11-0.59) K/uL Eos # (Auto) (0-0.5) K/uL Baso # (Auto) (0-0.2) K/uL Immature Gran # (Auto) (0.00-0.02) K/uL VBG pH (7.36-7.41) VBG pCO2 (38-50) mmHg VBG pO2 mmHg VBG HCO3 mmol/L VBG O2 Saturation % VBG Base Excess mEq/L Sodium 131 L (136-145) mmol/L Potassium 2.3 L* (3.5-5.1) mmol/L Chloride 91 L (98-107) mmol/L Carbon Dioxide 29 (21-32) mmol/L Anion Gap 11 (3-11) BUN 18 (6-23) mg/dl Creatinine 1.48 H (0.6-1.4) mg/dl Est Cr Clr Drug Dosing 52.4 ml/min Est GFR ( Amer) 59.6 ml/min Est GFR (Non-Af Amer) 51.4 ml/min BUN/Creatinine Ratio 12.2 (10-20) Glucose 627 H* (70-99(Fasting)) mg/dl POC Glucose (70-99) mg/dl Estimat Average Glucose 275 mg/dl Hemoglobin A1c 11.2 H (4.5-5.6) % Calcium 9.5 (8.5-10.1) mg/dl Magnesium (1.7-2.4) mg/dl Iron (35-175) mcg/dl Unsaturated IBC (155-355) mcg/dl Transferrin (200-360) mg/dl Ferritin (8-388) ng/ml Total Bilirubin 1.1 H (0.2-1.0) mg/dl AST 36 (13-39) U/L ALT 48 (7-52) U/L Alkaline Phosphatase 119 H (34-104) U/L Total Protein 7.1 (6.0-8.3) gm/dl Albumin 4.2 (3.4-5.0) gm/dl Globulin 2.9 (2.5-4.0) gm/dl Albumin/Globulin Ratio 1.4 (0.9-2) Lipase 77 (11-82) U/L SARS-CoV-2, RNA, NAAT NEGATIVE (NEGATIVE) 11/28/21 11/28/21 11/28/21 Range/Units 02:38 02:38 02:38 WBC 5.69 (4.8-10.8) K/uL RBC 5.05 (4.7-6.1) M/uL Hgb 14.5 (14.0-18.0) g/dL Hct 39.7 L (42-52) % MCV 78.6 L (80-100) fL MCH 28.7 (25-34) pg MCHC 36.5 H (32-36) g/dL RDW Std Deviation 36.5 (36.4-46.3) fL RDW Coeff of Cathie 12.8 (11.5-14.5) % Plt Count 232 (130-400) K/uL MPV 10.6 H (7.4-10.4) fL Immature Gran % (Auto) 0.2 % Neut % (Auto) 59.4 % Lymph % (Auto) 29.5 % Amelia % (Auto) 6.2 % Eos % (Auto) 4.2 % Baso % (Auto) 0.5 % Neut # (Auto) 3.38 (1.4-6.5) K/uL Lymph # (Auto) 1.68 (1.2-3.4) K/uL Amelia # (Auto) 0.35 (0.11-0.59) K/uL Eos # (Auto) 0.24 (0-0.5) K/uL Baso # (Auto) 0.03 (0-0.2) K/uL Immature Gran # (Auto) 0.01 (0.00-0.02) K/uL VBG pH 7.44 H (7.36-7.41) VBG pCO2 49 (38-50) mmHg VBG pO2 41 mmHg VBG HCO3 33 mmol/L VBG O2 Saturation 71.6 % VBG Base Excess 7.8 mEq/L Sodium (136-145) mmol/L Potassium (3.5-5.1) mmol/L Chloride (98-107) mmol/L Carbon Dioxide (21-32) mmol/L Anion Gap (3-11) BUN (6-23) mg/dl Creatinine (0.6-1.4) mg/dl Est Cr Clr Drug Dosing ml/min Est GFR ( Amer) ml/min Est GFR (Non-Af Amer) ml/min BUN/Creatinine Ratio (10-20) Glucose (70-99(Fasting)) mg/dl POC Glucose (70-99) mg/dl Estimat Average Glucose mg/dl Hemoglobin A1c (4.5-5.6) % Calcium (8.5-10.1) mg/dl Magnesium 1.9 (1.7-2.4) mg/dl Iron 61 (35-175) mcg/dl Unsaturated IBC 213 (155-355) mcg/dl Transferrin 191 L (200-360) mg/dl Ferritin 197.2 (8-388) ng/ml Total Bilirubin (0.2-1.0) mg/dl AST (13-39) U/L ALT (7-52) U/L Alkaline Phosphatase (34-104) U/L Total Protein (6.0-8.3) gm/dl Albumin (3.4-5.0) gm/dl Globulin (2.5-4.0) gm/dl Albumin/Globulin Ratio (0.9-2) Lipase (11-82) U/L SARS-CoV-2, RNA, NAAT (NEGATIVE) 11/28/21 Range/Units 03:01 WBC (4.8-10.8) K/uL RBC (4.7-6.1) M/uL Hgb (14.0-18.0) g/dL Hct (42-52) % MCV (80-100) fL MCH (25-34) pg MCHC (32-36) g/dL RDW Std Deviation (36.4-46.3) fL RDW Coeff of Cathie (11.5-14.5) % Plt Count (130-400) K/uL MPV (7.4-10.4) fL Immature Gran % (Auto) % Neut % (Auto) % Lymph % (Auto) % Amelia % (Auto) % Eos % (Auto) % Baso % (Auto) % Neut # (Auto) (1.4-6.5) K/uL Lymph # (Auto) (1.2-3.4) K/uL Amelia # (Auto) (0.11-0.59) K/uL Eos # (Auto) (0-0.5) K/uL Baso # (Auto) (0-0.2) K/uL Immature Gran # (Auto) (0.00-0.02) K/uL VBG pH (7.36-7.41) VBG pCO2 (38-50) mmHg VBG pO2 mmHg VBG HCO3 mmol/L VBG O2 Saturation % VBG Base Excess mEq/L Sodium (136-145) mmol/L Potassium (3.5-5.1) mmol/L Chloride (98-107) mmol/L Carbon Dioxide (21-32) mmol/L Anion Gap (3-11) BUN (6-23) mg/dl Creatinine (0.6-1.4) mg/dl Est Cr Clr Drug Dosing ml/min Est GFR ( Amer) ml/min Est GFR (Non-Af Amer) ml/min BUN/Creatinine Ratio (10-20) Glucose (70-99(Fasting)) mg/dl POC Glucose > 600 H* (70-99) mg/dl Estimat Average Glucose mg/dl Hemoglobin A1c (4.5-5.6) % Calcium (8.5-10.1) mg/dl Magnesium (1.7-2.4) mg/dl Iron (35-175) mcg/dl Unsaturated IBC (155-355) mcg/dl Transferrin (200-360) mg/dl Ferritin (8-388) ng/ml Total Bilirubin (0.2-1.0) mg/dl AST (13-39) U/L ALT (7-52) U/L Alkaline Phosphatase (34-104) U/L Total Protein (6.0-8.3) gm/dl Albumin (3.4-5.0) gm/dl Globulin (2.5-4.0) gm/dl Albumin/Globulin Ratio (0.9-2) Lipase (11-82) U/L SARS-CoV-2, RNA, NAAT (NEGATIVE) MDM Narrative Physical exam and history were performed. Nursing notes, EMR, and Medication List were personally reviewed. Patient appears to have patient labs with hyperglycemia. The patient was urgently referred to the ER for evaluation due to the significant elevation of his labs. On arrival the patient is slightly dry appearing. He does not appear toxic and is answering questions appropriately. IV access was established and labs were obtained. He was hydrated with normal saline. VBG was gathered. Urine collected. Patient's blood work is as above and was reviewed. He does not have a significantly elevated white blood cell count or gross anemia. Glucose is elevated significantly at 627. Anion gap is normal. He is not acidotic on VBG. Potassium is low at 2.3. COVID is negative. Other blood work is fairly unremarkable at this time. Overall the patient does not appear well for discharge home. He likely needs insulin to reduce his glucose, however with his potassium of 2.3 this cannot be initiated here in the ER. The patient was given 20 mEq potassium IV as well as 40 mEq p.o. here in the ER. The case was discussed with the hospitalist team who agreed to evaluate patient here in the ER. Please see their dictation for further patient course, plan, and disposition. The chart was completed utilizing [employer] Speech Voice Recognition Software. Grammatical errors, random word insertions, pronoun errors, and incomplete sentences are an occasional consequence of this system due to software limitations, ambient noise, and hardware issues. Any formal questions or concerns about the content, text, or information contained within the body of this dictation should be directly addressed to the provider for clarification. . Impression & Plan Hyperglycemia, Hypokalemia Discharge Plan Visit Data Chief Complaint: Abnormal Labs/Diagnostic Testing Stated Complaint: REF BY , POSSIBLE HIGH BP, HIGH BLOOD SUGAR ED Provider: Augustin Mao ED Midlevel Provider: Roe Browning Discharge Problem: Hyperglycemia, Hypokalemia Patient Disposition: Admitted As Inpatient Discharge Instructions Interventions: ED Discharge Assessment Last Done: 11/28/21 04:49
[2021-11-28] MEDS ORDERED: MAGNESIUM SULFATE / D5W 1 GM/100 ML BAG IV ONE (08:00)
[2021-11-28] MEDS: EPLERENONE~ORDER AWAITING ACTION SCH ×3 (08:15→16:57)
[2021-11-28] MEDS: LEVOTHYROXINE SODIUM 50 MCG TABLET PO SCH (08:16)
[2021-11-28 08:33] LABS: BUN Creatinine Ratio 11.6 (10-20); Calcium 8.8 mg/dl (8.5-10.1); Creatinine Clr Calc Pharmacy 60.1 ml/min; Est GFR (African American) 70.4 ml/min; Est GFR (Non-African American) 60.7 ml/min; Potassium 2.4 mmol/L (3.5-5.1)
--- NOTE | 2021-11-28 08:39 | Pharmacy Report ---
Pharmacy Glycemic Short Note 2 - Date of Service November 28, 2021 - Glycemic Short BSG Results (Last 24 hours): 11/28/21 11/28/21 11/28/21 02:38 03:01 05:38 Glucose 627 H* POC Glucose > 600 H* 474 H* 11/28/21 11/28/21 07:46 07:47 Glucose 367 H* POC Glucose 372 H* OUTPATIENT ANTIDIABETIC REGIMEN: * None * A1c = 11/28/21 11.2% ASSESSMENT: * 56 year old male with ~2 weeks of hyperglycemia symptoms (increased thirst & urination, blurry vision) after switching to regular soda from diet. Blood sugar in the ER was 630. No AG or acidosis. No prior diagnosis of DM. A1c 11.2%. K 2.3 on admission, therefore SQ insulin given instead of IV. * Blood sugar improved from 474 -- > 372mg/dl with 12 units SQ NovoLog this Am, repeat K = 2.4 this AM, continue with SQ insulin at this time. * Blood sugar 372mg/dl --> 89mg/dl from breakfast to lunch with CF 20 CR 7, 15 units of NovoLog and Lantus 30 units. * Loosen NovoLog parameters and place Lantus on hold until AM to prevent hypoglycemia. * CDE consult for new DM Dx. PLAN FOR INPATIENT GLYCEMIC CONTROL: * Basal insulin * Lantus 30 units SQ daily, given today, hold dose tomorrow until [facility] evaluates * Bolus insulin * NovoLog per scale ACHS or Q6hrs while NPO * Goal Range: Low 110 mg/dL - High 140 mg/dL * Correction Factor: 20 mg/dL/unit with breakfast - loosen to 30mg/dL/unit at lunch * Nutritional / Prandial insulin per carb ratio of 1 unit per 7 grams CHO consumed with breakfast - loosen to 12 at lunch
[2021-11-28] MEDS: INSULIN ASPART PER UNIT SC SCH ×4 (08:48→20:15)
[2021-11-28] MEDS ORDERED: LANTUS PER UNIT CHARGE SQ SCH ×2 (09:00→21:00)
[2021-11-28 10:11] LABS: Estimated Average Glucose 275 mg/dl; Hemoglobin A1C 11.2 % (4.5-5.6)
--- NOTE | 2021-11-28 15:48 | Hospitalist Progress Note ---
Date of Service November 28, 2021 Assessment & Plan (1) Diabetes mellitus: Plan: CDS: (Likely) Type 2 diabetes mellitus with hyperglycemia New onset diabetes mellitus. HgbA1C 11.2%. Blood glucose was normal during admission just 3 months ago. He did recently have COVID in the last 6 mo but has a habit of drinking 80 oz. of regular soda per day plus admits to being a "candy fiend." No family history of DMII. He is overweight/obese, but it does seem fairly acute in onset. With hyperglycemia here in the 600s, now improving with starting insulin and giving IVFs No DKA Recent CT abd/pel as outpt shows no abnormalities of pancreas however was done without contrast due to h/o CKD Appreciate CDE consultation-has glucometer and will need test strips and lancets on discharge -continue Lantus and Novolog, calculate home dose after 24 hours or more of insulin here -could start metformin on discharge -counseled on cutting out all excessive carbs from diet, weight loss -check insulin auto-antibodies, DIMAS 65, ICA, etc. -needs f/u with Endocrine after discharge-asked Nurse Navigator to help arrange this appointment -will need close PCP follow up also after discharge (2) Hypokalemia: Plan: Due to hyperaldosteronism. Was given a total of 60 meq IV/po KCl after admission, K+ still low at 2.4 Give another 40 meq IV KCl and 40 meq po KCl this AM Checked labs again this afternoon--> replete with IV magnesium and another 40 meq po KCl in afternoon and another 40 po hs -follow BMP, Mag in AM Continue IVFs with KCl -he will ask family to bring in eplerenone from home (3) Hypertension: Plan: Patient reports not frequently checking home BPs until about 3-4 days ago. Reports BPs being 170/95 - 190/105 at home and at the doctor's office. BPs quite high here, now improving with restarting amlodipine 5mg daily and giving po hydralazine as a prn - Continue home metoprolol & eplerenone - Restarted prior amlodipine (patient stopped this just 4 days ago when he started eplerenone) - Hydralazine PO PRN (4) CKD (chronic kidney disease) stage 2, GFR 60-89 ml/min: Plan: Baseline Cr ~1.2 - 1.5, so patient is on upper end of his baseline on admission. - IV fluids for hyperglycemia - Monitor Cr (5) Microcytosis: Plan: MCV noted to be 79. Most priors are on the low side. - Iron studies consistent with anemia of chronic disease follow as outpt (6) Hyperaldosteronism: Plan: Per Dr. Kim's note, diagnosed ~20 years ago. Has not seen an recycling collections driver in many years. - Continue home eplerenone - f/u with Endocrinology and Nephro as outpt (7) Primary hypopituitarism: Plan: Per report from . - No inpatient needs was on GH and thyroid hormone replacement in childhood TSH here checked and normal cortisol AM normal (8) Hypothyroidism: Plan: TSH here normal although is central hypothryoidism, would need to check FT3 and FT4-will check in AM - Continue home Synthroid 50 mcg for now (9) DVT prophylaxis: Plan: SCDs Dispo-continued stay for hypokalemia, insulin management, possible dc to home in 1-2 days Admission and Anticipated Discharge Date Admission Date: November 28, 2021 Subjective Pt feeling a little better. Urinating less. No CP, SOB,abd pain, nausea. Tele with NSR 60-70s Review of Systems Review of Systems: All systems reviewed & are unremarkable except as noted in HPI & below Physical Exam Constitutional: WD/WN, vitals as above Eyes: PERRL, conjunctivae normal, anicteric sclerae ENMT: external ear and nose normal, oropharynx normal Neck: trachea midline, no thyromegaly Respiratory: normal respiratory effort, lungs clear to auscultation Cardiovascular: RRR, no murmur, no edema Chest (Breasts): Chest: normal inspection of chest Gastrointestinal (Abdomen): normal bowel sounds, soft, nontender, no hepatosplenomegaly Musculoskeletal: Extremities: extremities normal to inspection; no cyanosis and no clubbing Skin: no rashes, warm and dry Neurologic: moves all extremities and awake; no focal motor deficits Psychiatric: A+Ox3, euthymic affect Lymphatic: no lymphedema Results & Data Results & Data ([facility]) Vital Signs (Past 12 Hours) Vital Signs Temp Pulse Pulse Resp BP BP Pulse Ox 11/28/21 15:03 36.7 C 64 18 155/81 H 93 11/28/21 14:56 63 11/28/21 11:49 36.5 C 70 20 162/100 H 94 11/28/21 08:07 36.4 C L 67 18 168/100 H 95 11/28/21 08:03 70 11/28/21 06:24 60 11/28/21 05:30 36.6 C 67 18 200/107 H 95 11/28/21 04:30 71 12 196/110 H 97 11/28/21 04:01 65 19 210/112 H 96 Laboratory Results 11/28/21 11/28/21 11/28/21 Range/Units 16:24 15:44 14:28 WBC (4.8-10.8) K/uL RBC (4.7-6.1) M/uL Hgb (14.0-18.0) g/dL Hct (42-52) % MCV (80-100) fL MCH (25-34) pg MCHC (32-36) g/dL RDW Std Deviation (36.4-46.3) fL RDW Coeff of Cathie (11.5-14.5) % Plt Count (130-400) K/uL MPV (7.4-10.4) fL Immature Gran % (Auto) % Neut % (Auto) % Lymph % (Auto) % [place] % (Auto) % Eos % (Auto) % Baso % (Auto) % Neut # (Auto) (1.4-6.5) K/uL Lymph # (Auto) (1.2-3.4) K/uL [place] # (Auto) (0.11-0.59) K/uL Eos # (Auto) (0-0.5) K/uL Baso # (Auto) (0-0.2) K/uL Immature Gran # (Auto) (0.00-0.02) K/uL VBG pH (7.36-7.41) VBG pCO2 (38-50) mmHg VBG pO2 mmHg VBG HCO3 mmol/L VBG O2 Saturation % VBG Base Excess mEq/L Sodium 138 (136-145) mmol/L Potassium 3.0 L D (3.5-5.1) mmol/L Chloride 104 (98-107) mmol/L Carbon Dioxide 28 (21-32) mmol/L Anion Gap 6 (3-11) BUN 15 (6-23) mg/dl Creatinine 1.36 (0.6-1.4) mg/dl Est Cr Clr Drug Dosing 57.0 ml/min Est GFR ( Amer) 66.0 ml/min Est GFR (Non-Af Amer) 57.0 ml/min BUN/Creatinine Ratio 11.0 (10-20) Glucose 148 H (70-99(Fasting)) mg/dl POC Glucose 196 H (70-99) mg/dl Estimat Average Glucose mg/dl Hemoglobin A1c (4.5-5.6) % C-Peptide Pending Calcium 8.7 (8.5-10.1) mg/dl Magnesium 1.7 (1.7-2.4) mg/dl Iron (35-175) mcg/dl Unsaturated IBC (155-355) mcg/dl Transferrin (200-360) mg/dl Ferritin (8-388) ng/ml Total Bilirubin (0.2-1.0) mg/dl AST (13-39) U/L ALT (7-52) U/L Alkaline Phosphatase (34-104) U/L Total Protein (6.0-8.3) gm/dl Albumin (3.4-5.0) gm/dl Globulin (2.5-4.0) gm/dl Albumin/Globulin Ratio (0.9-2) Lipase (11-82) U/L TSH (0.300-4.500) uIu/ml Cortisol AM Sample (6.2-22.6) mcg/dl SARS-CoV-2, RNA, NAAT (NEGATIVE) 11/28/21 11/28/21 11/28/21 Range/Units 14:28 11:31 07:47 WBC (4.8-10.8) K/uL RBC (4.7-6.1) M/uL Hgb (14.0-18.0) g/dL Hct (42-52) % MCV (80-100) fL MCH (25-34) pg MCHC (32-36) g/dL RDW Std Deviation (36.4-46.3) fL RDW Coeff of Cathie (11.5-14.5) % Plt Count (130-400) K/uL MPV (7.4-10.4) fL Immature Gran % (Auto) % Neut % (Auto) % Lymph % (Auto) % [place] % (Auto) % Eos % (Auto) % Baso % (Auto) % Neut # (Auto) (1.4-6.5) K/uL Lymph # (Auto) (1.2-3.4) K/uL [place] # (Auto) (0.11-0.59) K/uL Eos # (Auto) (0-0.5) K/uL Baso # (Auto) (0-0.2) K/uL Immature Gran # (Auto) (0.00-0.02) K/uL VBG pH (7.36-7.41) VBG pCO2 (38-50) mmHg VBG pO2 mmHg VBG HCO3 mmol/L VBG O2 Saturation % VBG Base Excess mEq/L Sodium (136-145) mmol/L Potassium (3.5-5.1) mmol/L Chloride (98-107) mmol/L Carbon Dioxide (21-32) mmol/L Anion Gap (3-11) BUN (6-23) mg/dl Creatinine (0.6-1.4) mg/dl Est Cr Clr Drug Dosing ml/min Est GFR ( Amer) ml/min Est GFR (Non-Af Amer) ml/min BUN/Creatinine Ratio (10-20) Glucose (70-99(Fasting)) mg/dl POC Glucose 89 372 H* (70-99) mg/dl Estimat Average Glucose mg/dl Hemoglobin A1c (4.5-5.6) % C-Peptide Calcium (8.5-10.1) mg/dl Magnesium Cancelled (1.7-2.4) mg/dl Iron (35-175) mcg/dl Unsaturated IBC (155-355) mcg/dl Transferrin (200-360) mg/dl Ferritin (8-388) ng/ml Total Bilirubin (0.2-1.0) mg/dl AST (13-39) U/L ALT (7-52) U/L Alkaline Phosphatase (34-104) U/L Total Protein (6.0-8.3) gm/dl Albumin (3.4-5.0) gm/dl Globulin (2.5-4.0) gm/dl Albumin/Globulin Ratio (0.9-2) Lipase (11-82) U/L TSH (0.300-4.500) uIu/ml Cortisol AM Sample (6.2-22.6) mcg/dl SARS-CoV-2, RNA, NAAT (NEGATIVE) 11/28/21 11/28/21 11/28/21 Range/Units 07:46 07:46 07:45 WBC (4.8-10.8) K/uL RBC (4.7-6.1) M/uL Hgb (14.0-18.0) g/dL Hct (42-52) % MCV (80-100) fL MCH (25-34) pg MCHC (32-36) g/dL RDW Std Deviation (36.4-46.3) fL RDW Coeff of Cathie (11.5-14.5) % Plt Count (130-400) K/uL MPV (7.4-10.4) fL Immature Gran % (Auto) % Neut % (Auto) % Lymph % (Auto) % [place] % (Auto) % Eos % (Auto) % Baso % (Auto) % Neut # (Auto) (1.4-6.5) K/uL Lymph # (Auto) (1.2-3.4) K/uL [place] # (Auto) (0.11-0.59) K/uL Eos # (Auto) (0-0.5) K/uL Baso # (Auto) (0-0.2) K/uL Immature Gran # (Auto) (0.00-0.02) K/uL VBG pH (7.36-7.41) VBG pCO2 (38-50) mmHg VBG pO2 mmHg VBG HCO3 mmol/L VBG O2 Saturation % VBG Base Excess mEq/L Sodium 138 (136-145) mmol/L Potassium 2.4 L* (3.5-5.1) mmol/L Chloride 100 (98-107) mmol/L Carbon Dioxide 31 (21-32) mmol/L Anion Gap 7 (3-11) BUN 15 (6-23) mg/dl Creatinine 1.29 (0.6-1.4) mg/dl Est Cr Clr Drug Dosing 60.1 ml/min Est GFR ( Amer) 70.4 ml/min Est GFR (Non-Af Amer) 60.7 ml/min BUN/Creatinine Ratio 11.6 (10-20) Glucose 367 H* (70-99(Fasting)) mg/dl POC Glucose (70-99) mg/dl Estimat Average Glucose mg/dl Hemoglobin A1c (4.5-5.6) % C-Peptide Calcium 8.8 (8.5-10.1) mg/dl Magnesium (1.7-2.4) mg/dl Iron (35-175) mcg/dl Unsaturated IBC (155-355) mcg/dl Transferrin (200-360) mg/dl Ferritin (8-388) ng/ml Total Bilirubin (0.2-1.0) mg/dl AST (13-39) U/L ALT (7-52) U/L Alkaline Phosphatase (34-104) U/L Total Protein (6.0-8.3) gm/dl Albumin (3.4-5.0) gm/dl Globulin (2.5-4.0) gm/dl Albumin/Globulin Ratio (0.9-2) Lipase (11-82) U/L TSH 3.510 (0.300-4.500) uIu/ml Cortisol AM Sample 7.53 (6.2-22.6) mcg/dl SARS-CoV-2, RNA, NAAT (NEGATIVE) 11/28/21 11/28/21 11/28/21 Range/Units 05:38 03:01 02:38 WBC (4.8-10.8) K/uL RBC (4.7-6.1) M/uL Hgb (14.0-18.0) g/dL Hct (42-52) % MCV (80-100) fL MCH (25-34) pg MCHC (32-36) g/dL RDW Std Deviation (36.4-46.3) fL RDW Coeff of Cathie (11.5-14.5) % Plt Count (130-400) K/uL MPV (7.4-10.4) fL Immature Gran % (Auto) % Neut % (Auto) % Lymph % (Auto) % [place] % (Auto) % Eos % (Auto) % Baso % (Auto) % Neut # (Auto) (1.4-6.5) K/uL Lymph # (Auto) (1.2-3.4) K/uL [place] # (Auto) (0.11-0.59) K/uL Eos # (Auto) (0-0.5) K/uL Baso # (Auto) (0-0.2) K/uL Immature Gran # (Auto) (0.00-0.02) K/uL VBG pH (7.36-7.41) VBG pCO2 (38-50) mmHg VBG pO2 mmHg VBG HCO3 mmol/L VBG O2 Saturation % VBG Base Excess mEq/L Sodium (136-145) mmol/L Potassium (3.5-5.1) mmol/L Chloride (98-107) mmol/L Carbon Dioxide (21-32) mmol/L Anion Gap (3-11) BUN (6-23) mg/dl Creatinine (0.6-1.4) mg/dl Est Cr Clr Drug Dosing ml/min Est GFR ( Amer) ml/min Est GFR (Non-Af Amer) ml/min BUN/Creatinine Ratio (10-20) Glucose (70-99(Fasting)) mg/dl POC Glucose 474 H* > 600 H* (70-99) mg/dl Estimat Average Glucose mg/dl Hemoglobin A1c (4.5-5.6) % C-Peptide Calcium (8.5-10.1) mg/dl Magnesium 1.9 (1.7-2.4) mg/dl Iron 61 (35-175) mcg/dl Unsaturated IBC 213 (155-355) mcg/dl Transferrin 191 L (200-360) mg/dl Ferritin 197.2 (8-388) ng/ml Total Bilirubin (0.2-1.0) mg/dl AST (13-39) U/L ALT (7-52) U/L Alkaline Phosphatase (34-104) U/L Total Protein (6.0-8.3) gm/dl Albumin (3.4-5.0) gm/dl Globulin (2.5-4.0) gm/dl Albumin/Globulin Ratio (0.9-2) Lipase (11-82) U/L TSH (0.300-4.500) uIu/ml Cortisol AM Sample (6.2-22.6) mcg/dl SARS-CoV-2, RNA, NAAT (NEGATIVE) 11/28/21 11/28/21 11/28/21 Range/Units 02:38 02:38 02:38 WBC 5.69 (4.8-10.8) K/uL RBC 5.05 (4.7-6.1) M/uL Hgb 14.5 (14.0-18.0) g/dL Hct 39.7 L (42-52) % MCV 78.6 L (80-100) fL MCH 28.7 (25-34) pg MCHC 36.5 H (32-36) g/dL RDW Std Deviation 36.5 (36.4-46.3) fL RDW Coeff of Cathie 12.8 (11.5-14.5) % Plt Count 232 (130-400) K/uL MPV 10.6 H (7.4-10.4) fL Immature Gran % (Auto) 0.2 % Neut % (Auto) 59.4 % Lymph % (Auto) 29.5 % [place] % (Auto) 6.2 % Eos % (Auto) 4.2 % Baso % (Auto) 0.5 % Neut # (Auto) 3.38 (1.4-6.5) K/uL Lymph # (Auto) 1.68 (1.2-3.4) K/uL [place] # (Auto) 0.35 (0.11-0.59) K/uL Eos # (Auto) 0.24 (0-0.5) K/uL Baso # (Auto) 0.03 (0-0.2) K/uL Immature Gran # (Auto) 0.01 (0.00-0.02) K/uL VBG pH 7.44 H (7.36-7.41) VBG pCO2 49 (38-50) mmHg VBG pO2 41 mmHg VBG HCO3 33 mmol/L VBG O2 Saturation 71.6 % VBG Base Excess 7.8 mEq/L Sodium 131 L (136-145) mmol/L Potassium 2.3 L* (3.5-5.1) mmol/L Chloride 91 L (98-107) mmol/L Carbon Dioxide 29 (21-32) mmol/L Anion Gap 11 (3-11) BUN 18 (6-23) mg/dl Creatinine 1.48 H (0.6-1.4) mg/dl Est Cr Clr Drug Dosing 52.4 ml/min Est GFR ( Amer) 59.6 ml/min Est GFR (Non-Af Amer) 51.4 ml/min BUN/Creatinine Ratio 12.2 (10-20) Glucose 627 H* (70-99(Fasting)) mg/dl POC Glucose (70-99) mg/dl Estimat Average Glucose mg/dl Hemoglobin A1c (4.5-5.6) % C-Peptide Calcium 9.5 (8.5-10.1) mg/dl Magnesium (1.7-2.4) mg/dl Iron (35-175) mcg/dl Unsaturated IBC (155-355) mcg/dl Transferrin (200-360) mg/dl Ferritin (8-388) ng/ml Total Bilirubin 1.1 H (0.2-1.0) mg/dl AST 36 (13-39) U/L ALT 48 (7-52) U/L Alkaline Phosphatase 119 H (34-104) U/L Total Protein 7.1 (6.0-8.3) gm/dl Albumin 4.2 (3.4-5.0) gm/dl Globulin 2.9 (2.5-4.0) gm/dl Albumin/Globulin Ratio 1.4 (0.9-2) Lipase 77 (11-82) U/L TSH (0.300-4.500) uIu/ml Cortisol AM Sample (6.2-22.6) mcg/dl SARS-CoV-2, RNA, NAAT (NEGATIVE) 11/28/21 11/28/21 Range/Units 02:38 02:38 WBC (4.8-10.8) K/uL RBC (4.7-6.1) M/uL Hgb (14.0-18.0) g/dL Hct (42-52) % MCV (80-100) fL MCH (25-34) pg MCHC (32-36) g/dL RDW Std Deviation (36.4-46.3) fL RDW Coeff of Cathie (11.5-14.5) % Plt Count (130-400) K/uL MPV (7.4-10.4) fL Immature Gran % (Auto) % Neut % (Auto) % Lymph % (Auto) % [place] % (Auto) % Eos % (Auto) % Baso % (Auto) % Neut # (Auto) (1.4-6.5) K/uL Lymph # (Auto) (1.2-3.4) K/uL [place] # (Auto) (0.11-0.59) K/uL Eos # (Auto) (0-0.5) K/uL Baso # (Auto) (0-0.2) K/uL Immature Gran # (Auto) (0.00-0.02) K/uL VBG pH (7.36-7.41) VBG pCO2 (38-50) mmHg VBG pO2 mmHg VBG HCO3 mmol/L VBG O2 Saturation % VBG Base Excess mEq/L Sodium (136-145) mmol/L Potassium (3.5-5.1) mmol/L Chloride (98-107) mmol/L Carbon Dioxide (21-32) mmol/L Anion Gap (3-11) BUN (6-23) mg/dl Creatinine (0.6-1.4) mg/dl Est Cr Clr Drug Dosing ml/min Est GFR ( Amer) ml/min Est GFR (Non-Af Amer) ml/min BUN/Creatinine Ratio (10-20) Glucose (70-99(Fasting)) mg/dl POC Glucose (70-99) mg/dl Estimat Average Glucose 275 mg/dl Hemoglobin A1c 11.2 H (4.5-5.6) % C-Peptide Calcium (8.5-10.1) mg/dl Magnesium (1.7-2.4) mg/dl Iron (35-175) mcg/dl Unsaturated IBC (155-355) mcg/dl Transferrin (200-360) mg/dl Ferritin (8-388) ng/ml Total Bilirubin (0.2-1.0) mg/dl AST (13-39) U/L ALT (7-52) U/L Alkaline Phosphatase (34-104) U/L Total Protein (6.0-8.3) gm/dl Albumin (3.4-5.0) gm/dl Globulin (2.5-4.0) gm/dl Albumin/Globulin Ratio (0.9-2) Lipase (11-82) U/L TSH (0.300-4.500) uIu/ml Cortisol AM Sample (6.2-22.6) mcg/dl SARS-CoV-2, RNA, NAAT NEGATIVE (NEGATIVE) PG Care Time/CCT Total # of Minutes Spent Total Time Spent with Patient: Total time spent is greater than 50% in coordination of care (as documented) at patient's floor/unit and/or counseling patient: Coding Level of Care Code 63658 Subseq Hosp Care Lvl 3 Diagnoses Hypokalemia E87.6 Hypertension I10 CKD (chronic kidney disease) stage 2, GFR 60-89 ml/min N18.2 Microcytosis R71.8 Hyperaldosteronism E26.9 Primary hypopituitarism E23.0 Hypothyroidism E03.9 DVT prophylaxis Z29.9 Diabetes mellitus E11.9
[2021-11-28 15:57] LABS: Calcium 8.7 mg/dl (8.5-10.1); Magnesium 1.7 mg/dl (1.7-2.4)
[2021-11-28] MEDS: MAGNESIUM SULFATE / D5W 1 GM/100 ML BAG IV SCH ×2 (16:27→18:28)
[2021-11-28] MEDS: METOPROLOL SUCC 50MG EXT REL TAB PO SCH (20:03)
[2021-11-28] MEDS: ATORVASTATIN 40 MG TAB PO SCH (20:03)
[2021-11-28] MEDS ORDERED: POTASSIUM CHLORIDE CRTAB 20 MEQ TABCR PO ONE (21:00)
[2021-11-29] MEDS: INSULIN ASPART PER UNIT SC SCH ×7 (00:07→20:51)
[2021-11-29] MEDS: EPLERENONE~ORDER AWAITING ACTION SCH ×4 (00:11→22:47)
[2021-11-29] MEDS: LEVOTHYROXINE SODIUM 50 MCG TABLET PO SCH (06:26)
[2021-11-29] MEDS: POTASSIUM CHLORIDE 40 MEQ in SODIUM CHLORIDE 0.9% 1000ML 1,000 ML IV SCH ×3 (06:26→23:19)
[2021-11-29 08:29] LABS: Hematocrit (blood only) 39.4 % (42-52); Mean Corpuscular Hemoglobin 28.9 pg (25-34); Mean Corpuscular Hgb Conc 35.5 g/dL (32-36); Mean Corpuscular Volume 81.4 fL (80-100); Mean Platelet Volume 10.2 fL (7.4-10.4); Platelet Count 215 K/uL (130-400); RDW Coefficient of Variation 13.3 % (11.5-14.5); RDW Standard Deviation 39.9 fL (36.4-46.3); Red Blood Count 4.84 M/uL (4.7-6.1); White Blood Count 5.41 K/uL (4.8-10.8)
[2021-11-29 08:38] LABS: BUN Creatinine Ratio 10.5 (10-20); Calcium 7.7 mg/dl (8.5-10.1); Est GFR (African American) 81.7 ml/min; Est GFR (Non-African American) 70.5 ml/min; Potassium 3.2 mmol/L (3.5-5.1)
[2021-11-29 08:47] LABS: T3 Free 2.6 pg/ml (2.3-4.2)
[2021-11-29] MEDS ORDERED: LANTUS PER UNIT CHARGE SQ SCH (09:00)
[2021-11-29] MEDS ORDERED: metFORMIN HCL ER 500 MG TABCR PO ONE (13:34)
--- NOTE | 2021-11-29 14:02 | Pharmacy Report ---
Pharmacy Glycemic Short Note 2 - Date of Service November 29, 2021 - Glycemic Short BSG Results (Last 24 hours): 11/28/21 11/28/21 11/28/21 14:28 16:24 20:07 Glucose 148 H POC Glucose 196 H 209 H 11/29/21 11/29/21 11/29/21 00:05 03:54 07:23 Glucose POC Glucose 100 H 138 H 157 H 11/29/21 11/29/21 07:45 11:21 Glucose 160 H POC Glucose 268 H OUTPATIENT ANTIDIABETIC REGIMEN: * None * A1c = 11/28/21 11.2% ASSESSMENT: 11/29/21: * Ever received 85 units of SQ insulin yesterday (Lantus 45 units + 40 units Novolog) * Fasting BSG of 157 mg/dL is much improved. Will slightly reduce Lantus dose. I expect patient to require less once doing reaches steady state. * Post prandial BSG improvement noted yesterday, however, BSG increased to 268 mg/dL at lunchtime today despite receiving 12 units of novolog this morning. I am hesitant to tighten novolog parameter further per patient is already at weight/stress 3. * Plan is to discharge patient on once daily basal insulin + metformin. Will start metformin today. Background: * 56 year old male with ~2 weeks of hyperglycemia symptoms (increased thirst & urination, blurry vision) after switching to regular soda from diet. Blood sugar in the ER was 630. No AG or acidosis. No prior diagnosis of DM. A1c 11.2%. K 2.3 on admission, therefore SQ insulin given instead of IV. * Blood sugar improved from 474 -- > 372mg/dl with 12 units SQ NovoLog this Am, repeat K = 2.4 this AM, continue with SQ insulin at this time. * Blood sugar 372mg/dl --> 89mg/dl from breakfast to lunch with CF 20 CR 7, 15 units of NovoLog and Lantus 30 units. * Loosen NovoLog parameters and place Lantus on hold until AM to prevent hypoglycemia. * CDE consult for new DM Dx. PLAN FOR INPATIENT GLYCEMIC CONTROL: * Start metformin 500 mg ER daily * Basal insulin * Lantus 40 units SQ daily - re-eval 11/30 * Bolus insulin * NovoLog per scale ACHS or Q6hrs while NPO * Goal Range: Low 110 mg/dL - High 140 mg/dL * Correction Factor: 20 mg/dL/unit with breakfast * Nutritional / Prandial insulin per carb ratio of 1 unit per 6 grams CHO consumed with breakfast
[2021-11-29] MEDS: POTASSIUM CHLORIDE CRTAB 20 MEQ TABCR PO SCH ×2 (15:05→20:52)
[2021-11-29] MEDS: METOPROLOL SUCC 50MG EXT REL TAB PO SCH (20:52)
[2021-11-29] MEDS: amLODIPine BESYLATE 5 MG TAB PO SCH (20:53)
[2021-11-29] MEDS: ATORVASTATIN 40 MG TAB PO SCH (20:53)
--- NOTE | 2021-11-29 21:12 | Hospitalist Progress Note ---
Date of Service November 29, 2021 Assessment & Plan (1) Diabetes mellitus: Plan: CDS: (Likely) Type 2 diabetes mellitus with hyperglycemia New onset diabetes mellitus. HgbA1C 11.2%. Blood glucose was normal during admission just 3 months ago. He did recently have COVID in the last 6 mo but has a habit of drinking 80 oz. of regular soda per day plus admits to being a "candy fiend." No family history of DMII. He is overweight/obese, but it does seem fairly acute in onset. With hyperglycemia here in the 600s, now improving with starting insulin and giving IVFs No DKA Recent CT abd/pel as outpt shows no abnormalities of pancreas however was done without contrast due to h/o CKD Appreciate CDE consultation-has glucometer and will need test strips and lancets on discharge -continue Lantus and Novolog, calculate home dose after 24 hours or more of insulin here -could start metformin on discharge -counseled on cutting out all excessive carbs from diet, weight loss -check insulin auto-antibodies, DMIAS 65, ICA, etc. (still pending) -needs f/u with Endocrine after discharge-asked Nurse Navigator to help arrange this appointment -will need close PCP follow up also after discharge -added metformin xr on 11/29 -will montior blood sugars for another 24 hours. -Anticipate discharge tomorrow. (2) Hypokalemia: Plan: Due to hyperaldosteronism. Was given a total of 60 meq IV/po KCl after admission, K+ still low at 2.4 Give another 40 meq IV KCl and 40 meq po KCl this AM Checked labs again this afternoon--> replete with IV magnesium and another 40 meq po KCl in afternoon and another 40 po hs -follow BMP, Mag in AM Continue IVFs with KCl -he will ask family to bring in eplerenone from home (3) Hypertension: Plan: Patient reports not frequently checking home BPs until about 3-4 days ago. Reports BPs being 170/95 - 190/105 at home and at the doctor's office. BPs quite high here, now improving with restarting amlodipine 5mg daily and giving po hydralazine as a prn - Continue home metoprolol & eplerenone - Restarted prior amlodipine (patient stopped this just 4 days ago when he started eplerenone) - Hydralazine PO PRN (4) CKD (chronic kidney disease) stage 2, GFR 60-89 ml/min: Plan: Baseline Cr ~1.2 - 1.5, so patient is on upper end of his baseline on admission. - IV fluids for hyperglycemia - Monitor Cr (5) Microcytosis: Plan: MCV noted to be 79. Most priors are on the low side. - Iron studies consistent with anemia of chronic disease follow as outpt (6) Hyperaldosteronism: Plan: Per Dr. Kim's note, diagnosed ~20 years ago. Has not seen an sash sticker in many years. - Continue home eplerenone - f/u with Endocrinology and Nephro as outpt (7) Primary hypopituitarism: Plan: Per report from . - No inpatient needs was on GH and thyroid hormone replacement in childhood TSH here checked and normal cortisol AM normal (8) Hypothyroidism: Plan: TSH here normal although is central hypothryoidism, would need to check FT3 and FT4-will check in AM - Continue home Synthroid 50 mcg for now (9) DVT prophylaxis: Plan: SCDs Dispo-continued stay for hypokalemia, insulin management, possible dc to home in 1-2 days Admission and Anticipated Discharge Date Admission Date: November 28, 2021 Subjective 56 yo male reports no new symptoms. Review of Systems Review of Systems: All systems reviewed & are unremarkable except as noted in HPI & below Physical Exam Physical Exam: Constitutional: WD/WN, vitals as above Eyes: PERRL, conjunctivae normal, anicteric sclerae ENMT: external ear and nose normal, oropharynx normal Neck: trachea midline, no thyromegaly Respiratory: normal respiratory effort, lungs clear to auscultation Cardiovascular: RRR, no murmur, no edema Chest (Breasts): Chest: normal inspection of chest Gastrointestinal (Abdomen): normal bowel sounds, soft, nontender, no hepatosplenomegaly Musculoskeletal: Extremities: extremities normal to inspection; no cyanosis and no clubbing Skin: no rashes, warm and dry Neurologic: moves all extremities and awake; no focal motor deficits Psychiatric: A+Ox3, euthymic affect Lymphatic: no lymphedema Results & Data Results & Data ([facility]) Vital Signs (Past 12 Hours) Vital Signs Temp Pulse Pulse Resp BP Pulse Ox 11/29/21 19:26 36.7 C 75 20 189/100 H 97 11/29/21 15:54 70 11/29/21 15:04 36.7 C 77 20 158/97 H 97 11/29/21 11:02 36.5 C 65 20 165/106 H 97 PG Care Time/CCT Total # of Minutes Spent Total Time Spent with Patient: Total time spent is greater than 50% in coordination of care (as documented) at patient's floor/unit and/or counseling patient: Coding Level of Care Code 47939 Subseq Hosp Care Lvl 2 Diagnoses Diabetes mellitus E11.9 Hypokalemia E87.6 Hypertension I10 CKD (chronic kidney disease) stage 2, GFR 60-89 ml/min N18.2 Microcytosis R71.8 Hyperaldosteronism E26.9 Primary hypopituitarism E23.0 Hypothyroidism E03.9 DVT prophylaxis Z29.9
[2021-11-30] MEDS: INSULIN ASPART PER UNIT SC SCH ×4 (01:07→12:07)
[2021-11-30] MEDS: LEVOTHYROXINE SODIUM 50 MCG TABLET PO SCH (05:47)
[2021-11-30] MEDS: POTASSIUM CHLORIDE 40 MEQ in SODIUM CHLORIDE 0.9% 1000ML 1,000 ML IV SCH (08:52)
[2021-11-30] MEDS: POTASSIUM CHLORIDE CRTAB 20 MEQ TABCR PO SCH (08:53)
[2021-11-30] MEDS: EPLERENONE~ORDER AWAITING ACTION SCH (08:55)
[2021-11-30] MEDS ORDERED: metFORMIN HCL ER 500 MG TABCR PO SCH ×2 (09:00→21:00)
[2021-11-30] MEDS ORDERED: LANTUS PER UNIT CHARGE SQ SCH (09:00)
[2021-11-30 09:23] LABS: BUN Creatinine Ratio 9.5 (10-20); Calcium 8.1 mg/dl (8.5-10.1); Creatinine Clr Calc Pharmacy 66.8 ml/min; Potassium 3.4 mmol/L (3.5-5.1)
--- NOTE | 2021-12-02 15:34 | Discharge Summary ---
Date of Service November 30, 2021 Admission HPI Per Admitting Provider 56yo M w/ hx of HTN, hyperaldosteronism, and episode of hyponatremia who presents with hyperglycemia and hypokalemia. The patient has had a difficult year in that he was hospitalized with Covid, diarrhea, and dehydration in June. In July, he was admitted with hyponatremia and required fairly extensive work-up and was felt to be due to spironolactone as well as some amount of SIADH. He first was diagnosed with HTN ~1999 (around age 34) for a work physical. Per Dr. Kim's note from 10/21/2021, a subsequent work-up revealed an elevated aldosterone level and he was diagnosed with hyperaldosteronism. He has been following with Dr. Kim and was seen last on 10/21. At that time, his eplerenone was prescribed, but he reports it was hard for his pharmacy to get, so he just started taking it 4 days ago. At the same time, he stopped his usual amlodipine which he had been taking for many years. Mr. Woodall went to his PCP on 11/26 because he has been experiencing a variety of symptoms. First, he notes that he has been "completely fatigued" since July or August. That is when he started golfing, and he reports that he cannot walk the greens, go up steps, or walk long distances without feeling totally wiped out. He reports that Dr. Kim told him his body cannot process artificial sugar very well, and about 2 months ago, he switched his diet sodas for regular soda. He drinks quite a bit of it, and he has noticed in the last 2 weeks that he's had dry mouth, polyuria, and occasionally blurry vision. He feels that with the constant dry mouth, he has had some dry cough, but no sputum production. He also feels like he has some aching "all over." He denies fevers/chills, denies shortness of breath, denies chest pain, abdominal pain, change in appetite, diarrhea, constipation, or other concerning issues. Principal Diagnosis Type 2 diabetes mellitus with hyperglycemia Discharge Exam Constitutional: WD/WN, vitals as above Eyes: PERRL, conjunctivae normal, anicteric sclerae ENMT: external ear and nose normal, oropharynx normal Neck: trachea midline, no thyromegaly Respiratory: normal respiratory effort, lungs clear to auscultation Cardiovascular: RRR, no murmur, no edema Chest (Breasts): Chest: normal inspection of chest Gastrointestinal (Abdomen): normal bowel sounds, soft, nontender, no hepatosplenomegaly Musculoskeletal: Extremities: extremities normal to inspection; no cyanosis and no clubbing Skin: no rashes, warm and dry Neurologic: moves all extremities and awake; no focal motor deficits Psychiatric: A+Ox3, euthymic affect Lymphatic: no lymphedema Discharge Data Allergies Allergy/AdvReac Type Severity Reaction Status Date / Time Penicillins Allergy Severe HAPPENED Verified 11/28/21 03:01 IN INFANT Consultations 11/28/21 03:45 ED Decision to Admit Stat 11/28/21 15:30 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 HgbA1C 11.2%. Blood glucose was normal during admission just 3 months ago. He did recently have COVID in the last 6 mo but has a habit of drinking 80 oz. of regular soda per day plus admits to being a "candy fiend." No family history of DMII. He is overweight/obese, but it does seem fairly acute in onset. With hyperglycemia here in the 600s, now improving with starting insulin and giving IVFs No DKA Recent CT abd/pel as outpt shows no abnormalities of pancreas however was done without contrast due to h/o CKD Appreciate CDE consultation-has glucometer and will need test strips and lancets on discharge -continue Lantus and Novolog, calculate home dose after 24 hours or more of insulin here -could start metformin on discharge -counseled on cutting out all excessive carbs from diet, weight loss -check insulin auto-antibodies, DIMAS 65, ICA, etc. (still pending) -needs f/u with Endocrine after discharge-asked Nurse Navigator to help arrange this appointment -will need close PCP follow up also after discharge -added metformin xr on 11/29 -blood sugar is better controlled. -Discharge on metformin and 25 units of insulin glargine. (2) Hypokalemia: Due to hyperaldosteronism. Was given a total of 60 meq IV/po KCl after admission, K+ still low at 2.4 Give another 40 meq IV KCl and 40 meq po KCl this AM Checked labs again this afternoon--> replete with IV magnesium and another 40 meq po KCl in afternoon and another 40 po hs -follow BMP, Mag in AM Continue IVFs with KCl -he will ask family to bring in eplerenone from home (3) Hypertension: Patient reports not frequently checking home BPs until about 3-4 days ago. Reports BPs being 170/95 - 190/105 at home and at the doctor's office. BPs quite high here, now improving with restarting amlodipine 5mg daily and g iving po hydralazine as a prn - Continue home metoprolol & eplerenone - Restarted prior amlodipine (patient stopped this just 4 days ago when he started eplerenone) - Hydralazine PO PRN (4) CKD (chronic kidney disease) stage 2, GFR 60-89 ml/min: Baseline Cr ~1.2 - 1.5, so patient is on upper end of his baseline on admission. - IV fluids for hyperglycemia - Monitor Cr (5) Microcytosis: MCV noted to be 79. Most priors are on the low side. - Iron studies consistent with anemia of chronic disease follow as outpt (6) Hyperaldosteronism: Per Dr. Kim's note, diagnosed ~20 years ago. Has not seen an director of maternity services in many years. - Continue home eplerenone - f/u with Endocrinology and Nephro as outpt (7) Primary hypopituitarism: Per report from . - No inpatient needs was on GH and thyroid hormone replacement in childhood TSH here checked and normal cortisol AM normal (8) Hypothyroidism: TSH here normal although is central hypothryoidism, would need to check FT3 and FT4-will check in AM - Continue home Synthroid 50 mcg for now (9) DVT prophylaxis: SCDs Dispo-continued stay for hypokalemia, insulin management, possible dc to home in 1-2 days Total Time Total Time Spent Total Time Spent (In Minutes): 32 Discharge Plan Discharge Items Patient Disposition: Home - Self-Care Reason For Visit: HYPERGLYCEMIA, HYPOKALEMIA Discharge Diagnosis: diabetes Mellitus Activity: Resume your previous activity Non-emergency contact: Primary Care Provider Call non-emergency contact if: you have any medication questions Follow-up/Referrals: Rosalina Salas CRNP [Primary Care Provider] - Diet: Carb Consistent or DM2 Addtl Attending Provider Instructions: Recommend close followup with your PCP in 1 week Recommend followup with Endocrinology clinic. PCP can help with this appointment. Please check you blood sugar 3 times a day morning fasting, before lunch and dinner. Bring your sugar journal to your Primary Care provider and [employer]. Will recommend to continue metformin 500 mg on a full stomach, this will help limit side effects. You will be on insulin long acting 25 units once a day in the morning. For the next wekk and a half, will prescribe potassium 10 meq twice daily. Pending Studies at Discharge: No Stand-Alone Forms: My [facility] Tenders.es, Smoking Cessation Medications and DC Order Prescriptions: New metformin 500 mg Tablet Extended Release 24 Hr 500 mg PO DAILY Qty: 30 RF: 0 insulin glargine [Basaglar KwikPen U-100 Insulin] 100 unit/mL (3 mL) insulin pen 25 unit subcut QAM Qty: 15 RF: 0 (DME) pen needle, diabetic [Pen Needle] 32 gauge x 5/32" needle See Rx Instructions .Route Qty: 100 RF: 0 (DME) OneTouch Verio test strips Strip See Rx Instructions .Route Qty: 100 RF: 0 (DME) lancets [OneTouch Delica Lancets] 33 gauge misc See Rx Instructions .Route Qty: 100 RF: 0 potassium chloride 10 mEq capsule, extended release 10 meq PO BID Qty: 20 RF: 0 Continued amlodipine 5 mg tablet 5 mg PO HS RF: 0 Hold Instructions: Home Medication placed on hold at Doctor's office atorvastatin 40 mg tablet 40 mg PO HS RF: 0 levothyroxine 50 mcg tablet 50 mcg PO DAILYBB RF: 0 metoprolol succinate 50 mg tablet extended release 24 hr 50 mg PO HS RF: 0 eplerenone 25 mg tablet 25 mg PO HS RF: 0 Discharge Orders: Discharge Order (Routine); Ordered 11/30/21 Ordered By: Kavon Malhotra Admission Data Admit Date/Time: 11/28/21 04:21 Attending Provider: Kavon Malhotra Admit Provider: Alex Shay Primary Care Provider: Rosalina Salas Other Providers: Alex Shay Other Interventions: Discharge Summary Assessment (RN) Last Done: 11/30/21 14:07 Coding Level of Care Code D/C DAY MANAGEMENT >30 MINS Diagnoses Diabetes mellitus E11.9 Hypokalemia E87.6 Hypertension I10 CKD (chronic kidney disease) stage 2, GFR 60-89 ml/min N18.2 Microcytosis R71.8 Hyperaldosteronism E26.9 Primary hypopituitarism E23.0 Hypothyroidism E03.9 DVT prophylaxis Z29.9
[2021-12-07 05:46] LABS: Glutamic Acid Decarboxylase 65 <5 IU/mL (<5); Zinc Transporter 8 (ZnT8) Ab <10 U/mL (<15)
== END 2021-11-30 14:43 | disposition home or self-care (01) | DRG 638 ==
LOC: ED 01:39 → SUATTDRO 04:21 → 2N 04:21